=== PATIENT | female | born 1945 | race Caucasian/White ===

== ENCOUNTER 2019-01-24 11:23 | Emergency (ER) | payer MEDICARE, MEDICAID, SELFPAY ==
[2019-01-24 11:33] VITALS: BP 118/68; PULSE 93; RESP 22; TEMP 37.2; O2SAT 95; BMI 48.4
--- NOTE | 2019-01-24 11:33 | DI.RAD.S_ITS ---
PROCEDURE: XR CHEST 1V INDICATIONS: chest pain TECHNIQUE: One view of the chest was acquired. COMPARISON: [facility], , CHEST 1 VIEW, 12/05/2007, 22:53. FINDINGS: Surgical changes and devices: None. Lungs and pleura: Mild emphysematous changes are noted in bilateral lung soliz. Mild pulmonary vascular congestion is also noted. No definite focal infiltrate. No pleural effusions or pneumothorax. Mediastinum: Mildly tortuous thoracic aorta is seen with aortic arch calcifications.. Heart size is normal. Bones and chest wall: No suspicious bony lesions. Overlying soft tissues appear unremarkable. IMPRESSION: Mild pulmonary vascular congestion and COPD. No focal infiltrate, significant pleural effusion or pneumothorax. Dictated by: Archie Daigle M.D. on 01/24/2019 at 11:58 Approved by: Archie Daigle M.D. on 01/24/2019 at 12:02
--- NOTE | 2019-01-24 11:50 | ED_ITS ---
HPI - Chest Pain General Chief Complaint: Chest Pain Stated Complaint: edema legs,bad heart Time Seen by Provider: 01/24/19 11:45 Source: patient, EMS, old records reviewed and other (caregiver) Mode of arrival: EMS Limitations: no limitations History of Present Illness HPI narrative: This is a 74-year-old female was sent to the emergency department for evaluation by her primary care. She saw her physician doctor [facility] yesterday and they wanted her to go to the possible admission for congestive heart failure. Patient states she had some personal issues to attend to and then came here to the ER today. She states she has been increasingly swollen with intermittent episodes of chest pain since Sunday. Probably even before that but she is not sure about the timeline. She states she does she has difficulty breathing when she exerts herself. She has had a chronic cough, she has had clear productive sputum for about 2 months. No other upper respiratory symptoms. She states she has been told she has COPD, she denies any nausea no vomiting she has some early satiety. No issues with bowel movements, no urinary symptoms. Patient states she has not had any new changes to her medications. S he did take nitro sublingually 3 times yesterday, she typically has used it about 5 times over 3 months. She is not sure if she has any atrial fibrillation she states she does have congestive heart failure, she has COPD, she has depression as well as GERD. She has had multiple surgeries. She is from for 57 years and quit years ago, denies tobacco or illicit. She sees either Dr. Crowley or Karen for cardiology. Related Data Home Medications Medication Instructions Recorded Confirmed amlodipine 10 mg PO DAILY 01/24/19 01/24/19 aripiprazole 5 mg PO DAILY 01/24/19 01/24/19 calcium carbonate-vitamin D3 1 tab PO BID 01/24/19 01/24/19 [Calcium 500 + D (D3)] carboxymethylcellulose sodium 2 drp EYE-BOTH QID PRN 01/24/19 01/24/19 citalopram 15 mg PO DAILY 01/24/19 01/24/19 dicyclomine 20 mg PO TID PRN 01/24/19 01/24/19 doxepin 30 mg PO BEDTIME 01/24/19 01/24/19 epinephrine 0.3 mg IM PRN PRN 01/24/19 01/24/19 famotidine 1 tab PO PRN PRN 01/24/19 01/24/19 furosemide 20 mg PO DAILY 01/24/19 01/24/19 garlic 1 cap PO DAILY 01/24/19 01/24/19 ipratropium-albuterol 1 puff INHALATION QID 01/24/19 01/24/19 loratadine 10 mg PO DAILY 01/24/19 01/24/19 metoprolol tartrate 50 mg PO BID 01/24/19 01/24/19 miconazole nitrate 1 applic TOPICAL BID 01/24/19 01/24/19 multivitamin with minerals 1 cap PO DAILY 01/24/19 01/24/19 nitroglycerin 0.4 mg SUBLINGUAL Q5-15M PRN 01/24/19 01/24/19 pantoprazole 40 mg PO BID 01/24/19 01/24/19 simvastatin 20 mg PO BEDTIME 01/24/19 01/24/19 sodium chloride 2 spray INTRANASAL 5XD PRN 01/24/19 01/24/19 vitamin B complex 1 cap PO DAILY 01/24/19 01/24/19 Previous Rx's Medication Instructions Recorded furosemide [Lasix] 20 mg PO DAILY #5 tab 01/24/19 Allergies Allergy/AdvReac Type Severity Reaction Status Date / Time acetaminophen [From Vicodin] Allergy Unknown Verified 01/24/19 12:17 alcohol Allergy Unknown Verified 01/24/19 12:17 ammonia Allergy Unknown Verified 01/24/19 12:17 aspirin Allergy Unknown Verified 01/24/19 12:17 azithromycin Allergy Unknown Verified 01/24/19 12:17 baclofen Allergy Unknown Verified 01/24/19 12:17 buspirone Allergy Unknown Verified 01/24/19 12:17 caffeine Allergy Unknown Verified 01/24/19 12:17 cetirizine Allergy Unknown Verified 01/24/19 12:17 choline salicylate Allergy Unknown Verified 01/24/19 12:17 [From Trilisate] citalopram Allergy Unknown Verified 01/24/19 12:17 codeine Allergy Unknown Verified 01/24/19 12:17 cortisone Allergy Unknown Verified 01/24/19 12:17 cycloserine [From Seromycin] Allergy Unknown Verified 01/24/19 12:17 cyproheptadine Allergy Unknown Verified 01/24/19 12:17 divalproex sodium Allergy Unknown Verified 01/24/19 12:17 erythromycin base Allergy Unknown Verified 01/24/19 12:17 fentanyl [From Duragesic] Allergy Unknown Verified 01/24/19 12:17 fluoxetine Allergy Unknown Verified 01/24/19 12:17 fluticasone Allergy Unknown Verified 01/24/19 12:17 fluvoxamine Allergy Unknown Verified 01/24/19 12:17 gabapentin Allergy Unknown Verified 01/24/19 12:17 garlic Allergy Unknown Verified 01/24/19 12:17 guaifenesin Allergy Unknown Verified 01/24/19 12:17 hornet venom Allergy Unknown Verified 01/24/19 12:17 hydralazine Allergy Unknown Verified 01/24/19 12:17 hydrochlorothiazide Allergy Unknown Verified 01/24/19 12:17 hydrocodone [From Vicodin] Allergy Unknown Verified 01/24/19 12:17 iodine Allergy Unknown Verified 01/24/19 12:17 ipecac Allergy Unknown Verified 01/24/19 12:17 ketorolac [From Toradol] Allergy Unknown Verified 01/24/19 12:17 lansoprazole Allergy Unknown Verified 01/24/19 12:17 levothyroxine Allergy Unknown Verified 01/24/19 12:17 lidocaine Allergy Unknown Verified 01/24/19 12:17 loperamide Allergy Unknown Verified 01/24/19 12:17 magnesium citrate Allergy Unknown Verified 01/24/19 12:17 magnesium salicylate Allergy Unknown Verified 01/24/19 12:17 [From Trilisate] methadone Allergy Unknown Verified 01/24/19 12:17 methocarbamol Allergy Unknown Verified 01/24/19 12:17 midazolam Allergy Unknown Verified 01/24/19 12:17 mirtazapine Allergy Unknown Verified 01/24/19 12:17 morphine Allergy Unknown Verified 01/24/19 12:17 nefazodone Allergy Unknown Verified 01/24/19 12:17 nimodipine Allergy Unknown Verified 01/24/19 12:17 nortriptyline Allergy Unknown Verified 01/24/19 12:17 omeprazole Allergy Unknown Verified 01/24/19 12:17 oxycodone [From Percodan] Allergy Unknown Verified 01/24/19 12:17 oxytocin Allergy Unknown Verified 01/24/19 12:17 paroxetine Allergy Unknown Verified 01/24/19 12:17 Penicillins Allergy Unknown Verified 01/24/19 12:17 phenytoin Allergy Unknown Verified 01/24/19 12:17 promethazine Allergy Unknown Verified 01/24/19 12:17 propofol Allergy Unknown Verified 01/24/19 12:17 pseudoephedrine Allergy Unknown Verified 01/24/19 12:17 psyllium Allergy Unknown Verified 01/24/19 12:17 pyridostigmine Allergy Unknown Verified 01/24/19 12:17 [From Mestinon] quetiapine Allergy Unknown Verified 01/24/19 12:17 rabeprazole Allergy Unknown Verified 01/24/19 12:17 ranitidine Allergy Unknown Verified 01/24/19 12:17 risperidone Allergy Unknown Verified 01/24/19 12:17 sertraline Allergy Unknown Verified 01/24/19 12:17 sodium phosphate Allergy Unknown Verified 01/24/19 12:17 [From Fleet Enema] sucralose Allergy Unknown Verified 01/24/19 12:17 sulfur dioxide Allergy Unknown Verified 01/24/19 12:17 sumatriptan Allergy Unknown Verified 01/24/19 12:17 temazepam Allergy Unknown Verified 01/24/19 12:17 tetracycline Allergy Unknown Verified 01/24/19 12:17 trazodone Allergy Unknown Verified 01/24/19 12:17 venlafaxine Allergy Unknown Verified 01/24/19 12:17 zolpidem Allergy Unknown Verified 01/24/19 12:17 beans Allergy Unknown Uncoded 01/24/19 12:17 chlorine bleach Allergy Unknown Uncoded 01/24/19 12:17 jalapeno peppers Allergy Unknown Uncoded 01/24/19 12:17 paper tape Allergy Unknown Uncoded 01/24/19 12:17 plastics Allergy Unknown Uncoded 01/24/19 12:17 suntan lotions Allergy Unknown Uncoded 01/24/19 12:17 surgical tape Allergy Unknown Uncoded 01/24/19 12:17 Review of Systems Review of Systems ROS Unobtainable: All systems reviewed & are unremarkable except as noted in HPI and below Constitutional Denies chills, Denies fever(s), Denies lethargy and Denies weakness Cardiovascular Reports chest pain, Denies diaphoresis, Denies syncope, Reports edema, Denies irregular heart rhythm, Denies lightheadedness, Denies palpitations, Reports dyspnea, Reports dyspnea on exertion and Denies orthopnea Respiratory Denies change in phlegm color, Denies chest congestion, Reports cough, Reports excessive phlegm production (clear), Reports dyspnea, Reports dyspnea on exertion and Reports wheezing (intermittent) Gastrointestinal Gastrointestinal: Denies abdominal pain, Denies melena, Denies hematochezia, Denies change in bowel habits, Denies diarrhea, Denies nausea and Denies vomiting Genitourinary Denies hematuria, Reports urinary frequency (after taking lasix), Denies dysuria, Denies flank pain, Reports urinary incontinence and Denies urinary urgency Integumentary/Breasts Reports rash (mild redness on lower legs.) Neurologic Denies syncope and Denies weakness Endocrine Denies palpitations Allergic/Immunologic Reports wheezing (intermittent) [facility] Medical History (Updated 01/24/19 @ 13:15 by Rachna Tyson DO) CHF (congestive heart failure) (Chronic) COPD (chronic obstructive pulmonary disease) (Chronic) Depression (Chronic) GERD (gastroesophageal reflux disease) (Chronic) Social History Smoking Status: Former smoker Social History (Updated 01/24/19 @ 12:24 by Rachna Tyson DO) Smoking Status: Former smoker alcohol intake: current substance use type: does not use Exam Narrative Exam Narrative: GENERAL: Alert and oriented x three, obese female in mild distress. HEENT: Head normocephalic, atraumatic, EOMI, pupils reactive, face symmetric, moist mucous membranes NECK: Supple, full range of motion CARDIOVASCULAR: Regular rate and rhythm without murmurs, rubs or gallops. RESPIRATORY: Breath sounds equal bilaterally, no wheezes rales or rhonchi. No tachypnea, no accessory muscle use. ABDOMEN: Soft, nontender. Normoactive bowel sounds all 4 quadrants. No guarding or rebound, rigidity, no mass : No CVA tenderness EXTREMITIES: Normal range of motion, no clubbing. 2+ edema bilateral lower extremities. Pitting. Patient has cap refill less than 2 seconds in all 5 toes. Patient has maybe some very mild erythema bilateral lower extremities but no clear cellulitis. Neurovascularly intact NEUROLOGICAL: Cranial nerves II through XII grossly intact. Moving all extremit ies SKIN: Warm, dry, no petechiae, no rashes or lesions. Initial Vital Signs Initial Vital Signs: Vital Signs Temperature 98.9 F 01/24/19 11:33 Pulse Rate 93 H 01/24/19 11:33 Respiratory Rate 22 01/24/19 11:33 Blood Pressure 118/68 01/24/19 11:33 Pulse Oximetry 95 01/24/19 11:33 Course Orders Ordered: ED Orders 01/24/19 11:33 XR chest 1V Stat EKG-12 Lead Stat 01/24/19 12:00 B Type Natriuretic Peptide Stat Complete Blood Count AUTO DIFF Stat Comprehensive Metabolic Panel Stat Lipase Stat Partial Thromboplastin Time Stat Prothrombin Time INR Stat Troponin & CK Cardiac Panel Stat Discontinued Medications Furosemide (Lasix) 40 mg IV NOW ONE Stop: 01/24/19 12:27 Last Admin: 01/24/19 12:27 Dose: 40 mg Vital Signs - 8 hr 01/24/19 11:33 01/24/19 12:19 01/24/19 13:00 Temperature 98.9 F Pulse Rate 93 H 87 88 Respiratory Rate 22 18 22 Blood Pressure 118/68 Blood Pressure [Left Arm] 118/68 149/92 H Pulse Oximetry 95 94 92 MDM - Chest Pain Lab Data Attestation: I reviewed the patient's lab results. Result diagrams: 01/24/19 12:00 01/24/19 12:00 Lab Results 01/24/19 01/24/19 01/24/19 Range/Units 12:00 12:00 12:00 WBC 8.0 (4.5-11.0) X10^3/uL RBC 4.33 (4.0-5.2) X10^6/uL Hgb 13.0 (12.0-16.0) g/dL Hct 39.1 (36-46) % MCV 90.3 (80-100) fL MCH 30.0 (26-34) PG MCHC 33.3 (30-36) % RDW 15.3 H (11.6-14.8) % Plt Count 303 (150-400) X10^3/uL Neut % (Auto) 62.7 (50-75) % Lymph % (Auto) 25.7 (25-40) % [place] % (Auto) 10.2 (3-14) % Eos % (Auto) 1.0 L (2-4) % Baso % (Auto) 0.4 (0-2) % Neut # (Auto) 5000 (1957-3630) /uL Lymph # (Auto) 2100 (1038-7232) /uL [place] # (Auto) 800 (0-900) /uL Eos # (Auto) 100 (0-450) /uL Baso # (Auto) 0 (0-100) /uL PT 11.1 (10.1-12.7) SECONDS INR 1.0 (0.9-1.3) APTT 30 (26.4-36.2) SECONDS Sodium 141 (137-145) mmol/L Potassium 5.3 H (3.4-5.1) mmol/L Chloride 99 (98-107) mmol/L Carbon Dioxide 31 (22-32) mmol/L BUN 23 H (7-17) mg/dL Creatinine 1.20 H (0.52-1.04) mg/dL Estimated GFR 43.8 L (>60) mL/min BUN/Creatinine Ratio 19.2 (6-22) Glucose 124 H (80-110) mg/dL Calcium 9.8 (8.4-10.2) mg/dL Total Bilirubin 0.5 (0.2-1.3) mg/dL AST 31 (14-36) IU/L ALT 23 (9-52) IU/L Alkaline Phosphatase 75 (38-126) U/L Total Creatine Kinase 53 (30-135) U/L CK-MB (CK-2) TNP CK-MB (CK-2) Rel Index TNP Troponin I < 0.012 (0.01-0.034) ng/mL B-Natriuretic Peptide (<100) Total Protein 7.8 (6.3-8.2) g/dL Albumin 4.4 (3.5-5.0) g/dL Globulin 3.4 (1.7-4.1) g/dL Albumin/Globulin Ratio 1.3 (1.0-2.8) Lipase 94 (23-300) U/L 01/24/19 Range/Units 12:00 WBC (4.5-11.0) X10^3/uL RBC (4.0-5.2) X10^6/uL Hgb (12.0-16.0) g/dL Hct (36-46) % MCV (80-100) fL MCH (26-34) PG MCHC (30-36) % RDW (11.6-14.8) % Plt Count (150-400) X10^3/uL Neut % (Auto) (50-75) % Lymph % (Auto) (25-40) % [place] % (Auto) (3-14) % Eos % (Auto) (2-4) % Baso % (Auto) (0-2) % Neut # (Auto) (1257-0610) /uL Lymph # (Auto) (8571-5805) /uL [place] # (Auto) (0-900) /uL Eos # (Auto) (0-450) /uL Baso # (Auto) (0-100) /uL PT (10.1-12.7) SECONDS INR (0.9-1.3) APTT (26.4-36.2) SECONDS Sodium (137-145) mmol/L Potassium (3.4-5.1) mmol/L Chloride (98-107) mmol/L Carbon Dioxide (22-32) mmol/L BUN (7-17) mg/dL Creatinine (0.52-1.04) mg/dL Estimated GFR (>60) mL/min BUN/Creatinine Ratio (6-22) Glucose (80-110) mg/dL Calcium (8.4-10.2) mg/dL Total Bilirubin (0.2-1.3) mg/dL AST (14-36) IU/L ALT (9-52) IU/L Alkaline Phosphatase (38-126) U/L Total Creatine Kinase (30-135) U/L CK-MB (CK-2) CK-MB (CK-2) Rel Index Troponin I (0.01-0.034) ng/mL B-Natriuretic Peptide < 100 (<100) Total Protein (6.3-8.2) g/dL Albumin (3.5-5.0) g/dL Globulin (1.7-4.1) g/dL Albumin/Globulin Ratio (1.0-2.8) Lipase (23-300) U/L Urine Dip Bedside Urine Glucose Negative Bedside Urine Bilirubin - Negative Bedside Urine Ketone - Negative Urine Specific [place] 1.020 Bedside Urine Occult Blood - Negative Bedside Urine pH 6.0 Bedside Urine Protein - Negative Bedside Urine Urobilinogen - Negative Bedside Urine Nitrite - Negative Bedside Urine Leukocytes +++ 500 Esterase Imaging Data Chest x-ray: Radiologist's impression: [address] [address] XRay Report Signed Patient: Galina Roque [facility]#: [id number] : 4Acct:[id number] Age/Sex: 74 / FDate of Service: 01/24/19 Loc: ED Accession Number: [id number] Procedure: XR chest 1V Ordering Provider: Rachna Tyson D.O. PROCEDURE: XR CHEST 1V INDICATIONS: chest pain TECHNIQUE: One view of the chest was acquired. COMPARISON: [facility], CHEST 1 VIEW, 12/05/2007, 22:53. FINDINGS: Surgical changes and devices: None. Lungs and pleura: Mild emphysematous changes are noted in bilateral lung soliz. Mild pulmonary vascular congestion is also noted. No definite focal infiltrate. No pleural effusions or pneumothorax. Mediastinum: Mildly tortuous thoracic aorta is seen with aortic arch calcifications.. Heart size is normal. Bones and chest wall: No suspicious bony lesions. Overlying soft tissues appear unremarkable. IMPRESSION: Mild pulmonary vascular congestion and COPD. No focal infiltrate, significant pleural effusion or pneumothorax. Dictated by: Archie Daigle M.D. on 01/24/2019 at 11:58 Approved by: Archie Daigle M.D. on 01/24/2019 at 12:02 ECG Data Attestation: I personally reviewed and interpreted this ECG as follows: Prior ECG tracings: not available for review Interpretation: Sinus rhythm rate of 93 P are 170 QRS of 154 QTC of 440. Patient appears to have a right bundle branch block. No prior EKGs available. MDM Narrative Medical decision making narrative: Attempting to get records from [facility] as patient has extensive medical issues. She also has a very extensive allergy list. And she has a list that she brings that is handwritten that has and index and is cross referenced for each allergy in alphabetical order. Patient has significant swelling in her lower extremities she does appear to be fluid overloaded at least distally. On physical exam she does not have crackle s, her troponin, BNP are in the normal range. Potassium slightly elevated and creatinine is 1.2. Discussed with the patient I would like for her to continue her Lasix but slightly increased at 60 mg instead of 40. I would like her to make sure she is rechecked on her potassium and creatinine in the next 24-48 hours. Patient I did discuss possibly keeping her here for observation. Patient feels comfortable returning home. We did discuss signs and symptoms to watch for and reasons to return emergently. She has a follow-up appointment this coming week with her straight edger Discharge Plan Departure Patient Disposition: Home Clinical Impression: CHF (congestive heart failure) Discharge Date/Time: 01/24/19 13:43 Interventions: ED Discharge Assessment Last Done: 01/24/19 13:42 Instructions: DI for Heart Failure Activity Restrictions/Additional Instructions: Follow-up with your straight edger your appointment next week. Increase your Lasix from 40 mg to 60 mg total. Take this for 5 days total. Continue your other home medications as prescribed but stop your potassium. Go to the lab to get your labs rechecked either on Sunday or Sunday. Return to the emergency the department for new or worsening symptoms, worsening chest pain, shortness of breath, worsening swelling in her lower extremities, passing out or other new or concerning symptoms Prescriptions: New furosemide [Lasix] 20 mg tablet 20 mg PO DAILY Qty: 5 RF: 0 No Action citalopram 10 mg Tablet 15 mg PO DAILY RF: 0 dicyclomine 20 mg Tablet 20 mg PO TID PRN (Reason: Cramps) RF: 0 carboxymethylcellulose sodium 0.5 % Drops 2 drp EYE-BOTH QID PRN (Reason: Dry Eyes) RF: 0 amlodipine 10 mg Tablet 10 mg PO DAILY RF: 0 aripiprazole 10 mg Tablet 5 mg PO DAILY RF: 0 calcium carbonate-vitamin D3 [Calcium 500 + D (D3)] 500 mg(1,250mg) -125 unit Tablet 1 tab PO BID RF: 0 ipratropium-albuterol 20-100 mcg/actuation Mist 1 puff inhalation QID RF: 0 garlic 1 cap PO DAILY RF: 0 miconazole nitrate 2 % Cream 1 applic TOPICAL BID RF: 0 doxepin 10 mg Capsule 30 mg PO BEDTIME RF: 0 pantoprazole 40 mg Tablet,Delayed Release (Dr/Ec) 40 mg PO BID RF: 0 simvastatin 20 mg Tablet 20 mg PO BEDTIME RF: 0 metoprolol tartrate 50 mg Tablet 50 mg PO BID RF: 0 nitroglycerin 0.4 mg Tablet, Sublingual 0.4 mg SUBLINGUAL Q5-15M PRN (Reason: Chest Pain) RF: 0 furosemide 20 mg Tablet 20 mg PO DAILY RF: 0 epinephrine 0.3 mg/0.3 mL Auto-Injector 0.3 mg IM PRN PRN (Reason: Allergic Reaction) RF: 0 loratadine 10 mg Tablet 10 mg PO DAILY RF: 0 vitamin B complex Capsule 1 cap PO DAILY RF: 0 multivitamin with minerals Capsule 1 cap PO DAILY RF: 0 sodium chloride 0.65 % Aerosol,[place] 2 spray INTRANASAL 5XD PRN (Reason: Congestion) RF: 0 famotidine 1 tab PO PRN PRN (Reason: Breakthrough Pain) RF: 0
[2019-01-24 12:09] LABS: Add Manual Diff / Slide Review NO; Basophils Absolute Auto 0 /uL (0-100); Basophils Percent Auto 0.4 % (0-2); Eosinophils Absolute Auto 100 /uL (0-450); Hematocrit 39.1 % (36-46); Lymphocytes Absolute Auto 2100 /uL (1100-4500); Lymphocytes Percent Auto 25.7 % (25-40); Mean Corpuscular HGB Conc 33.3 % (30-36); Mean Corpuscular Volume 90.3 fL (80-100); Monocytes Absolute Auto 800 /uL (0-900); Monocytes Percent Auto 10.2 % (3-14); Neutrophils Absolute Auto 5000 /uL (1500-7000); Neutrophils Percent Auto 62.7 % (50-75); Platelet Count 303 X10^3/uL (150-400); Red Blood Cell Count 4.33 X10^6/uL (4.0-5.2); Red Cell Distribution Width 15.3 % (11.6-14.8)
[2019-01-24 12:15] LABS: Prothrombin Time 11.1 SECONDS (10.1-12.7)
[2019-01-24 12:17] LABS: PTT Partial Thromboplastin Tim 30 SECONDS (26.4-36.2)
[2019-01-24 12:19] VITALS: BP 118/68; PULSE 87; RESP 18; O2SAT 94
[2019-01-24 12:22] LABS: Alanine Aminotransferase 23 IU/L (9-52); Albumin 4.4 g/dL (3.5-5.0); Albumin Globulin Ratio 1.3 (1.0-2.8); Alkaline Phosphatase 75 U/L (38-126); Aspartate Aminotransferase 31 IU/L (14-36); BUN Creatinine Ratio 19.2 (6-22); Bilirubin Total 0.5 mg/dL (0.2-1.3); Blood Urea Nitrogen 23 mg/dL (7-17); Calcium 9.8 mg/dL (8.4-10.2); Carbon Dioxide 31 mmol/L (22-32); Chloride 99 mmol/L (98-107); Creatine Kinase 53 U/L (30-135); Estimated Glomerular Filt Rate 43.8 mL/min (>60); Globulin 3.4 g/dL (1.7-4.1); Glucose 124 mg/dL (80-110); HEMOLYSIS 19 (0-50); Lipase 94 U/L (23-300); Potassium 5.3 mmol/L (3.4-5.1); Sodium 141 mmol/L (137-145); Total Protein 7.8 g/dL (6.3-8.2)
[2019-01-24] MEDS: FUROSEMIDE 40 MG/4 ML VIAL IV (12:27)
[2019-01-24 12:33] LABS: Troponin I < 0.012 ng/mL (0.01-0.034)
[2019-01-24 12:43] LABS: B Type Natriuretic Peptide < 100 (<100)
[2019-01-24 13:00] VITALS: BP 149/92; PULSE 88; RESP 22; O2SAT 92
== END 2019-01-24 13:43 | disposition home or self-care (01) ==
PROVIDERS: Emergency Provider Emergency Medicine
DX: I50.9 Heart failure, unspecified (principal)
CPT/HCPCS: 36591; 71045; 80053; 81003; 82550; 83690; 83880; 84484; 85025; 85610; 85730; 93005; 96374; 99283; 99285; J1940

== ENCOUNTER → 2019-04-03 16:04 | Outpatient (CLI) | payer MEDICARE, MEDICAID, SELFPAY ==
--- NOTE | 2019-04-03 | DI.ECHO.S_ITS ---
[facility]---------+ [facility] +---------+ : : [address] : : : : [id number] : : : : Phone: [phone] Echocardiogram Report + + :Name: JOHANNA WISEMAN Study Date: 04/03/2019 Height: 65 in : :[facility] Weight: 290 lb: : Gender: Female BSA: 2.3 m2 : :: 1945 Age: 74 yrs : :Reason For Study: Murmur : : Performed By: aMria D Dillon : :Referring: ANAHI CROWLEY : + + Interpretation Summary Patient refused IV start so no Definity contrast was used. Patients heart was slightly right of midline so parasternal images were obtained to the right of patients sternum. 1) Normal left ventricular size, thickness, and systolic function (EF 60-65%). 2) There are no obvious focal wall motion abnormalities noted but poor endocardial definition reduces the sensitivity for the detection of such. 3) There is mild to moderate mitral regurgitation. 4) No prior Echo available for comparison. Procedure: A two-dimensional transthoracic echocardiogram with color flow and Doppler was performed. The study quality was technically difficult. There is no prior echocardiogram noted for this patient. The patient was in normal sinus rhythm during the exam. Left Ventricle: The left ventricle is normal in size. There is normal left ventricular wall thickness. The ejection fraction is estimated to be 60-65%. Left ventricular systolic function is normal. There are no obvious focal wall motion abnormalities noted but poor endocardial definition reduces the sensitivity for the detection of such. Right Ventricle: The right ventricle is grossly normal size. Right ventricular systolic function is mildly reduced. Atria: The left atrium is mildly dilated. Right atrial size is normal. The interatrial septum is intact with no evidence for an atrial septal defect. Mitral Valve: The mitral valve is grossly normal. There is mild to moderate mitral regurgitation. Aortic Valve: The aortic valve is mildly calcified. There is mildly reduced leaflet mobility. There is no aortic valve stenosis. No aortic regurgitation is present. Tricuspid Valve: The tricuspid valve is normal in structure and function. There is a trace or physiologic amount of tricuspid regurgitation. The right ventricular systolic pressure is estimated to be at least 25 mmHg based on an estimated right atrial pressure of 3 mm Hg. Pulmonic Valve: The pulmonic valve is not well visualized. Great Vessels: The aortic root is normal size. The ascending aorta is at the upper limits of normal in size. The aortic arch is normal in size. The IVC is of normal diameter and collapses greater than 50% with a sniff. This suggests a low right atrial pressure of 3 mm Hg. Pericardium/ Pleura There is no pericardial effusion. There is no pleural effusion. MMode/2D Measurements & Calculations Ao root diam: 3.4 cm LA dimension: 4.5 cm Aortic Jxn: 2.8 cm LA A2 area: 26.6 cm2 asc Aorta Diam: 3.5 cm LA A4 area: 24.7 cm2 Ao Arch Diam (Prox Trans): 2.8 cm LA length (vol): 6.3 cm LA vol: 88.5 ml LA vol index: 38.2 ml/m2 RA long axis: 5.5 cm RA area: 20.0 cm2 RA vol: 61.3 ml RA : 26.5 ml/m2 IVC diam: 1.6 cm Doppler Measurements & Calculations Ao V2 max: 170.5 cm/sec MV E max annie: 96.9 cm/sec Ao V2 mean: 104.3 cm/sec MV A max annie: 77.6 cm/sec Ao max P.6 mmHg MV E/A: 1.2 Ao mean P.4 mmHg MV dec time: 0.27 sec Ao V2 VTI: 42.2 cm MV P1/2t: 77.5 msec TR max annie: 236.5 cm/sec MV P1/2t max annie: 96.4 cm/sec TR max P.4 mmHg MVA(P1/2t): 2.8 cm2 Reading Physician:09:30 PM
== END ==
PROVIDERS: Visit Provider Internal Medicine Cardiovascular Disease
DX: I34.0 Nonrheumatic mitral (valve) insufficiency (principal); R01.1 Cardiac murmur, unspecified
CPT/HCPCS: 93306

== ENCOUNTER 2022-01-08 19:22 | Observation (INO) | payer MEDICARE, MEDICAID, SELFPAY ==
[2022-01-08] VITALS (14 sets, daily range): BP systolic 187–227; BP diastolic 82–116; PULSE 66–79; RESP 16; TEMP 36.9; O2SAT 91–98
[2022-01-08 20:06] LABS: Add Manual Diff / Slide Review NO; Basophils Absolute Auto 0 /uL (0-100); Basophils Percent Auto 0.5 % (0-2); Eosinophils Absolute Auto 100 /uL (0-450); Eosinophils Percent Auto 1.4 % (2-4); Hematocrit 33.4 % (36-46); Lymphocytes Absolute Auto 1300 /uL (1100-4500); Lymphocytes Percent Auto 16.5 % (25-40); Mean Corpuscular HGB Conc 32.9 % (30-36); Mean Corpuscular Hemoglobin 30.5 PG (26-34); Mean Corpuscular Volume 92.8 fL (80-100); Monocytes Absolute Auto 700 /uL (0-900); Monocytes Percent Auto 9.4 % (3-14); Neutrophils Absolute Auto 5600 /uL (1500-7000); Neutrophils Percent Auto 72.2 % (50-75); Platelet Count 300 X10^3/uL (150-400); Red Cell Distribution Width 15.6 % (11.6-14.8); White Blood Cell Count 7.7 X10^3/uL (4.5-11.0)
[2022-01-08 20:18] LABS: Alanine Aminotransferase 24 IU/L (<35); Albumin Globulin Ratio 1.1 (1.0-2.8); Alkaline Phosphatase 69 U/L (38-126); Aspartate Aminotransferase 33 IU/L (14-36); BUN Creatinine Ratio 14.1 (6-22); Bilirubin Total 0.8 mg/dL (0.2-1.3); Blood Urea Nitrogen 14 mg/dL (7-17); Carbon Dioxide 33 mmol/L (22-32); Chloride 99 mmol/L (98-107); Creatine Kinase 41 U/L (30-135); Estimated Glomerular Filt Rate 58 mL/min (>60); Globulin 3.6 g/dL (1.7-4.1); Glucose 111 mg/dL (80-110); Sodium 137 mmol/L (137-145); Total Protein 7.6 g/dL (6.3-8.2)
--- NOTE | 2022-01-08 20:18 | DI.CT.S_ITS ---
PROCEDURE: CT LE LT W CON INDICATIONS: pain, fall, knee TECHNIQUE: Noncontrast 1-1.5 mm axial sections acquired from the mid-patella through the foot and ankle with coronal and sagittal reformats. COMPARISON: None. FINDINGS: Image quality: Excellent. Bones: There is a comminuted fracture of the medial femoral condyle posteriorly which is incompletely included on the current study. There is also suspected fracture of the lateral femoral condyle posteriorly which is incompletely included on the current exam. There is a nondepressed mildly displaced fracture of the lateral tibial plateau. Diffuse osteopenia is present limiting evaluation of non displaced fractures. Soft tissues: There is a partially visualized knee joint effusion. Periarticular soft tissue edema is present at the knee. There is also subcutaneous edema along the anterolateral aspect of the lower leg. IMPRESSION: 1. Nondepressed mildly displaced fracture of the lateral tibial plateau. 2. Comminuted fracture of the medial femoral condyle posteriorly partially visualized. 3. Suspected fracture of the lateral femoral condyle posteriorly but incompletely included on the current study. Consider dedicated study of the femur for further evaluation. Dictated by: Bobby Cobian M.D. on 01/08/2022 at 21:19 Approved by: Bobby Cobian M.D. on 01/08/2022 at 21:24
--- NOTE | 2022-01-08 20:25 | ED_ITS ---
HPI - Extremity Injury (Lower) General Chief Complaint: Extremity Injury, Lower Stated Complaint: L knee pain. fall yesterday Time Seen by Provider: 01/08/22 19:25 History of Present Illness HPI Narrative: 77-year-old female former smoker with history of hypertension, hyperlipidemia, osteoarthritis, fibromyalgia and chronic bilateral lower extremity lymphedema presents by EMS with a chief complaint of severe left lower extremity pain. She had a ground level fall yesterday in which she landed on her hip in lower leg and had been seen and evaluated at an outside facility with extensive imaging including CAT scan of pelvis and hip, CT scan of head, and x-ray of knee. There were no significant findings and patient was discharged home. She lives at home and does have a caregiver 2-4 hours daily, but is unable to bear any weight and cannot ambulate, before this fall she could, although with assistance. She is here because she has so much pain that she can not get around. She is not dizzy nor weak or lightheaded. She denies any chest pain or shortness of breath. She has had no nausea or vomiting. Her pain is significant with palpation or attempts at ambulation and improves with rest. Records have been requested. She has a walker at baseline and takes no anticoagulation Related Data Home Medications Medication Instructions Recorded Confirmed amlodipine 10 mg tablet 10 mg PO DAILY 01/24/19 01/24/19 aripiprazole 10 mg tablet 5 mg PO DAILY 01/24/19 01/24/19 calcium carbonate 500 mg-vitamin 1 tab PO BID 01/24/19 01/24/19 D3 3.125 mcg (125 unit) tablet (Calcium) carboxymethylcellulose sodium 0.5 2 drp EYE-BOTH QID PRN Dry Eyes 01/24/19 01/24/19 % eye drops citalopram 10 mg tablet 15 mg PO DAILY 01/24/19 01/24/19 dicyclomine 20 mg tablet 20 mg PO TID PRN Cramps 01/24/19 01/24/19 doxepin 10 mg capsule 30 mg PO BEDTIME 01/24/19 01/24/19 epinephrine 0.3 mg/0.3 mL 0.3 mg IM PRN PRN Allergic Reaction 01/24/19 01/24/19 injection, auto-injector famotidine 1 tab PO PRN PRN Breakthrough Pain 01/24/19 01/24/19 furosemide 20 mg tablet 20 mg PO DAILY 01/24/19 01/24/19 garlic 1 cap PO DAILY 01/24/19 01/24/19 ipratropium 20 mcg-albuterol 100 1 puff inhalation QID 01/24/19 01/24/19 mcg/actuation mist for inhalation loratadine 10 mg tablet 10 mg PO DAILY 01/24/19 01/24/19 metoprolol tartrate 50 mg tablet 50 mg PO BID 01/24/19 01/24/19 miconazole nitrate 2 % topical 1 applic topical BID 01/24/19 01/24/19 cream multivitamin with minerals 1 cap PO DAILY 01/24/19 01/24/19 nitroglycerin 0.4 mg sublingual 0.4 mg sublingual Q5-15M PRN Chest 01/24/19 01/24/19 tablet Pain pantoprazole 40 mg tablet,delayed 40 mg PO BID 01/24/19 01/24/19 release simvastatin 20 mg tablet 20 mg PO BEDTIME 01/24/19 01/24/19 sodium chloride 0.65 % nasal spray 2 spray intranasal 5XD PRN 01/24/19 01/24/19 aerosol Congestion vitamin B complex 1 cap PO DAILY 01/24/19 01/24/19 Previous Rx's Medication Instructions Recorded furosemide 20 mg tablet (Lasix) 20 mg PO DAILY #5 tabs 01/24/19 Allergies Allergy/AdvReac Type Severity Reaction Status Date / Time acetaminophen [From Vicodin] Allergy Unknown Verified 01/24/19 12:17 alcohol Allergy Unknown Verified 01/24/19 12:17 ammonia Allergy Unknown Verified 01/24/19 12:17 aspirin Allergy Unknown Verified 01/24/19 12:17 azithromycin Allergy Unknown Verified 01/24/19 12:17 baclofen Allergy Unknown Verified 01/24/19 12:17 buspirone Allergy Unknown Verified 01/24/19 12:17 caffeine Allergy Unknown Verified 01/24/19 12:17 cetirizine Allergy Unknown Verified 01/24/19 12:17 choline salicylate Allergy Unknown Verified 01/24/19 12:17 [From Trilisate] citalopram Allergy Unknown Verified 01/24/19 12:17 codeine Allergy Unknown Verified 01/24/19 12:17 cortisone Allergy Unknown Verified 01/24/19 12:17 cycloserine [From Seromycin] Allergy Unknown Verified 01/24/19 12:17 cyproheptadine Allergy Unknown Verified 01/24/19 12:17 divalproex sodium Allergy Unknown Verified 01/24/19 12:17 erythromycin base Allergy Unknown Verified 01/24/19 12:17 fentanyl [From Duragesic] Allergy Unknown Verified 01/24/19 12:17 fluoxetine Allergy Unknown Verified 01/24/19 12:17 fluticasone Allergy Unknown Verified 01/24/19 12:17 fluvoxamine Allergy Unknown Verified 01/24/19 12:17 gabapentin Allergy Unknown Verified 01/24/19 12:17 garlic Allergy Unknown Verified 01/24/19 12:17 guaifenesin Allergy Unknown Verified 01/24/19 12:17 hornet venom Allergy Unknown Verified 01/24/19 12:17 hydralazine Allergy Unknown Verified 01/24/19 12:17 hydrochlorothiazide Allergy Unknown Verified 01/24/19 12:17 hydrocodone [From Vicodin] Allergy Unknown Verified 01/24/19 12:17 iodine Allergy Unknown Verified 01/24/19 12:17 ipecac Allergy Unknown Verified 01/24/19 12:17 ketorolac [From Toradol] Allergy Unknown Verified 01/24/19 12:17 lansoprazole Allergy Unknown Verified 01/24/19 12:17 levothyroxine Allergy Unknown Verified 01/24/19 12:17 lidocaine Allergy Unknown Verified 01/24/19 12:17 loperamide Allergy Unknown Verified 01/24/19 12:17 magnesium citrate Allergy Unknown Verified 01/24/19 12:17 magnesium salicylate Allergy Unknown Verified 01/24/19 12:17 [From Trilisate] methadone Allergy Unknown Verified 01/24/19 12:17 methocarbamol Allergy Unknown Verified 01/24/19 12:17 midazolam Allergy Unknown Verified 01/24/19 12:17 mirtazapine Allergy Unknown Verified 01/24/19 12:17 morphine Allergy Unknown Verified 01/24/19 12:17 nefazodone Allergy Unknown Verified 01/24/19 12:17 nimodipine Allergy Unknown Verified 01/24/19 12:17 nortriptyline Allergy Unknown Verified 01/24/19 12:17 omeprazole Allergy Unknown Verified 01/24/19 12:17 oxycodone [From Percodan] Allergy Unknown Verified 01/24/19 12:17 oxytocin Allergy Unknown Verified 01/24/19 12:17 paroxetine Allergy Unknown Verified 01/24/19 12:17 Penicillins Allergy Unknown Verified 01/24/19 12:17 phenytoin Allergy Unknown Verified 01/24/19 12:17 promethazine Allergy Unknown Verified 01/24/19 12:17 propofol Allergy Unknown Verified 01/24/19 12:17 pseudoephedrine Allergy Unknown Verified 01/24/19 12:17 psyllium Allergy Unknown Verified 01/24/19 12:17 pyridostigmine Allergy Unknown Verified 01/24/19 12:17 [From Mestinon] quetiapine Allergy Unknown Verified 01/24/19 12:17 rabeprazole Allergy Unknown Verified 01/24/19 12:17 ranitidine Allergy Unknown Verified 01/24/19 12:17 risperidone Allergy Unknown Verified 01/24/19 12:17 sertraline Allergy Unknown Verified 01/24/19 12:17 sodium phosphate Allergy Unknown Verified 01/24/19 12:17 [From Fleet Enema] sucralose Allergy Unknown Verified 01/24/19 12:17 sulfur dioxide Allergy Unknown Verified 01/24/19 12:17 sumatriptan Allergy Unknown Verified 01/24/19 12:17 temazepam Allergy Unknown Verified 01/24/19 12:17 tetracycline Allergy Unknown Verified 01/24/19 12:17 trazodone Allergy Unknown Verified 01/24/19 12:17 venlafaxine Allergy Unknown Verified 01/24/19 12:17 zolpidem Allergy Unknown Verified 01/24/19 12:17 beans Allergy Unknown Uncoded 01/24/19 12:17 chlorine bleach Allergy Unknown Uncoded 01/24/19 12:17 jalapeno peppers Allergy Unknown Uncoded 01/24/19 12:17 paper tape Allergy Unknown Uncoded 01/24/19 12:17 plastics Allergy Unknown Uncoded 01/24/19 12:17 suntan lotions Allergy Unknown Uncoded 01/24/19 12:17 surgical tape Allergy Unknown Uncoded 01/24/19 12:17 Review of Systems Review of Systems Narrative: GENERAL: Denies chills, fatigue, malaise, fever, sweats. HEENT: Denies sinus pain, ear pain, sore throat, difficulty swallowing, dizziness. RESPIRATORY: Denies dyspnea, cough, wheezing, hemoptysis, sputum. CARDIOVASCULAR: Denies chest pain, palpitations, orthopnea, edema, GASTROINTESTINAL: Denies nausea, vomiting, abdominal pain, diarrhea, constipation, melena. : Denies dysuria, frequency, incontinence, hematuria, urinary retention. MUSCULOSKELETAL: See HPI SKIN: Denies rash, skin lesions, or other NEUROLOGIC: Denies weakness, headache, numbness, change in speech, confusion, seizures, incoordination. PSYCHIATRIC: No concerning psychosocial issues. 12 point review of systems is negative except for those stated above Patient History Medical History CHF (congestive heart failure) COPD (chronic obstructive pulmonary disease) Depression GERD (gastroesophageal reflux disease) Social History Smoking Status: Former smoker alcohol intake: current substance use type: does not use Smoking Status: Former smoker alcohol intake frequency: 0-2 drinks per day Substance Use Type: does not use Exam Narrative Exam Narrative: GENERAL: [77] year old patient appears stated age. Well-developed patient, in mild distress. HEAD: Atraumatic. Normocephalic. EYES: Pupils equal round and reactive. Extraocular motions intact. No scleral icterus. No injection or drainage. ENT: Nose without bleeding, purulent drainage. Throat without erythema, tonsillar hypertrophy or exudate. Airway patent. NECK: Trachea midline. Non tender CARDIOVASCULAR: Regular rate and rhythm without murmurs, gallops, or rubs. RESPIRATORY: Clear to auscultation. Breath sounds equal bilaterally. No wheezes, rales, or rhonchi. GASTROINTESTINAL: Abdomen soft, non-tender, nondistended. EXTREMITIES: Significant pain on palpation of left knee with ecchymosis of left anterior high, pain along bony prominences without obvious ligamentous instability. BACK: Nontender without deformity or crepitance. No flank tenderness. NEURO: AOx3. SKIN: No rash or erythema of visible areas Initial Vital Signs Initial Vital Signs: Vital Signs Temperature 98.4 F 01/08/22 19:23 Pulse Rate 78 01/08/22 19:23 Respiratory Rate 16 01/08/22 19:23 Blood Pressure 227/87 H 01/08/22 19:23 Pulse Oximetry 97 01/08/22 19:23 Oxygen Delivery Method 01/08/22 19:23 Oxygen Flow Rate 3 01/08/22 19:23 Course Orders Ordered: ED Orders 01/08/22 19:59 Complete Blood Count AUTO DIFF Stat Comprehensive Metabolic Panel Stat Magnesium Stat NT-proBNP (BNP-Adult 18+) Stat Troponin & CK Cardiac Panel Stat 01/08/22 20:18 CT LE LT wo con Stat 01/08/22 21:10 COVID19 -Nasal RAPID/Pre-Proc Stat 01/08/22 21:33 XR femur LT min 2V Stat Amlodipine Besylate (Amlodipine 5 Mg Tablet) 10 mg PO DAILY [facility] Aripiprazole (Aripiprazole 10 Mg Tablet) 5 mg PO DAILY [facility] Citalopram Hydrobromide (Citalopram 10 Mg Tablet) 15 mg PO DAILY [facility] Dicyclomine HCl (Dicyclomine 10 Mg Capsule) 20 mg PO TID PRN PRN Reason: Cramps Doxepin HCl (Doxepin 10 Mg Capsule) 30 mg PO BEDTIME [facility] Enoxaparin Sodium (Enoxaparin 40 Mg/0.4 Ml Syringe) 40 mg SUBCUT DAILY [facility] Furosemide (Furosemide 20 Mg Tablet) 20 mg PO DAILY [facility] Metoprolol Tartrate (Metoprolol Ir 50 Mg Tablet) 50 mg PO BID [facility] Non-Formulary Medication (Ipratropium-Albuterol) 1 puff INHALATION QID [facility] Non-Formulary Medication (Simvastatin) 20 mg PO BEDTIME [facility] Oxycodone HCl (Oxycodone Ir 10 Mg Tablet) 10 mg PO Q4HR PRN PRN Reason: Pain, Severe (7-10) Oxycodone HCl (Oxycodone Ir 5 Mg Tablet) 5 mg PO Q4HR PRN PRN Reason: Pain, Moderate (4-6) Pantoprazole Sodium (Pantoprazole Dr 40 Mg Tablet) 40 mg PO BID [facility] Sennosides (Sennosides 8.6 Mg Tablet) 17.2 mg PO BEDTIME [facility]OVITA Discontinued Medications Amlodipine Besylate (Amlodipine 5 Mg Tablet) 10 mg PO NOW ONE Stop: 01/08/22 21:14 Last Admin: 01/08/22 21:59 Dose: 10 mg Documented By: AT Metoprolol Tartrate (Metoprolol Ir 25 Mg Tablet) 50 mg PO NOW ONE Stop: 01/09/22 00:21 Last Admin: 01/09/22 00:46 Dose: 50 mg Documented By: KP Consultations Consultation #1: discussed with ortho, non-surgical case. Recommends non weightbearing until knee immobilizer that fits can be obtained. Vital Signs Vital signs: Vital Signs - 8 hr 01/08/22 19:23 01/08/22 19:23 01/08/22 19:30 Temperature 98.4 F Pulse Rate 78 78 79 Respiratory Rate 16 Blood Pressure 227/87 H Pulse Oximetry 97 97 96 Oxygen Delivery Method Room Air Oxygen Flow Rate 3 01/08/22 20:00 01/08/22 20:30 01/08/22 21:00 Temperature Pulse Rate 77 74 76 Respiratory Rate Blood Pressure Pulse Oximetry 97 95 91 Oxygen Delivery Method Nasal Cannula Nasal Cannula Nasal Cannula Oxygen Flow Rate 3 3 3 01/08/22 21:11 01/08/22 21:11 01/08/22 21:30 Temperature Pulse Rate 74 75 Respiratory Rate Blood Pressure 187/82 H Pulse Oximetry 96 97 Oxygen Delivery Method Nasal Cannula Nasal Cannula Oxygen Flow Rate 3 3 01/08/22 21:58 01/08/22 21:58 01/08/22 22:00 Temperature Pulse Rate 75 72 Respiratory Rate Blood Pressure 216/116 H Pulse Oximetry 97 96 Oxygen Delivery Method Nasal Cannula Oxygen Flow Rate 3 01/08/22 22:30 01/08/22 23:00 01/08/22 23:01 Temperature Pulse Rate 72 66 67 Respiratory Rate Blood Pressure Pulse Oximetry 96 95 96 Oxygen Delivery Method Nasal Cannula Nasal Cannula Nasal Cannula Oxygen Flow Rate 3 3 3 01/08/22 23:01 01/08/22 23:30 01/08/22 23:36 Temperature Pulse Rate 69 70 Respiratory Rate Blood Pressure 224/93 H Pulse Oximetry 97 98 Oxygen Delivery Method Oxygen Flow Rate 01/08/22 23:36 01/09/22 00:00 Temperature Pulse Rate 74 Respiratory Rate Blood Pressure 217/93 H Pulse Oximetry 97 Oxygen Delivery Method Oxygen Flow Rate MDM - Extremity Injury (Lower) Lab Data Result diagrams: 01/08/22 19:59 01/08/22 19:59 Labs: Lab Results 01/08/22 01/08/22 01/08/22 Range/Units 19:59 19:59 21:10 WBC 7.7 (4.5-11.0) X10^3/uL RBC 3.60 L (4.0-5.2) X10^6/uL Hgb 11.0 L (12.0-16.0) g/dL Hct 33.4 L (36-46) % MCV 92.8 (80-100) fL MCH 30.5 (26-34) PG MCHC 32.9 (30-36) % RDW 15.6 H (11.6-14.8) % Plt Count 300 (150-400) X10^3/uL Neut % (Auto) 72.2 (50-75) % Lymph % (Auto) 16.5 L (25-40) % [place] % (Auto) 9.4 (3-14) % Eos % (Auto) 1.4 L (2-4) % Baso % (Auto) 0.5 (0-2) % Neut # (Auto) 5600 (1700-7146) /uL Lymph # (Auto) 1300 (8957-7791) /uL [place] # (Auto) 700 (0-900) /uL Eos # (Auto) 100 (0-450) /uL Baso # (Auto) 0 (0-100) /uL Sodium 137 (137-145) mmol/L Potassium 4.5 (3.4-5.1) mmol/L Chloride 99 (98-107) mmol/L Carbon Dioxide 33 H (22-32) mmol/L BUN 14 (7-17) mg/dL Creatinine 0.99 (0.52-1.04) mg/dL Estimated GFR 58 L (>60) mL/min BUN/Creatinine Ratio 14.1 (6-22) Glucose 111 H (80-110) mg/dL Calcium 9.0 (8.4-10.2) mg/dL Magnesium 2.0 (1.6-2.3) mg/dL Total Bilirubin 0.8 (0.2-1.3) mg/dL AST 33 (14-36) IU/L ALT 24 (<35) IU/L Alkaline Phosphatase 69 (38-126) U/L Total Creatine Kinase 41 (30-135) U/L CK-MB (CK-2) TNP CK-MB (CK-2) Rel Index TNP Troponin I 0.034 (0.01-0.034) ng/mL NT-Pro-B Natriuret Pep 1350 H (<450) pg/mL Total Protein 7.6 (6.3-8.2) g/dL Albumin 4.0 (3.5-5.0) g/dL Globulin 3.6 (1.7-4.1) g/dL Albumin/Globulin Ratio 1.1 (1.0-2.8) SARS-CoV-2 (PCR) Negative (Negative) Imaging Data CT LE: Radiologist's Impression: Close Lower Extremity CT (Signed) Bobby Cobian - 01/08/22 Launch?[address] [address] [address] Scan Report Signed Patient: Galina Roque MR#: [id number] : 1945 Acct:[id number] Age/Sex: 77 / F Date of Service: 01/08/22 Loc: ED Accession Number: [id number] ?? Procedure: CT LE LT wo con Ordering Provider: Barrington Oliveira D.O. PROCEDURE:? CT LE LT W CON ? INDICATIONS:? pain, fall, knee ? TECHNIQUE:? Noncontrast 1-1.5 mm axial sections acquired from the mid-patella through the foot and ankle with coronal and sagittal reformats.? ? COMPARISON:? None. ? FINDINGS:? Image quality:? Excellent.? ? Bones:? There is a comminuted fracture of the medial femoral condyle posteriorly which is incompletely included on the current study.? There is also suspected fracture of the lateral femoral condyle posteriorly which is incompletely included on the current exam.? There is a nondepressed mildly displaced fracture of the lateral tibial plateau.? Diffuse osteopenia is present limiting evaluation of non displaced fractures. ? Soft tissues:? There is a partially visualized knee joint effusion.? Periarticular soft tissue edema is present at the knee.? There is also subcutaneous edema along the anterolateral aspect of the lower leg. ? ? IMPRESSION:? ? 1. Nondepressed mildly displaced fracture of the lateral tibial plateau. ? 2. Comminuted fracture of the medial femoral condyle posteriorly partially visualized. ? 3. Suspected fracture of the lateral femoral condyle posteriorly but incompletely included on the current study.? Consider dedicated study of the femur for further evaluation. ? ? ? Dictated by: Bobby Cobian M.D. on 01/08/2022 at 21:19 ? ? Approved by: Bobby Cobian M.D. on 01/08/2022 at 21:24 ? Discharge Plan Departure Patient Disposition: Admitted As Inpatient Clinical Impression: Fracture of tibial plateau Admit Date/Time: 01/09/22 00:22 Admit Provider: Nevaeh Mauricio
[2022-01-08 20:27] LABS: HEMOLYSIS 62 (0-50); Potassium 4.5 mmol/L (3.4-5.1)
[2022-01-08 20:29] LABS: NT-proBNP (BNP-Adult 18+) 1350 pg/mL (<450); Troponin I 0.034 ng/mL (0.01-0.034)
--- NOTE | 2022-01-08 21:11 | PC.NURSE ---
pur wick placed on pt
[2022-01-08 21:31] LABS: COVID19 -Nasal RAPID Negative (Negative)
--- NOTE | 2022-01-08 21:33 | DI.RAD.S_ITS ---
PROCEDURE: XR FEMUR LT MIN 2V INDICATIONS: fall with knee pain, fracture on CT TECHNIQUE: 4 views of the femur were acquired. COMPARISON: [facility], CT, CT LE LT WO CON, 01/08/2022, 20:41. FINDINGS: Bones: Evaluation limited by suboptimal positioning. There is a mildly comminuted fracture of the medial femoral condyle posteriorly as seen on the preceding CT of the knee. No definite displaced fracture of the lateral femoral condyle on the current study. Lateral tibial plateau fracture seen on CT is also not well visualized. Soft tissues: Knee joint effusion is not well seen due to limited lateral view. There are diffuse vascular calcifications. IMPRESSION: 1. Limited study due to suboptimal positioning. 2. Comminuted fracture of the medial femoral condyle redemonstrated as seen on CT. 3. No definite fracture of the lateral femoral condyle on the current study but suspected fracture seen on CT cannot be excluded. 4. Lateral tibial plateau fracture seen on CT not well visualized on the current study. Dictated by: Bobby Cobian M.D. on 01/09/2022 at 0:05 Approved by: Bobby Cobian M.D. on 01/09/2022 at 0:09
[2022-01-08] MEDS: AMLODIPINE 5 MG TABLET 10 MG PO (21:59)
[2022-01-09] VITALS (19 sets, daily range): BP systolic 118–195; BP diastolic 62–75; PULSE 61–78; RESP 17–20; TEMP 36.3–37; O2SAT 94–98; BMI 52.9
[2022-01-09] MEDS: METOPROLOL IR 25 MG TABLET 50 MG PO (00:46)
--- NOTE | 2022-01-09 01:42 | P.HP_ITS ---
History of Present Illness History of Present Illness Date Patient Seen: 01/09/22 Time Patient Seen: 01:43 Chief complaint: L knee pain. fall yesterday Narrative: Galina Roque is a 77-year-old female with a history of COPD on home oxygen, cardiac murmur, dyspnea on exertion, CHF, hypertension, obesity, uses a walker, depression, GERD, osteoarthritis, hyperlipidemia, and bilateral lower extremity lymphedema who presented to [facility] ED with complaints of severe worsening lower extremity pain inability to weight bear, and ambulate. Patient experienced a ground level fall on 01/07/[address] [facility] ED where the patient had negative imaging of CT of pelvis, hip, head and knee. The patient was then DC to home. Upon developing worsening lower extremity pain and continued inability to weight bear or ambulate the patient was transported to [facility] ED. Imaging demonstrated Left commuted fracture of the medial femoral condyle and lateral tibial plateau fracture. She denied dizziness, weakness, lightheaded, chest pain, worsening shortness of breath, abd pain, nausea, or vomiting.? Her pain increased significantly with palpation, attempts at ambulation and improves with rest.? Records have been requested by the ED.? She has a walker at baseline, has 2 hrs in home care daily and takes no anticoagulation. Upon admit vital signs temp 98.4?, BP 195/74, HR 72, RR 16, O2 saturation 95% on 3 L nasal cannula, noted patient's BP upon admit to the ED 224/93. CBC: RBC 3.6, HGB 11, HCT 33.4, CMP WNL with the exception of GFR 58, BNP 1350, troponin 1. WNL but elevated 0.034, Last troponin<0.012. Left femur xray: Demonstrated a comminuted fracture of the medial femoral condyle and lateral tibial plateau fracture. Lower extremity CT: Demonstrated a?nondepressed mildly displaced fracture of the lateral tibial plateau, comminuted fracture of the medial femoral condyle posteriorly partially visualized, and a suspected fracture of the lateral femoral condyle posteriorly. Patient admitted for ground level fall resulting in a Left pathological admitted fracture of the medial condyle, left lateral tibial plateau fracture, and hypertensive urgency. Patient History Medical History (Updated 01/09/22 @ 03:56 by ZOFIA Nelson-CELINE) CHF (congestive heart failure) COPD (chronic obstructive pulmonary disease) Depression Dyspnea on exertion Essential hypertension Fibromyalgia GERD (gastroesophageal reflux disease) History of DVT (deep vein thrombosis) History of suicide attempt Hyperlipidemia Lymphedema of both lower extremities On home oxygen therapy Osteoarthritis Family & Social History Family History Daughter Heart attack Safety & Behavioral: Feels Safe in Current Yes Patient has in home healthcare worker 2 hours a day. Uses a walker. Environment Been Physically Hurt or No Threatened By a Person Tobacco & Substance use: Smoking Status Former smoker-quit 2013 alcohol intake current alcohol intake frequency 0-2 drinks per day Substance Use Type does not use Meds Home Medications and Allergies Home Medications Medication Instructions Recorded Confirmed Type amlodipine 10 mg tablet 10 mg PO DAILY 01/24/19 01/09/22 History aripiprazole 10 mg tablet 5 mg PO DAILY 01/24/19 01/09/22 History calcium carbonate 500 mg-vitamin 1 tab PO BID 01/24/19 01/09/22 History D3 3.125 mcg (125 unit) tablet (Calcium) carboxymethylcellulose sodium 0.5 2 drp EYE-BOTH QID PRN Dry Eyes 01/24/19 01/09/22 History % eye drops citalopram 10 mg tablet 15 mg PO DAILY 01/24/19 01/09/22 History dicyclomine 20 mg tablet 20 mg PO TID PRN Cramps 01/24/19 01/09/22 History doxepin 10 mg capsule 30 mg PO BEDTIME 01/24/19 01/09/22 History epinephrine 0.3 mg/0.3 mL 0.3 mg IM PRN PRN Allergic Reaction 01/24/19 01/09/22 History injection, auto-injector furosemide 20 mg tablet 20 mg PO DAILY 01/24/19 01/09/22 History garlic 1 cap PO DAILY 01/24/19 01/09/22 History ipratropium 20 mcg-albuterol 100 1 puff inhalation QID 01/24/19 01/09/22 History mcg/actuation mist for inhalation loratadine 10 mg tablet 10 mg PO DAILY 01/24/19 01/09/22 History metoprolol tartrate 50 mg tablet 50 mg PO DAILY 01/24/19 01/09/22 History miconazole nitrate 2 % topical 1 applic topical BID 01/24/19 01/09/22 History cream multivitamin with minerals 1 cap PO DAILY 01/24/19 01/09/22 History nitroglycerin 0.4 mg sublingual 0.4 mg sublingual Q5-15M PRN Chest 01/24/19 01/09/22 History tablet Pain pantoprazole 40 mg tablet,delayed 40 mg PO DAILY 01/24/19 01/09/22 History release vitamin B complex 1 cap PO DAILY 01/24/19 01/09/22 History spironolactone 12.5 mg PO DAILY 01/09/22 01/09/22 History Allergies Allergy/AdvReac Type Severity Reaction Status Date / Time acetaminophen [From Vicodin] Allergy Unknown Verified 01/24/19 12:17 alcohol Allergy Unknown Verified 01/24/19 12:17 ammonia Allergy Unknown Verified 01/24/19 12:17 aspirin Allergy Unknown Verified 01/24/19 12:17 azithromycin Allergy Unknown Verified 01/24/19 12:17 baclofen Allergy Unknown Verified 01/24/19 12:17 buspirone Allergy Unknown Verified 01/24/19 12:17 caffeine Allergy Unknown Verified 01/24/19 12:17 cetirizine Allergy Unknown Verified 01/24/19 12:17 choline salicylate Allergy Unknown Verified 01/24/19 12:17 [From Trilisate] citalopram Allergy Unknown Verified 01/24/19 12:17 codeine Allergy Unknown Verified 01/24/19 12:17 cortisone Allergy Unknown Verified 01/24/19 12:17 cycloserine [From Seromycin] Allergy Unknown Verified 01/24/19 12:17 cyproheptadine Allergy Unknown Verified 01/24/19 12:17 divalproex sodium Allergy Unknown Verified 01/24/19 12:17 erythromycin base Allergy Unknown Verified 01/24/19 12:17 fentanyl [From Duragesic] Allergy Unknown Verified 01/24/19 12:17 fluoxetine Allergy Unknown Verified 01/24/19 12:17 fluticasone Allergy Unknown Verified 01/24/19 12:17 fluvoxamine Allergy Unknown Verified 01/24/19 12:17 gabapentin Allergy Unknown Verified 01/24/19 12:17 garlic Allergy Unknown Verified 01/24/19 12:17 guaifenesin Allergy Unknown Verified 01/24/19 12:17 hornet venom Allergy Unknown Verified 01/24/19 12:17 hydralazine Allergy Unknown Verified 01/24/19 12:17 hydrochlorothiazide Allergy Unknown Verified 01/24/19 12:17 hydrocodone [From Vicodin] Allergy Unknown Verified 01/24/19 12:17 iodine Allergy Unknown Verified 01/24/19 12:17 ipecac Allergy Unknown Verified 01/24/19 12:17 ketorolac [From Toradol] Allergy Unknown Verified 01/24/19 12:17 lansoprazole Allergy Unknown Verified 01/24/19 12:17 levothyroxine Allergy Unknown Verified 01/24/19 12:17 lidocaine Allergy Unknown Verified 01/24/19 12:17 loperamide Allergy Unknown Verified 01/24/19 12:17 magnesium citrate Allergy Unknown Verified 01/24/19 12:17 magnesium salicylate Allergy Unknown Verified 01/24/19 12:17 [From Trilisate] methadone Allergy Unknown Verified 01/24/19 12:17 methocarbamol Allergy Unknown Verified 01/24/19 12:17 midazolam Allergy Unknown Verified 01/24/19 12:17 mirtazapine Allergy Unknown Verified 01/24/19 12:17 morphine Allergy Unknown Verified 01/24/19 12:17 nefazodone Allergy Unknown Verified 01/24/19 12:17 nimodipine Allergy Unknown Verified 01/24/19 12:17 nortriptyline Allergy Unknown Verified 01/24/19 12:17 omeprazole Allergy Unknown Verified 01/24/19 12:17 oxycodone [From Percodan] Allergy Unknown Verified 01/24/19 12:17 oxytocin Allergy Unknown Verified 01/24/19 12:17 paroxetine Allergy Unknown Verified 01/24/19 12:17 Penicillins Allergy Unknown Verified 01/24/19 12:17 phenytoin Allergy Unknown Verified 01/24/19 12:17 promethazine Allergy Unknown Verified 01/24/19 12:17 propofol Allergy Unknown Verified 01/24/19 12:17 pseudoephedrine Allergy Unknown Verified 01/24/19 12:17 psyllium Allergy Unknown Verified 01/24/19 12:17 pyridostigmine Allergy Unknown Verified 01/24/19 12:17 [From Mestinon] quetiapine Allergy Unknown Verified 01/24/19 12:17 rabeprazole Allergy Unknown Verified 01/24/19 12:17 ranitidine Allergy Unknown Verified 01/24/19 12:17 risperidone Allergy Unknown Verified 01/24/19 12:17 sertraline Allergy Unknown Verified 01/24/19 12:17 sodium phosphate Allergy Unknown Verified 01/24/19 12:17 [From Fleet Enema] sucralose Allergy Unknown Verified 01/24/19 12:17 sulfur dioxide Allergy Unknown Verified 01/24/19 12:17 sumatriptan Allergy Unknown Verified 01/24/19 12:17 temazepam Allergy Unknown Verified 01/24/19 12:17 tetracycline Allergy Unknown Verified 01/24/19 12:17 trazodone Allergy Unknown Verified 01/24/19 12:17 venlafaxine Allergy Unknown Verified 01/24/19 12:17 zolpidem Allergy Unknown Verified 01/24/19 12:17 beans Allergy Unknown Uncoded 01/24/19 12:17 chlorine bleach Allergy Unknown Uncoded 01/24/19 12:17 jalapeno peppers Allergy Unknown Uncoded 01/24/19 12:17 paper tape Allergy Unknown Uncoded 01/24/19 12:17 plastics Allergy Unknown Uncoded 01/24/19 12:17 suntan lotions Allergy Unknown Uncoded 01/24/19 12:17 surgical tape Allergy Unknown Uncoded 01/24/19 12:17 Review of Systems Review of Systems Narrative: All 12 point systems reviewed with the patient and are negative except otherwise documented. Exam Vital Signs (past 8 hours): - 01/08/22 19:23 01/08/22 19:23 01/08/22 19:30 Temperature 98.4 F Pulse Rate 78 78 79 Respiratory Rate 16 Blood Pressure 227/87 H Pulse Oximetry 97 97 96 Oxygen Delivery Method Room Air Oxygen Flow Rate 3 01/08/22 20:00 01/08/22 20:30 01/08/22 21:00 Temperature Pulse Rate 77 74 76 Respiratory Rate Blood Pressure Pulse Oximetry 97 95 91 Oxygen Delivery Method Nasal Cannula Nasal Cannula Nasal Cannula Oxygen Flow Rate 3 3 3 01/08/22 21:11 01/08/22 21:11 01/08/22 21:30 Temperature Pulse Rate 74 75 Respiratory Rate Blood Pressure 187/82 H Pulse Oximetry 96 97 Oxygen Delivery Method Nasal Cannula Nasal Cannula Oxygen Flow Rate 3 3 01/08/22 21:58 01/08/22 21:58 01/08/22 22:00 Temperature Pulse Rate 75 72 Respiratory Rate Blood Pressure 216/116 H Pulse Oximetry 97 96 Oxygen Delivery Method Nasal Cannula Oxygen Flow Rate 3 01/08/22 22:30 01/08/22 23:00 01/08/22 23:01 Temperature Pulse Rate 72 66 67 Respiratory Rate Blood Pressure Pulse Oximetry 96 95 96 Oxygen Delivery Method Nasal Cannula Nasal Cannula Nasal Cannula Oxygen Flow Rate 3 3 3 01/08/22 23:01 01/08/22 23:30 01/08/22 23:36 Temperature Pulse Rate 69 70 Respiratory Rate Blood Pressure 224/93 H Pulse Oximetry 97 98 Oxygen Delivery Method Oxygen Flow Rate 01/08/22 23:36 01/09/22 00:00 01/09/22 00:30 Temperature Pulse Rate 74 75 Respiratory Rate Blood Pressure 217/93 H Pulse Oximetry 97 97 Oxygen Delivery Method Oxygen Flow Rate 01/09/22 00:52 01/09/22 00:52 01/09/22 00:53 Temperature Pulse Rate 73 Respiratory Rate Blood Pressure 118/75 195/74 H Pulse Oximetry 96 Oxygen Delivery Method Oxygen Flow Rate 01/09/22 00:53 01/09/22 01:00 Temperature Pulse Rate 74 72 Respiratory Rate Blood Pressure Pulse Oximetry 96 95 Oxygen Delivery Method Oxygen Flow Rate Oxygen Delivery Method Nasal Cannula Oxygen Flow Rate 3 Narrative Exam Narrative: General: Patient is a well-developed, morbidly obese female, in no acute distress at this time. HEENT: Normocephalic, atraumatic, extraocular muscles intact, oral pharynx is clear and mucous membranes are moist. Neck is supple and symmetric, trachea is midline, no adenopathy, no thyroid enlargement, nontender, no masses palpated. Negative for JVD Chest: no nasal flaring, retractions, or tachypneic labored breathing. Lungs: Auscultation of all lung soliz are clear without adventitious sounds, wheezes, rhonchi, or rales. Cardio: S1 & S2 with regular rate and rhythm without murmur, rubs, or gallops, no carotid bruit, no cardiac pulsations present. Abdomen: Soft nontender, negative for organomegaly, or masses. Bowel sounds are present in all 4 quadrants without guarding or rebound, no CVA tenderness. Musculoskeletal: Left lower extremity:Significant pain on palpation of left knee with ecchymosis of left anterior high, pain along bony prominences without obvious ligamentous instability, laterally rotated, pain with light touch. Right ankle deformity from old poorly healed fracture, Extremities no crepitus, effusions, cyanosis, clubbing or edema present, intact radial and pedal pulses are normal. Skin: Warm dry and intact without rashes or petechiae. Noted skin breakdown in the groin. Neuro: Alert and orientated x3, though patient is a poor historian, slowed cognitive processing sensation to touch intact, no gross deficits noted of cranial nerves. Psych: Patient has a well-kept appearance, appropriate affect, mental status attitude thought context are appropriate for age. Objective Labs Result Diagrams: 01/08/22 19:59 01/08/22 19:59 Labs: Laboratory Results - last 24 hr 01/08/22 01/08/22 01/08/22 19:59 19:59 21:10 WBC 7.7 RBC 3.60 L Hgb 11.0 L Hct 33.4 L MCV 92.8 MCH 30.5 MCHC 32.9 RDW 15.6 H Plt Count 300 Neut % (Auto) 72.2 Lymph % (Auto) 16.5 L [place] % (Auto) 9.4 Eos % (Auto) 1.4 L Baso % (Auto) 0.5 Neut # (Auto) 5600 Lymph # (Auto) 1300 [place] # (Auto) 700 Eos # (Auto) 100 Baso # (Auto) 0 Sodium 137 Potassium 4.5 Chloride 99 Carbon Dioxide 33 H BUN 14 Creatinine 0.99 Estimated GFR 58 L BUN/Creatinine Ratio 14.1 Glucose 111 H Calcium 9.0 Magnesium 2.0 Total Bilirubin 0.8 AST 33 ALT 24 Alkaline Phosphatase 69 Total Creatine Kinase 41 CK-MB (CK-2) TNP CK-MB (CK-2) Rel Index TNP Troponin I 0.034 NT-Pro-B Natriuret Pep 1350 H Total Protein 7.6 Albumin 4.0 Globulin 3.6 Albumin/Globulin Ratio 1.1 SARS-CoV-2 (PCR) Negative Assessment & Plan Assessment & Plan narrative: Galina Roque is a 77-year-old female with a history of COPD on home oxygen, cardiac murmur, dyspnea on exertion, CHF, hypertension, mobid obesity, impaired mobility-uses a walker, depression, GERD, osteoarthritis, hyperlipidemia, and bilateral lower extremity lymphedema who presented to [facility] ED with complaints of severe worsening lower extremity pain inability to weight bear, and ambulate. Patient experienced a ground level fall on 01/07/2002 who has suffered a left commuted fracture of the medial femoral condyle and lateral tibial plateau fracture. Dr. Christine orthopedics consulted on the case and reviewed the imaging the patient is to be non-weightbearing and requires a knee immobilize, larger than available in house. The patient required admit due to the patient's morbid obesity, impaired mobility, and inadequate in home support care. Orthopedics to consult. Patient will require transfer to SNF/Rehab. 1. Ground level fall, resulting in a pathologic?Left nondepressed mildly displaced fracture of the lateral tibial plateau, comminuted fracture of the medial femoral condyle posteriorly, acute, present on admission -patient on bed rest nonweightbearing -Dr. Christine orthopedic consult ordered -pain management, ice, knee immobilizer(we do not have a large enough a mobilizer in house, will need to obtain LR Toshia of size immobilizer) -Offered rangel placement due to both risk for skin breakdown with prolonged bed rest coupled with morbid obesity and inability to weightbear. -Monitor for skin breakdown -Consult Board Machine Set Up Operator regarding SNF placement evaluation. -repeat H&H in am 2. Hypertensive urgency in the setting of essential hypertension, acute on chronic, present on admission, uncontrolled -B/P in ED 224/93, upon admit 195/74-patient is stable and asymptomatic -continue amlodipine, metoprolol -heart healthy diet, low-sodium -troponin#1 0.034, will trend x3. 3. COPD, with dyspnea on exertion, requiring continuous home oxygenation, acute on chronic, present on admission -patient's O2 saturation 95%/3L NC -respiratory consult -continue inhaler 4. Congestive heart failure, chronic, present on admission -Echo 2019 Dr Crowley (EF 60-65%) mild to moderate mitral regurgitation.-I revi ewed Dr. Allred murmurs Cardiology notes and diagnostic. -2000 mL fluid restriction -BNP 1350 -continue Lasix 5. Hyperlipidemia, chronic, present on admission -continue simvastatin 6. Bilateral lower extremity lymphedema, chronic, present on admission -continue Lasix, fluid restriction, low-sodium diet 7. Depression, chronic, present on admission -continue patient's Abilify citalopram and doxepin 8. GERD, chronic, present on admission -continue Protonix 9. Morbid obesity as evidence by BMI 53, acute on chronic, present on admission -patient's morbid obesity and impaired mobility will impair patient is healing from fracture, put her at risk for skin infections and breakdown. -dietary consult placed for nutritional consult. Code status: Patient consents to cardiac resuscitation but declines intubation DNI Surrogate decision maker: Niyah CANCINO PCR: Negative DVT/VTE prophylaxis: Lovenox 40 mg, SCD on right Disposition: Patient full admit, expected length of stay greater than 2 midnights. I have utilized all available immediate resources to obtain, update, or review t he patient's current medications. I confirmed that the patient's advanced care plan is present, Code status is documented and/or surrogate decision maker is listed in the patient's medical record. Time Spent With Patient Critical Care time: I spent a total of [] minutes of critical care time on this patient's care today; this time is exclusive of procedural time.
[2022-01-09 02:23] LABS: Troponin I 0.039 ng/mL (0.01-0.034)
[2022-01-09 02:42] LABS: Thyroid Stimulating Hormone 3.17 uIU/mL (0.47-4.68)
[2022-01-09 06:32] LABS: Hematocrit 32.4 % (36-46); Hemoglobin 10.7 g/dL (12.0-16.0)
[2022-01-09] MEDS: ENOXAPARIN 40 MG/0.4 ML SYRINGE SUBCUT ×2 (08:44→20:47)
[2022-01-09] MEDS: ARIPiprazole 10 MG TABLET 5 MG PO (08:45)
[2022-01-09] MEDS: FUROSEMIDE 20 MG TABLET PO (08:46)
[2022-01-09] MEDS: CITALOPRAM 10 MG TABLET 15 MG PO (08:46)
[2022-01-09] MEDS: PANTOPRAZOLE DR 40 MG TABLET PO ×2 (08:46→20:47)
[2022-01-09] MEDS: METOPROLOL IR 50 MG TABLET PO ×2 (08:46→20:48)
[2022-01-09] MEDS: AMLODIPINE 5 MG TABLET 10 MG PO (08:47)
--- NOTE | 2022-01-09 09:26 | PM.DS.1 ---
History of Present Illness History of Present Illness Date Patient Seen: 01/09/22 Time Patient Seen: 09:00 Date of Onset of Symptoms: 01/08/22 Chief complaint: L knee pain. fall yesterday Narrative: Patient is a 77-year-old woman who slipped in a puddle of urine and fell, hitting her head on the door on the way down. She had significant left leg pain after the fall. She reports she screamed for help and eventually was taken to the emergency room for evaluation. Radiographs and a CT scan were obtained and orthopedic consultation has been obtained for treatment of the fractures found of her left femur and left proximal tibia. She denies back pain. She does have some mild numbness in the left lower extremity. Discharge Providers Provider Date of admission: 01/09/22 00:22 Consults: 01/09/22 01:17 Consult to Physician Routine Comment: Consulting Provider: Kuldeep Christine Reason for consultation: Femoral & tibial plateau fx Has provider been notified: Yes 01/09/22 01:39 Consult to [employer] Routine Comment: will need SNF placement/rehab 01/09/22 05:04 Consult to Dietitian, Adult Routine Comment: Reason For Exam: BMI 53 Discharge provider: Kuldeep Christine MD Exam Vital Signs (past 8 hours): - 01/09/22 02:10 01/09/22 06:00 Temperature 98.0 F 98.5 F Pulse Rate 61 69 Respiratory Rate 20 18 Blood Pressure 135/75 Pulse Oximetry 94 96 Oxygen Flow Rate 4 4 Oxygen Delivery Method Nasal Cannula Oxygen Flow Rate 4 Objective Labs Result Diagrams: 01/09/22 06:15 01/08/22 19:59 Labs: Laboratory Results - last 24 hr 01/08/22 01/08/22 01/08/22 19:59 19:59 21:10 WBC 7.7 RBC 3.60 L Hgb 11.0 L Hct 33.4 L MCV 92.8 MCH 30.5 MCHC 32.9 RDW 15.6 H Plt Count 300 Neut % (Auto) 72.2 Lymph % (Auto) 16.5 L [place] % (Auto) 9.4 Eos % (Auto) 1.4 L Baso % (Auto) 0.5 Neut # (Auto) 5600 Lymph # (Auto) 1300 [place] # (Auto) 700 Eos # (Auto) 100 Baso # (Auto) 0 Sodium 137 Potassium 4.5 Chloride 99 Carbon Dioxide 33 H BUN 14 Creatinine 0.99 Estimated GFR 58 L BUN/Creatinine Ratio 14.1 Glucose 111 H Calcium 9.0 Magnesium 2.0 Total Bilirubin 0.8 AST 33 ALT 24 Alkaline Phosphatase 69 Total Creatine Kinase 41 CK-MB (CK-2) TNP CK-MB (CK-2) Rel Index TNP Troponin I 0.034 NT-Pro-B Natriuret Pep 1350 H Total Protein 7.6 Albumin 4.0 Globulin 3.6 Albumin/Globulin Ratio 1.1 TSH SARS-CoV-2 (PCR) Negative 01/09/22 01/09/22 01/09/22 01:50 01:50 06:15 WBC RBC Hgb Hct MCV MCH MCHC RDW Plt Count Neut % (Auto) Lymph % (Auto) [place] % (Auto) Eos % (Auto) Baso % (Auto) Neut # (Auto) Lymph # (Auto) [place] # (Auto) Eos # (Auto) Baso # (Auto) Sodium Potassium Chloride Carbon Dioxide BUN Creatinine Estimated GFR BUN/Creatinine Ratio Glucose Calcium Magnesium Total Bilirubin AST ALT Alkaline Phosphatase Total Creatine Kinase CK-MB (CK-2) CK-MB (CK-2) Rel Index Troponin I 0.039 H 0.030 NT-Pro-B Natriuret Pep Total Protein Albumin Globulin Albumin/Globulin Ratio TSH 3.17 SARS-CoV-2 (PCR) 01/09/22 06:15 WBC RBC Hgb 10.7 L Hct 32.4 L MCV MCH MCHC RDW Plt Count Neut % (Auto) Lymph % (Auto) [place] % (Auto) Eos % (Auto) Baso % (Auto) Neut # (Auto) Lymph # (Auto) [place] # (Auto) Eos # (Auto) Baso # (Auto) Sodium Potassium Chloride Carbon Dioxide BUN Creatinine Estimated GFR BUN/Creatinine Ratio Glucose Calcium Magnesium Total Bilirubin AST ALT Alkaline Phosphatase Total Creatine Kinase CK-MB (CK-2) CK-MB (CK-2) Rel Index Troponin I NT-Pro-B Natriuret Pep Total Protein Albumin Globulin Albumin/Globulin Ratio TSH SARS-CoV-2 (PCR) [facility] Medical History (Updated 01/09/22 @ 03:56 by BRENDA Nelson) CHF (congestive heart failure) COPD (chronic obstructive pulmonary disease) Depression Dyspnea on exertion Essential hypertension Fibromyalgia GERD (gastroesophageal reflux disease) History of DVT (deep vein thrombosis) History of suicide attempt Hyperlipidemia Lymphedema of both lower extremities On home oxygen therapy Osteoarthritis Family History Daughter Heart attack Social History household members: caregiver Smoking Status: Former smoker alcohol intake: current substance use type: does not use Discharge Plan Discharge orders & Medications Prescriptions: No Action citalopram 10 mg Tablet 15 mg PO DAILY dicyclomine 20 mg Tablet 20 mg PO TID PRN (Reason: Cramps) carboxymethylcellulose sodium 0.5 % Drops 2 drp EYE-BOTH QID PRN (Reason: Dry Eyes) amlodipine 10 mg Tablet 10 mg PO DAILY aripiprazole 10 mg Tablet 5 mg PO DAILY calcium carbonate-vitamin D3 [Calcium 500 + D (D3)] 500 mg(1,250mg) -125 unit Tablet 1 tab PO BID ipratropium-albuterol 20-100 mcg/actuation Mist 1 puff inhalation QID garlic 1 cap PO DAILY miconazole nitrate 2 % Cream 1 applic TOPICAL BID doxepin 10 mg Capsule 30 mg PO BEDTIME pantoprazole 40 mg Tablet,Delayed Release (Dr/Ec) 40 mg PO DAILY metoprolol tartrate 50 mg Tablet 50 mg PO DAILY nitroglycerin 0.4 mg Tablet, Sublingual 0.4 mg SUBLINGUAL Q5-15M PRN (Reason: Chest Pain) furosemide 20 mg Tablet 20 mg PO DAILY epinephrine 0.3 mg/0.3 mL Auto-Injector 0.3 mg IM PRN PRN (Reason: Allergic Reaction) loratadine 10 mg Tablet 10 mg PO DAILY vitamin B complex Capsule 1 cap PO DAILY multivitamin with minerals Capsule 1 cap PO DAILY spironolactone 12.5 mg PO DAILY
--- NOTE | 2022-01-09 09:28 | P.CONS_ITS ---
History of Present Illness Consult details Date Patient Seen: 01/09/22 Time Patient Seen: 09:00 Chief complaint: L knee pain. fall yesterday Reason for consult: Left distal femoral and proximal tibial fractures Requesting provider: Barrington Oliveira Narrative: The patient is a 77-year-old morbidly obese woman who slipped in a puddle of urine and fell, hitting her head on a door on the way down. She screamed for help after she was unable to arise due to left leg pain. Eventually she was taken to [facility] Emergency Room for evaluation and radiographs and CT scans revealed a left distal femoral fracture and left proximal tibial fracture. Orthopedic consultation has been obtained to address the fractures. Meds Home Medications and Allergies Home Medications Medication Instructions Recorded Confirmed Type amlodipine 10 mg tablet 10 mg PO DAILY 01/24/19 01/09/22 History aripiprazole 10 mg tablet 5 mg PO DAILY 01/24/19 01/09/22 History calcium carbonate 500 mg-vitamin 1 tab PO BID 01/24/19 01/09/22 History D3 3.125 mcg (125 unit) tablet (Calcium) carboxymethylcellulose sodium 0.5 2 drp EYE-BOTH QID PRN Dry Eyes 01/24/19 01/09/22 History % eye drops citalopram 10 mg tablet 15 mg PO DAILY 01/24/19 01/09/22 History dicyclomine 20 mg tablet 20 mg PO TID PRN Cramps 01/24/19 01/09/22 History doxepin 10 mg capsule 30 mg PO BEDTIME 01/24/19 01/09/22 History epinephrine 0.3 mg/0.3 mL 0.3 mg IM PRN PRN Allergic Reaction 01/24/19 01/09/22 History injection, auto-injector furosemide 20 mg tablet 20 mg PO DAILY 01/24/19 01/09/22 History garlic 1 cap PO DAILY 01/24/19 01/09/22 History ipratropium 20 mcg-albuterol 100 1 puff inhalation QID 01/24/19 01/09/22 History mcg/actuation mist for inhalation loratadine 10 mg tablet 10 mg PO DAILY 01/24/19 01/09/22 History metoprolol tartrate 50 mg tablet 50 mg PO DAILY 01/24/19 01/09/22 History miconazole nitrate 2 % topical 1 applic topical BID 01/24/19 01/09/22 History cream multivitamin with minerals 1 cap PO DAILY 01/24/19 01/09/22 History nitroglycerin 0.4 mg sublingual 0.4 mg sublingual Q5-15M PRN Chest 01/24/19 01/09/22 History tablet Pain pantoprazole 40 mg tablet,delayed 40 mg PO DAILY 01/24/19 01/09/22 History release vitamin B complex 1 cap PO DAILY 01/24/19 01/09/22 History spironolactone 12.5 mg PO DAILY 01/09/22 01/09/22 History Allergies Allergy/AdvReac Type Severity Reaction Status Date / Time acetaminophen [From Vicodin] Allergy Unknown Verified 01/24/19 12:17 alcohol Allergy Unknown Verified 01/24/19 12:17 ammonia Allergy Unknown Verified 01/24/19 12:17 aspirin Allergy Unknown Verified 01/24/19 12:17 azithromycin Allergy Unknown Verified 01/24/19 12:17 baclofen Allergy Unknown Verified 01/24/19 12:17 buspirone Allergy Unknown Verified 01/24/19 12:17 caffeine Allergy Unknown Verified 01/24/19 12:17 cetirizine Allergy Unknown Verified 01/24/19 12:17 choline salicylate Allergy Unknown Verified 01/24/19 12:17 [From Trilisate] citalopram Allergy Unknown Verified 01/24/19 12:17 codeine Allergy Unknown Verified 01/24/19 12:17 cortisone Allergy Unknown Verified 01/24/19 12:17 cycloserine [From Seromycin] Allergy Unknown Verified 01/24/19 12:17 cyproheptadine Allergy Unknown Verified 01/24/19 12:17 divalproex sodium Allergy Unknown Verified 01/24/19 12:17 erythromycin base Allergy Unknown Verified 01/24/19 12:17 fentanyl [From Duragesic] Allergy Unknown Verified 01/24/19 12:17 fluoxetine Allergy Unknown Verified 01/24/19 12:17 fluticasone Allergy Unknown Verified 01/24/19 12:17 fluvoxamine Allergy Unknown Verified 01/24/19 12:17 gabapentin Allergy Unknown Verified 01/24/19 12:17 garlic Allergy Unknown Verified 01/24/19 12:17 guaifenesin Allergy Unknown Verified 01/24/19 12:17 hornet venom Allergy Unknown Verified 01/24/19 12:17 hydralazine Allergy Unknown Verified 01/24/19 12:17 hydrochlorothiazide Allergy Unknown Verified 01/24/19 12:17 hydrocodone [From Vicodin] Allergy Unknown Verified 01/24/19 12:17 iodine Allergy Unknown Verified 01/24/19 12:17 ipecac Allergy Unknown Verified 01/24/19 12:17 ketorolac [From Toradol] Allergy Unknown Verified 01/24/19 12:17 lansoprazole Allergy Unknown Verified 01/24/19 12:17 levothyroxine Allergy Unknown Verified 01/24/19 12:17 lidocaine Allergy Unknown Verified 01/24/19 12:17 loperamide Allergy Unknown Verified 01/24/19 12:17 magnesium citrate Allergy Unknown Verified 01/24/19 12:17 magnesium salicylate Allergy Unknown Verified 01/24/19 12:17 [From Trilisate] methadone Allergy Unknown Verified 01/24/19 12:17 methocarbamol Allergy Unknown Verified 01/24/19 12:17 midazolam Allergy Unknown Verified 01/24/19 12:17 mirtazapine Allergy Unknown Verified 01/24/19 12:17 morphine Allergy Unknown Verified 01/24/19 12:17 nefazodone Allergy Unknown Verified 01/24/19 12:17 nimodipine Allergy Unknown Verified 01/24/19 12:17 nortriptyline Allergy Unknown Verified 01/24/19 12:17 omeprazole Allergy Unknown Verified 01/24/19 12:17 oxycodone [From Percodan] Allergy Unknown Verified 01/24/19 12:17 oxytocin Allergy Unknown Verified 01/24/19 12:17 paroxetine Allergy Unknown Verified 01/24/19 12:17 Penicillins Allergy Unknown Verified 01/24/19 12:17 phenytoin Allergy Unknown Verified 01/24/19 12:17 promethazine Allergy Unknown Verified 01/24/19 12:17 propofol Allergy Unknown Verified 01/24/19 12:17 pseudoephedrine Allergy Unknown Verified 01/24/19 12:17 psyllium Allergy Unknown Verified 01/24/19 12:17 pyridostigmine Allergy Unknown Verified 01/24/19 12:17 [From Mestinon] quetiapine Allergy Unknown Verified 01/24/19 12:17 rabeprazole Allergy Unknown Verified 01/24/19 12:17 ranitidine Allergy Unknown Verified 01/24/19 12:17 risperidone Allergy Unknown Verified 01/24/19 12:17 sertraline Allergy Unknown Verified 01/24/19 12:17 sodium phosphate Allergy Unknown Verified 01/24/19 12:17 [From Fleet Enema] sucralose Allergy Unknown Verified 01/24/19 12:17 sulfur dioxide Allergy Unknown Verified 01/24/19 12:17 sumatriptan Allergy Unknown Verified 01/24/19 12:17 temazepam Allergy Unknown Verified 01/24/19 12:17 tetracycline Allergy Unknown Verified 01/24/19 12:17 trazodone Allergy Unknown Verified 01/24/19 12:17 venlafaxine Allergy Unknown Verified 01/24/19 12:17 zolpidem Allergy Unknown Verified 01/24/19 12:17 beans Allergy Unknown Uncoded 01/24/19 12:17 chlorine bleach Allergy Unknown Uncoded 01/24/19 12:17 jalapeno peppers Allergy Unknown Uncoded 01/24/19 12:17 paper tape Allergy Unknown Uncoded 01/24/19 12:17 plastics Allergy Unknown Uncoded 01/24/19 12:17 suntan lotions Allergy Unknown Uncoded 01/24/19 12:17 surgical tape Allergy Unknown Uncoded 01/24/19 12:17 Review of Systems Review of Systems Narrative: The patient reports she has no back pain prior to the fall and none now. She denies previous numbness in the extremities. Exam Vital Signs (past 8 hours): - 01/09/22 02:10 01/09/22 06:00 Temperature 98.0 F 98.5 F Pulse Rate 61 69 Respiratory Rate 20 18 Blood Pressure 135/75 Pulse Oximetry 94 96 Oxygen Flow Rate 4 4 Oxygen Delivery Method Nasal Cannula Oxygen Flow Rate 4 Narrative Exam Narrative: Patient is examined while lying comfortably in her hospital bed. There are no major deformities of her extremities. She is tender to palpation over the medial distal femur and over the lateral proximal tibia. Knee range of motion is deferred due to the known fractures. Body habitus does not allow assessment for an effusion. Calf is soft. Light touch is intact object of leave but subjectively notable for numbness throughout the left foot. She has 5-/5 strength in ankle and toe dorsiflexion and in foot plantar flexion, limited by pain. Objective Labs Result Diagrams: 01/09/22 06:15 01/08/22 19:59 Labs: Laboratory Results - last 24 hr 01/08/22 01/08/22 01/08/22 19:59 19:59 21:10 WBC 7.7 RBC 3.60 L Hgb 11.0 L Hct 33.4 L MCV 92.8 MCH 30.5 MCHC 32.9 RDW 15.6 H Plt Count 300 Neut % (Auto) 72.2 Lymph % (Auto) 16.5 L Latimer % (Auto) 9.4 Eos % (Auto) 1.4 L Baso % (Auto) 0.5 Neut # (Auto) 5600 Lymph # (Auto) 1300 Latimer # (Auto) 700 Eos # (Auto) 100 Baso # (Auto) 0 Sodium 137 Potassium 4.5 Chloride 99 Carbon Dioxide 33 H BUN 14 Creatinine 0.99 Estimated GFR 58 L BUN/Creatinine Ratio 14.1 Glucose 111 H Calcium 9.0 Magnesium 2.0 Total Bilirubin 0.8 AST 33 ALT 24 Alkaline Phosphatase 69 Total Creatine Kinase 41 CK-MB (CK-2) TNP CK-MB (CK-2) Rel Index TNP Troponin I 0.034 NT-Pro-B Natriuret Pep 1350 H Total Protein 7.6 Albumin 4.0 Globulin 3.6 Albumin/Globulin Ratio 1.1 TSH SARS-CoV-2 (PCR) Negative 01/09/22 01/09/22 01/09/22 01:50 01:50 06:15 WBC RBC Hgb Hct MCV MCH MCHC RDW Plt Count Neut % (Auto) Lymph % (Auto) Latimer % (Auto) Eos % (Auto) Baso % (Auto) Neut # (Auto) Lymph # (Auto) Latimer # (Auto) Eos # (Auto) Baso # (Auto) Sodium Potassium Chloride Carbon Dioxide BUN Creatinine Estimated GFR BUN/Creatinine Ratio Glucose Calcium Magnesium Total Bilirubin AST ALT Alkaline Phosphatase Total Creatine Kinase CK-MB (CK-2) CK-MB (CK-2) Rel Index Troponin I 0.039 H 0.030 NT-Pro-B Natriuret Pep Total Protein Albumin Globulin Albumin/Globulin Ratio TSH 3.17 SARS-CoV-2 (PCR) 01/09/22 06:15 WBC RBC Hgb 10.7 L Hct 32.4 L MCV MCH MCHC RDW Plt Count Neut % (Auto) Lymph % (Auto) Latimer % (Auto) Eos % (Auto) Baso % (Auto) Neut # (Auto) Lymph # (Auto) Latimer # (Auto) Eos # (Auto) Baso # (Auto) Sodium Potassium Chloride Carbon Dioxide BUN Creatinine Estimated GFR BUN/Creatinine Ratio Glucose Calcium Magnesium Total Bilirubin AST ALT Alkaline Phosphatase Total Creatine Kinase CK-MB (CK-2) CK-MB (CK-2) Rel Index Troponin I NT-Pro-B Natriuret Pep Total Protein Albumin Globulin Albumin/Globulin Ratio TSH SARS-CoV-2 (PCR) Radiographic studies: Femur x-rays obtained in the emergency room are reviewed and independently interpreted, these show a minimally displaced fracture of the medial epicondyle of the left femur consistent with an avulsion of the medial collateral ligament. CT scan obtained on the orders of Dr. Oliveira is reviewed and independently interpreted today. There is the aforementioned minimally displaced fracture of the medial epicondyle of the left femur. There is also a minimally displaced compression fracture of the lateral tibial plateau. [facility] Medical History (Updated 01/09/22 @ 09:30 by Kuldeep Christine MD) CHF (congestive heart failure) COPD (chronic obstructive pulmonary disease) Depression Dyspnea on exertion Essential hypertension Fibromyalgia GERD (gastroesophageal reflux disease) History of DVT (deep vein thrombosis) History of fracture of right hip History of suicide attempt Hyperlipidemia Lymphedema of both lower extremities On home oxygen therapy Osteoarthritis Family History Daughter Heart attack Social History household members: caregiver Tobacco & Substance Use Smoking Status: Former smoker alcohol intake: current substance use type: does not use Assessment & Plan Assessment & Plan narrative: The patient is a marginally ambulatory morbidly obese 77-year-old woman with a previous history of a fall fracturing her right hip. She slipped and fell on a wet floor and probably sustained a significant valgus deformity to her knee with an avulsion of the medial collateral ligament and mild compression of the lateral tibial plateau. These fractures are minimally displaced and do not require surgery. She will require nonweightbearing status for approximately 6 weeks and then progressive return to full weight-bearing. She would also benefi t from a hinged knee brace to prevent additional valgus stress on the knee while the fractures heal. This does not need to be locked however she will be difficult to fit due to her body habitus and would best be served by an evaluation by a physician assistant certified for brace fitting. If a hinged knee brace cannot be obtained, a knee immobilizer could be substituted for the 1st 6 weeks. She will likely require shelter facility placement as she was marginally safe in her home environment prior to her recent injury. Time Spent With Patient Time with patient: 30 to 49 minutes with 50% spent counseling/coordinating care Critical Care time: I spent a total of [] minutes of critical care time on this patient's care today; this time is exclusive of procedural time.
--- NOTE | 2022-01-09 09:28 | CM.DANOTE ---
Addendum entered by Kinza PaulsonmanHERMANN 01/09/22 13:53: [facility]- declines accepting pt due to 6 weeks non weightbearing status and difficulty getting pt rehab covered under COVID waiver for that whole time and bariatric status. Addendum entered by Kinza TurpinHERMANN 01/09/22 11:42: ADD: Per Hospitalist, while completing bedside assessment pt confirms she has 25 hrs MEJIA CG a week and is agreeable to SNF and has Dtr who lives in [place] and pt has a Life Alert which she used after her fall. SW called following SNFs to attempt placement under COVID waiver for rehab: [facility]- left detailed msg and faxed referral [facility]- left detailed msg and faxed referral [facility]- willing to review to determine if skillable under COVID waiver, faxed referral [facility]- no longer taking COVID waiver pts [facility]- willing to review. PASRR completed in anticipation of SNF. Pt shows as [facility] COVID vax on [facility] website. BF Original Note: Patient is a 77 yo female who was admitted on 01/09/22 for GLF, knee pain. Pt has [facility] and [employer] for insurance and her PCP is not listed. EMR was reviewed. Per MD, pt with hx of COPD and home oxygen at baseline with CHF and osteoarthritis and admitted after GLF and inability to ambulate and admitted for femoral and tibial fx. Per Ortho MD, pt not appropriate for surgical intervention but specially made brace for her leg and will be non-weight bearing and require SNF at d/c for healing and rehab. SW met bedside with pt and explained role and pt alert and oriented but appears to be slower in her responses and states I feel a little tongue tied today and recall is slower. Pt confirms she lives in [facility] alone but states she has MEJIA CGs daily for about 2 hrs. Pt confirms she has been to SNF before for a few months after she broke her other leg and was trying to recall what SNF she went to when Hospitalist arrived bedside. Per RN, pt's specialty brace will need to be made by outside company that would arrive bedside and create specifically for pt but likely cannot happen until tomorrow or the next day. Per UR RN, pt likely OBS status as currently no surgical intervention needed but sending to EHR for final determination. Plan: SW to follow for further discussion with pt regarding likely OBS status and SNF referrals and to determine pt's MEJIA CM so that after today (holiday) then MEJIA can be alerted to pt's admission. HERMANN Suazo Discharge Planning/Care Management CM Discharge Assessment Start: 01/09/22 09:21 Freq: Status: Active Protocol: Document 01/09/22 09:22 BF (Rec: 01/09/22 09:28 BF [id number]) Discharge Planning Assessment Assigned Spreader Box Operator HERMANN Echols Advance Directives? No Advance Directives on File No History Provided By Patient,Medical Record Has Patient been admitted in last 30 No days? Prior Living Arrangements House Household Members none Comment Has CGs daily for about 2hrs a day Type of transporation used prior to Relies on Others admit Independent with ADL's Yes: somewhat Is patient alert and oriented? Yes: Somewhat, has some memory recall issues Needs Assistance With Meal Prep,Managing Medications ,Home Chores / Shopping Caregiver for Another No DME Already Rented / Owned FWW / Walker Barriers to Discharge Yes Comment OBS Status, non weight baring on fx leg Discharge Plan Long-Term Facility Transportation Arrangement facility van if SNF Referrals Initiated Long-Term If patient plan is SNF: Has PASSR been Yes completed? Medicare Choice List Provided Yes Has Agency SNF been contacted Yes Whiteboard Updated in Patient Room with Yes name and ext. # of Spreader Box Operator Review Status In Process Please Provide Date Initial DC 01/09/22 Assessment Was Performed Next Review Type Continued Stay Review
[2022-01-09] MEDS: OXYCODONE IR 10 MG TABLET PO (10:01)
[2022-01-09] MEDS: ALBUTEROL/IPRATROPIUM 3 ML AMPUL INH ×4 (10:12→20:15)
--- NOTE | 2022-01-09 10:38 | PT.IIE ---
Medical History (Last Updated 01/09/22 @ 09:30 by Kuldeep Christine MD) CHF (congestive heart failure) COPD (chronic obstructive pulmonary disease) Depression Dyspnea on exertion Essential hypertension Fibromyalgia GERD (gastroesophageal reflux disease) History of DVT (deep vein thrombosis) History of fracture of right hip History of suicide attempt Hyperlipidemia Lymphedema of both lower extremities On home oxygen therapy Osteoarthritis Physical Therapy Inpatient Evaluation/Re-Eval M1 PT/OT-IP Prior Functional Status Start: 01/09/22 13:10 Freq: NEEDED Status: Active Protocol: Document 01/09/22 10:38 AB (Rec: 01/09/22 13:36 AB [id number]) Medical Review Prior Functional Status Medical History Reviewed Yes Communication inconsistent with answering questions; requires increase time to answer and repetitions and unable to find words sometimes Mobility and Gait pt stated that she is modified independent with ambulation using 4WW; cannot answer if she is able to do bed mobility by herself; stated that she needs assistance with hygiene care and if the caregiver is not around, she will wait in the toilet until caregiver arrives. Social History Household Members none Living Arrangements Apartment/Condo Number of Floors (Floors) One Floor Number of Stairs To Enter/Railing? 1 step to enter Home Environment Standard Height Toilet,Tub/ Shower Home Equipment Four Wheel Walker,Raised Toilet Seat Without Armrests, Tub Transfer Bench,Lift Recliner,Mechanical Lift,Grab Bars In Shower Additional Social History Comment pt stated that she has 100 hours/month of caregiver hours ; caregiver comes in every day for ~ 3-4 hours pt stated that she has a hospital bed with bed rails M2 PT-IP Current Condition Start: 01/09/22 13:10 Freq: NEEDED Status: Active Protocol: Document 01/09/22 10:38 AB (Rec: 01/09/22 13:36 AB [id number]) Physical Therapy Current Condition Current Condition Evaluation Date 01/09/22 Treatment Diagnosis L tibial plateau fx; difficulty in walking Onset Date 01/09/22 M3 PT-IP Subjective Start: 01/09/22 13:10 Freq: NEEDED Status: Active Protocol: Document 01/09/22 10:38 AB (Rec: 01/09/22 13:36 AB [id number]) Subjective Physical Therapy Visit Type Type Initial Evaluation Visit Start Time 10:38 Visit Stop Time 12:41 Total Visit Minutes 99 Notes pt seen for split visits: 1038 am to 1106 am and 1130 to 1241 pm Number of DOUGH MIXER OPERATOR Visits 0 M4 PT-IP Mobility and Gait Start: 01/09/22 13:10 Freq: NEEDED Status: Active Protocol: Document 01/09/22 10:38 AB (Rec: 01/09/22 13:36 AB [email or web address]) PT-Bed Mobility Assessment Supine to Sit Supine to Sit Maximum Assistance,Total Assistance,2 Person Assistance ,Head of Bed Elevated,Bedrails Sit to Supine Sit to Supine Total Assistance,2 Person Assistance Scooting Scooting to Edge of Bed Dependent PT-Transfer Assessment Comments Mobility Comments pt with L tibial plateau fx and no surgical intervention. Ortho MD order for hinged brace and stated that brace does not have to be locked. Fitted and provided pt with hinged brace and pt signed papers. completed supine to sit with HOB elevated max A x 2 to total A x 2 and max cues. min A with sitting on EOB with increase posterior trunk lean. total A for scooting to EOB. educated pt on NWB on LLE and how to stand. attempted sit to stand x 4 attempts but pt unable to stand. Assisted pt back to bed total A x 4. positioned pt in bed total A x 4. call light and table placed within reach. PT-Balance Assessment Sitting Balance and Reactions Static Sitting Balance Ability Fair Dynamic Sitting Balance Ability Fair M5 PT-IP Objective Assessments Start: 01/09/22 13:10 Freq: NEEDED Status: Active Protocol: Document 01/09/22 10:38 AB (Rec: 01/09/22 13:36 AB [id number]) Orientation Orientation/Cognition Level of Alertness Confusional State Orientation Name,Place,Situation Language Function Ability Word Finding Difficulties,Hard of Hearing Safety Awareness Decreased Safety Awareness Memory Description Short Term Impaired Gross Range of Motion Lower Extremity ROM Assessment Bilaterally Impaired Impairments L knee not tested R knee limited with guarding; pt stated that she has arthritis and fibromyalgia B ankles are limited with DF Strength Lower Extremity Strength Assessment Bilaterally Impaired Comments Strength Comments RLE: 3-/5 LLE: 2/5 M6 PT-IP Treatment Start: 01/09/22 13:10 Freq: NEEDED Status: Active Protocol: Document 01/09/22 10:38 AB (Rec: 01/09/22 13:36 AB [id number]) Physical Therapy Treatment Education Education Provided Precautions,Weight Bearing Status,Safety Equipment Issued Equipment Type and Company pt provided with L knee hinged brace from [employer]. Talked with Francis from [employer] and stated that hinged brace will provide necessary prevention from valgus stress as per ortho doctor's instructions and will not need an certified real estate appraiser at this time as brace that will be provided to pt will be the same one. M7 PT-IP Assessment and Plan Start: 01/09/22 13:10 Freq: NEEDED Status: Active Protocol: Document 01/09/22 10:38 AB (Rec: 01/09/22 13:36 AB [id number]) PT Summary Assessment and Plan Potential Rehabilitation Potential Fair Status of Condition at Evaluation Evolving Summary Impairments Pain,ROM,Strength,Balance, Coordination,Sensation,Tone, Cognition,Bed Mobility, Transfers,Gait,Activity Tolerance Assessment Summary pt requiring max A x 2 to total A x 4 with mobility. requires 24/7 assist and recommending isaias lift transfers with nursing at this time. pt will require SNF rehab to improve overall functional mobility. Goals Bed Mobility Goal Moderate Assistance Transfer Goal Maximal Assistance,Slide Board Frequency of Treatment Frequency Of Treatment Once a Day Treatment Plan Physical Therapy Treatment Plan Bed Mobility Training,Transfer Training,Gait Training, Therapeutic Exercise,Balance Retraining,Discharge Planning, Hot or Cold Pack,Neuromuscular Re-ed,Coordination Retraining ,Manual Therapy Precautions Brace L knee hinged brace Other Precautions O2 sat; Per Dr. Christine progress note: She would also benefit from a hinged knee brace to prevent additional valgus stress on the knee while the fractures heal. This does not need to be locked Weight Bearing Status Weight Bearing Status Non-Weight Bearing Allowed Weight Bearing Amount (enter % LLE NWB or #) (%) Recommendations To Nursing Amount of Assist Needed Mechanical Lift Discharge Recommendations PT Discharge Recommendations SNF Rehab Transportation Needs at Discharge Wheelchair/Cabulance,Stretcher /Ambulance
--- NOTE | 2022-01-09 12:38 | OT.IP.EVAL ---
Past Medical History (Last Updated 01/09/22 @ 09:30 by Kuldeep Christine MD) CHF (congestive heart failure) COPD (chronic obstructive pulmonary disease) Depression Dyspnea on exertion Essential hypertension Fibromyalgia GERD (gastroesophageal reflux disease) History of DVT (deep vein thrombosis) History of fracture of right hip History of suicide attempt Hyperlipidemia Lymphedema of both lower extremities On home oxygen therapy Osteoarthritis Occupational Therapy Inpatient Evaluation/Re-Eval M2 OT-IP Current Condition Start: 01/09/22 13:05 Freq: Status: Active Protocol: Document 01/09/22 13:05 CGR (Rec: 01/09/22 13:29 CGR [id number]) Occupational Therapy Current Condition Current Condition Evaluation Date 01/09/22 Treatment Diagnosis Fall with L medial femoral condyle & lateral tivial plateau fx. Diagnosis Onset Date 01/09/22 Post Operative Precautions Other Precautions Pt is to wear a hinge brace Weight Bearing Status Weight Bearing Status Non-Weight Bearing M3 OT- IP Subjective and Pain Start: 01/09/22 13:05 Freq: Status: Active Protocol: Document 01/09/22 13:05 CGR (Rec: 01/09/22 13:29 CGR [id number]) OT- Subjective Occupational Therapy Visit Type Type Initial Evaluation Visit Start Time 11:45 Visit Stop Time 12:38 Total Visit Minutes 53 Notes Partial co-treat with P.T. OT Pain Assessment Pain When Pain Assessed During Mobility Pain Present Pain Present Pain Reported Location Left Leg Scale Used did not rate Pain Behaviors Facial Grimacing,Guarding Management Techniques Distraction,Modification of Treatment,Re-positioning M4 OT- IP ADL's Start: 01/09/22 13:05 Freq: Status: Active Protocol: Document 01/09/22 13:05 CGR (Rec: 01/09/22 13:29 CGR [id number]) OT [id number] General Evaluation Self-Feeding Ability Independent Comments OT Self-Feeding Comments Lunch at end of session OT ADL-Grooming Comments OT Grooming Comments not performed OT ADL-Oral Care Comments Oral Care Comments not performed OT ADL-Dressing General Eval Lower Body Dressing Ability Total Assistance Areas Needing Assistance Socks OT ADL-Toileting General Evaluation Toileting Ability Independent Comments OT Toileting Comments rangel OT ADL-Bathing Comments OT Bathing Comments not performed M5 OT- IP IADL's Start: 01/09/22 13:05 Freq: Status: Active Protocol: Document 01/09/22 13:05 CGR (Rec: 01/09/22 13:29 CGR [id number]) OT-Instrumental Activities of Daily Living Deficits IADL Deficits Identified Deficits Home Safety Awareness Awareness of Need for Assistance at Home Decreased Awareness Ability to Problem Solve Emergency Unable to Problem Solve Situations Home Safety Comments Pt displays inconsistent cognition. At times she is able to follow commands and answer questions and at other times she trails off and is unable to answer questions. Medication Management Medication Management Comments concerns regarding pts ability to perform safely Money Management Money Management Comments concerns regarding pts ability to perform safely Meal Preparation Meal Preparation Caregiver Provides Assist Clerical Aide Teacher Clerical Aide Teacher Caregiver Provides Assist Driving Driving Comments pt does not drive. M6 OT- IP Functional Cognition Start: 01/09/22 13:05 Freq: Status: Active Protocol: Document 01/09/22 13:05 CGR (Rec: 01/09/22 13:29 CGR [id number]) Cognitive Factors Limiting Selfcare Function Cognitive Ability Level of Alertness Alert Patient Orientation Name,Age,Birthday,Month,Date, Year,Day of Week,Place, Situation Attention Span Ability Capable of Focused Attention, Unable to Sustain Attention Ability to Follow Commands Able to Follow One Step Commands with Increased Time, Able to Follow One Step Commands with Repetition Cognitive Comments Cognitive Assessment Comments Pt would benefit from formal cog assessment. Pt was able to answer some questions but at other times she would trail off and was unable to finish her statement. OT- Vision and Hearing OT- Hearing Assessment OT- Hearing Assessment Hearing Impaired,Use of Hearing Aids OT- Vision Assessment Vision History Cataracts Visual Acuity Glasses For Reading Visual Attentiveness WFL Occular Pursuits WFL Visual Convergence WFL Vision Assessment Comments Pt has a hx of cateract sx and now only needs readers when she is reading. Pt was slightly delayed wth occular pursuits but WFL for a non helper driver. M7 OT- IP Mobility and Balance Start: 01/09/22 13:05 Freq: Status: Active Protocol: Document 01/09/22 13:05 CGR (Rec: 01/09/22 13:29 CGR [id number]) OT- Bed Mobility Assessment Supine to Sit Supine to Sit Assist Maximum Assistance,Total Assistance,2 Person Assistance Sit to Supine Sit to Supine Assist Total Assistance Scooting Scooting to Edge of Bed Maximum Assistance,1 Person Assistance,2 Person Assistance Scooting Up and Down in Bed Total Assistance OT-Transfer Assessment Comments Mobility Comments Pt was unable to stand for 3 attempts with a 2 person max a . Pt needed 4 person assist for returning to supine and scooting up in bed. OT- Gait Assessment Comments Gait Ability Comments did not occur OT- Balance Assessment Sitting Balance and Reactions Static Sitting Balance Ability Fair Dynamic Sitting Balance Ability Fair M8 OT- IP Objective Assessments Start: 01/09/22 13:05 Freq: Status: Active Protocol: Document 01/09/22 13:05 CGR (Rec: 01/09/22 13:29 CGR [id number]) OT Gross Range of Motion Upper Extremity Range of Motion Assessment Bilaterally Impaired ROM Impairments L sld 0-90, R shld 0-50 OT Strength Comments Strength Comments grossly 4-/5 OT- Coordination Assessment Upper Extremity Finger to Nose Test Within Functional Limits Finger Tapping Test Within Functional Limits OT-Muscle Tone Assessment Muscle Tone WNL Yes OT Sensation Assessment Edema Edema Absent M9 OT- IP Assessment and Plan Start: 01/09/22 13:05 Freq: Status: Active Protocol: Document 01/09/22 13:05 CGR (Rec: 01/09/22 13:29 CGR [id number]) OT Summary Assessment and Plan Potential Rehabilitation Potential Good Analytic Complexity at Evaluation High Summary OT Impairments Pain,Range of Motion,Strength, Balance,Functional Cognition, Functional Mobility,Grooming, Dressing,Toileting,Bathing, Toilet Transfers,Shower Transfers,Activity Tolerance Progress Towards Goals Slow Progress due to Pain,Slow Progress due to Cognition Assessment Summary Pt presents as a high complexity evaluation s/p admit for fall with L commuted fx of the medial femoral condyle and lateral tibial plateau. Pt needed assist for many ADLs at baseline but was ambulating short distances with a 4ww. Pt is unable to stand at this time with NWB to the LLE and pain. Pt will need SNF for increase in mobility and strength prior to returning home. Goals Grooming Goal Independent Dressing Goal Independent Toileting Goal Independent Bathing Goal Independent Toilet Transfer Goal Independent Shower Transfer Goal Independent Days to Meet Goals 30 Frequency of Treatment Frequency Of Treatment Once a Day Treatment Plan OT Treatment Plan ADL Training,Functional Cognition Training,Functional Mobility,Patient/Family Education,Discharge Planning Other Treatment Recommendations and Next cog assessment. ADls seated Treatment Focus EOB, cotreat Discharge Recommendations OT Discharge Recommendations SNF Rehab Transportation Needs at Discharge Stretcher/Ambulance
[2022-01-09 13:01] LABS: Appearance Urine UA CLEAR; Bilirubin Urine UA NEGATIVE (NEGATIVE); Color Urine UA YELLOW; Glucose Urine UA NEGATIVE (Negative); Ketones Urine UA NEGATIVE (NEGATIVE); Leukocyte Esterase Urine UA TRACE (NEGATIVE); Nitrite Urine UA NEGATIVE (Negative); Occult Blood Urine UA 1+ (Negative); Protein Urine UA NEGATIVE (Negative); Urobilinogen Urine UA 0.2 E.U./dL (0.2)
[2022-01-09 13:08] LABS: pH Urine UA 7.5 (4.5-8.0)
[2022-01-09 13:14] LABS: Bacteria Urine Few (2-10); Culture Indicated Urine Specimen Cultured; RBC Urine 5-10/HPF (0-5/HPF); Squamous Epithelial Cell Urine 1-5 /HPF (0-5/HPF); WBC Urine 5-10/HPF (0-5/HPF)
--- NOTE | 2022-01-09 13:31 | P.PN_ITS ---
Subjective Subjective Date Patient Seen: 01/09/22 Interval history: 77-year-old female with COPD, chronic hypoxic respiratory failure on 5 liters/minute, congestive heart failure, hypertension, and class 3 obesity who sustained a ground level fall after slipping in her own urine and was seen at [facility]. Imaging was negative there. She returned to [facility] ER yesterday and was found to have a left tibial plateau fracture. Patient reports she is feeling reasonably well this morning. She denies any chest pain or shortness of breath. She reports that she lives home in an apartment in [place]. She has 25 hours of caregiving a week. Her daughter lives in [place]. Her daughter is taking care of the patient's dog. Exam Vital Signs (past 8 hours): - 01/09/22 06:00 01/09/22 10:00 01/09/22 13:06 Temperature 98.5 F 98.2 F 97.8 F Pulse Rate 69 67 71 Respiratory Rate 18 19 19 Blood Pressure 190/68 H 166/74 H Pulse Oximetry 96 96 95 Oxygen Flow Rate 4 4 4 Oxygen Delivery Method Nasal Cannula Oxygen Flow Rate 4 Narrative Exam Narrative: GEN: Elderly female, pleasant, Alert and oriented x 3, NAD HEENT:NC, Face symmetric CHEST: Respiratory excursions symmetric, CTAB CV: RRR, no M/R/G ABD: Soft, NT/ND, BT present in all 4 quadrants, body habitus limits exam EXTR: warm, well perfused, no C/C/E, left anterolateral high reveals a hematoma, chronic venous stasis changes noted to both legs SKIN: warm and dry, no rash NEURO: Alert and oriented x 3, nonfocal Objective Labs Result Diagrams: 01/09/22 06:15 01/08/22 19:59 Labs: Laboratory Results - last 24 hr 01/08/22 01/08/22 01/08/22 19:59 19:59 21:10 WBC 7.7 RBC 3.60 L Hgb 11.0 L Hct 33.4 L MCV 92.8 MCH 30.5 MCHC 32.9 RDW 15.6 H Plt Count 300 Neut % (Auto) 72.2 Lymph % (Auto) 16.5 L Stewart % (Auto) 9.4 Eos % (Auto) 1.4 L Baso % (Auto) 0.5 Neut # (Auto) 5600 Lymph # (Auto) 1300 Stewart # (Auto) 700 Eos # (Auto) 100 Baso # (Auto) 0 Sodium 137 Potassium 4.5 Chloride 99 Carbon Dioxide 33 H BUN 14 Creatinine 0.99 Estimated GFR 58 L BUN/Creatinine Ratio 14.1 Glucose 111 H Calcium 9.0 Magnesium 2.0 Total Bilirubin 0.8 AST 33 ALT 24 Alkaline Phosphatase 69 Total Creatine Kinase 41 CK-MB (CK-2) TNP CK-MB (CK-2) Rel Index TNP Troponin I 0.034 NT-Pro-B Natriuret Pep 1350 H Total Protein 7.6 Albumin 4.0 Globulin 3.6 Albumin/Globulin Ratio 1.1 TSH Urine Color Urine Appearance Urine pH Ur Specific [place] Urine Protein Urine Glucose (UA) Urine Ketones Urine Occult Blood Urine Nitrate Urine Bilirubin Urine Urobilinogen Ur Leukocyte Esterase Urine RBC Urine WBC Ur Squamous Epith Cells Urine Bacteria Ur Culture Indicated? SARS-CoV-2 (PCR) Negative 01/09/22 01/09/22 01/09/22 01:50 01:50 06:15 WBC RBC Hgb Hct MCV MCH MCHC RDW Plt Count Neut % (Auto) Lymph % (Auto) Stewart % (Auto) Eos % (Auto) Baso % (Auto) Neut # (Auto) Lymph # (Auto) Stewart # (Auto) Eos # (Auto) Baso # (Auto) Sodium Potassium Chloride Carbon Dioxide BUN Creatinine Estimated GFR BUN/Creatinine Ratio Glucose Calcium Magnesium Total Bilirubin AST ALT Alkaline Phosphatase Total Creatine Kinase CK-MB (CK-2) CK-MB (CK-2) Rel Index Troponin I 0.039 H 0.030 NT-Pro-B Natriuret Pep Total Protein Albumin Globulin Albumin/Globulin Ratio TSH 3.17 Urine Color Urine Appearance Urine pH Ur Specific [place] Urine Protein Urine Glucose (UA) Urine Ketones Urine Occult Blood Urine Nitrate Urine Bilirubin Urine Urobilinogen Ur Leukocyte Esterase Urine RBC Urine WBC Ur Squamous Epith Cells Urine Bacteria Ur Culture Indicated? SARS-CoV-2 (PCR) 01/09/22 01/09/22 06:15 12:02 WBC RBC Hgb 10.7 L Hct 32.4 L MCV MCH MCHC RDW Plt Count Neut % (Auto) Lymph % (Auto) Stewart % (Auto) Eos % (Auto) Baso % (Auto) Neut # (Auto) Lymph # (Auto) Stewart # (Auto) Eos # (Auto) Baso # (Auto) Sodium Potassium Chloride Carbon Dioxide BUN Creatinine Estimated GFR BUN/Creatinine Ratio Glucose Calcium Magnesium Total Bilirubin AST ALT Alkaline Phosphatase Total Creatine Kinase CK-MB (CK-2) CK-MB (CK-2) Rel Index Troponin I NT-Pro-B Natriuret Pep Total Protein Albumin Globulin Albumin/Globulin Ratio TSH Urine Color Yellow Urine Appearance Clear Urine pH 7.5 Ur Specific [place] 1.010 Urine Protein Negative Urine Glucose (UA) Negative Urine Ketones Negative Urine Occult Blood 1+ H Urine Nitrate Negative Urine Bilirubin Negative Urine Urobilinogen 0.2 Ur Leukocyte Esterase Trace H Urine RBC 5-10/hpf H Urine WBC 5-10/hpf H Ur Squamous Epith Cells 1-5 /hpf Urine Bacteria Few (2-10) H Ur Culture Indicated? Specimen cultured SARS-CoV-2 (PCR) [facility] Medical History (Updated 01/09/22 @ 09:30 by Kuldeep Christine MD) CHF (congestive heart failure) COPD (chronic obstructive pulmonary disease) Depression Dyspnea on exertion Essential hypertension Fibromyalgia GERD (gastroesophageal reflux disease) History of DVT (deep vein thrombosis) History of fracture of right hip History of suicide attempt Hyperlipidemia Lymphedema of both lower extremities On home oxygen therapy Osteoarthritis Family History Daughter Heart attack Social History household members: caregiver Smoking Status: Former smoker alcohol intake: current substance use type: does not use Assessment & Plan Assessment & Plan narrative: 1. Left tibial plateau fracture Appreciate consult per Orthopedic surgery, Dr. Christine. Recommendation is for nonweightbearing status for 6 weeks and a knee immobilizer. Discussed with patient likely had for [facility] facility placement while she recuperates. She is receptive. 2. Hypertensive urgency Patient remains on amlodipine and metoprolol. Overall blood pressures are improved at 166/74.Troponin peaked at 0.039. Down to 0.03 this morning. 3. Class 3 obesity with a BMI of 53 Patient is at significantly increased risk of morbidity and mortality related to her high BMI. Would benefit from weight reduction. 4. COPD No evidence of exacerbation. 5. Chronic hypoxic respiratory failure Patient reports her baseline O2 is at 5 liters/minutes. This will be continued. 6. Chronic diastolic congestive heart failure Appears euvolemic presently. Continuous furosemide, metoprolol, spironolactone. Patient has 70 separate allergies listed, which is likely why she is not maximized medically. 7. Bilateral lower extremity lymphedema Chronic, stable. 8. Hyperlipidemia Continue atorvastatin. 9. GERD Continue Protonix. 10. Depression Continue outpatient medications inclusive of Abilify, doxepin, citalopram Code status Limited, DNI Prophylaxis Lovenox b.i.d. given elevated BMI Disposition Pending placement Time Spent With Patient Critical Care time: I spent a total of [] minutes of critical care time on this patient's care today; this time is exclusive of procedural time.
[2022-01-09] MEDS: NYSTATIN POWDER 15GM 1 APPLIC TOP ×2 (14:01→20:48)
--- NOTE | 2022-01-09 14:01 | PC.NURSE ---
Addendum entered by Tonya Smiley R.N. 01/09/22 18:31: sister(Brenda)called for update. sister also said that patient is unable to care for herself at home. the most she can walk is 10 feet at her baseline. caregiver is only there 2-4 hrs a day. Original Note: PHARMACIST HELPER cleaned up patient. applied nystatin. q2turn.
[2022-01-09] MEDS: DOXEPIN 10 MG CAPSULE 30 MG PO (20:47)
[2022-01-09] MEDS: ATORVASTATIN 20 MG TABLET 10 MG PO (20:47)
[2022-01-09] MEDS: SENNOSIDES 8.6 MG TABLET 17.2 MG PO (20:48)
[2022-01-10] VITALS (11 sets, daily range): BP systolic 126–198; BP diastolic 52–86; PULSE 60–85; RESP 16–20; TEMP 35.8–36.7; O2SAT 91–99
--- NOTE | 2022-01-10 07:53 | PM.PN.1 ---
Subjective Subjective Date Patient Seen: 01/10/22 Time Patient Seen: 16:26 Interval history: Patient notes she is thirsty, wants to drink more water but is on fluid restriction. Says pain is currently tolerable. Requesting to go to a SNF in [place] or [place] to be near her sister and daughter who live in [place]. Exam Vital Signs (past 8 hours): - 01/10/22 00:00 01/10/22 02:25 01/10/22 04:00 Temperature 98.0 F Pulse Rate 75 Respiratory Rate 18 Blood Pressure 126/72 Pulse Oximetry 95 93 95 Oxygen Delivery Method Nasal Cannula Nasal Cannula Oxygen Flow Rate 4 4 4 01/10/22 07:46 Temperature 97.4 F L Pulse Rate 66 Respiratory Rate 17 Blood Pressure 165/86 H Pulse Oximetry 96 Oxygen Delivery Method Oxygen Flow Rate 4 Oxygen Delivery Method Nasal Cannula Oxygen Flow Rate 4 Narrative Exam Narrative: GEN: Elderly female, pleasant, Alert and oriented x 3, NAD. Morbidly obese. HEENT:NC, Face symmetric CHEST: Respiratory excursions symmetric, CTAB CV: RRR, no M/R/G ABD: Soft, NT/ND, BT present in all 4 quadrants, body habitus limits exam EXTR: warm, well perfused, no C/C/E, left LE in brace, chronic venous stasis changes noted to both legs SKIN: warm and dry, no rash NEURO: Alert and oriented x 3, nonfocal Objective Labs Result Diagrams: 01/09/22 06:15 01/08/22 19:59 Labs: Laboratory Results - last 24 hr 01/09/22 12:02 Urine Color Yellow Urine Appearance Clear Urine pH 7.5 Ur Specific [place] 1.010 Urine Protein Negative Urine Glucose (UA) Negative Urine Ketones Negative Urine Occult Blood 1+ H Urine Nitrate Negative Urine Bilirubin Negative Urine Urobilinogen 0.2 Ur Leukocyte Esterase Trace H Urine RBC 5-10/hpf H Urine WBC 5-10/hpf H Ur Squamous Epith Cells 1-5 /hpf Urine Bacteria Few (2-10) H Ur Culture Indicated? Specimen cultured [facility] Medical History CHF (congestive heart failure) COPD (chronic obstructive pulmonary disease) Depression Dyspnea on exertion Essential hypertension Fibromyalgia GERD (gastroesophageal reflux disease) History of DVT (deep vein thrombosis) History of fracture of right hip History of suicide attempt Hyperlipidemia Lymphedema of both lower extremities On home oxygen therapy Osteoarthritis Family History Daughter Heart attack Social History household members: caregiver Smoking Status: Former smoker alcohol intake: current substance use type: does not use Assessment & Plan Assessment & Plan narrative: 1. Left tibial plateau fracture Appreciate consult per Orthopedic surgery, Dr. Christine. Recommendation is for nonweightbearing status for 6 weeks and a knee immobilizer. Discussed with patient likely had for [facility] facility placement while she recuperates. She is receptive. Currently in left knee brace. 2. Hypertensive urgency Patient remains on amlodipine and metoprolol. Overall blood pressures are improved at 166/74.Troponin peaked at 0.039. Now downtrending. 3. Class 3 obesity with a BMI of 53 Patient is at significantly increased risk of morbidity and mortality related to her high BMI. Would benefit from weight reduction. 4. COPD No evidence of exacerbation. 5. Chronic hypoxic respiratory failure Patient reports her baseline O2 is at 5 liters/minutes. This will be continued. 6. Chronic diastolic congestive heart failure Appears euvolemic presently. Continuous furosemide, metoprolol, spironolactone. Patient has 70 separate allergies listed, which is likely why she is not maximized medically. Discontinue fluid restriction. 7. Bilateral lower extremity lymphedema Chronic, stable. 8. Hyperlipidemia Continue atorvastatin. 9. GERD Continue Protonix. 10. Depression Continue outpatient medications inclusive of Abilify, doxepin, citalopram Code status Limited, DNI Prophylaxis Lovenox b.i.d. given elevated BMI Disposition Pending placement Time Spent With Patient Critical Care time: I spent a total of [] minutes of critical care time on this patient's care today; this time is exclusive of procedural time.
[2022-01-10] MEDS: AMLODIPINE 5 MG TABLET 10 MG PO (08:02)
[2022-01-10] MEDS: ARIPiprazole 10 MG TABLET 5 MG PO (08:02)
[2022-01-10] MEDS: CITALOPRAM 10 MG TABLET 15 MG PO (08:03)
[2022-01-10] MEDS: ENOXAPARIN 40 MG/0.4 ML SYRINGE SUBCUT ×2 (08:04→21:24)
[2022-01-10] MEDS: NYSTATIN POWDER 15GM 1 APPLIC TOP (08:04)
[2022-01-10] MEDS: FUROSEMIDE 20 MG TABLET PO (08:04)
[2022-01-10] MEDS: PANTOPRAZOLE DR 40 MG TABLET PO ×2 (08:04→21:23)
[2022-01-10] MEDS: METOPROLOL IR 50 MG TABLET PO ×2 (08:04→21:26)
--- NOTE | 2022-01-10 09:00 | PT.IPTN ---
Physical Therapy Treatment Note M2 PT-IP Current Condition Start: 01/09/22 13:10 Freq: NEEDED Status: Active Protocol: Document 01/09/22 10:38 AB (Rec: 01/09/22 13:36 AB [id number]) Physical Therapy Current Condition Current Condition Evaluation Date 01/09/22 Treatment Diagnosis L tibial plateau fx; difficulty in walking Onset Date 01/09/22 M3 PT-IP Subjective Start: 01/09/22 13:10 Freq: NEEDED Status: Active Protocol: Document 01/10/22 09:00 AB (Rec: 01/10/22 10:26 AB [email or web address]) Subjective Physical Therapy Visit Type Type Treatment Note Visit Start Time 09:00 Visit Stop Time 10:05 Total Visit Minutes 65 Number of AFRICAN STUDIES PROFESSOR Visits 0 Physical Therapy Visit Comments Patient Comments agreeable to do PT Therapy Pain Assessment Pain When Pain Assessed During Mobility Location Left Leg Scale Used pain scale not stated M4 PT-IP Mobility and Gait Start: 01/09/22 13:10 Freq: NEEDED Status: Active Protocol: Document 01/10/22 09:00 AB (Rec: 01/10/22 10:26 AB [email or web address]) PT-Bed Mobility Assessment Supine to Sit Supine to Sit Maximum Assistance,2 Person Assistance,Head of Bed Elevated,Bedrails Scooting Scooting to Edge of Bed Dependent PT-Transfer Assessment Sit to and From Stand Sit to and from Stand Maximum Assistance,2 Person Assistance,Use of Upper Extremities Equipment Transfer Assistive Device Gait Belt,Front Wheeled Walker Orthotic/Prosthetic Devices or Brace: Yes Transfers Transfer Destination Chair,Bedside Commode Transfer Technique commode/ chair switch Transfer Ability Level of Assist Maximum Assistance,2 Person Assistance,Use of Upper Extremities Comments Mobility Comments pt completed supine to sit max A x 2 and max cues with HOB elevated. total A x 2 for scooting to EOB. pt able to sit on EOB SBA to CGA and cues to not lean posteriorly. pt completed sit to stand from EOB max A x 2 and max cues using FWW for support max A. needed assistance to maintain NWB on LLE. pt then stated that she has to do BM. agreed to transfer to bedside commode. Per nurse, no sling available on the floor for the isaias lift and will need to ask materials supply and don't know when they can bring one. completed transfer to bedside commode with switching to bedside commode/chair during standing. pt completed sit to stand from EOB max A x 2 and max cues. Pt able to maintain standing using FWW for support max A x 2 and tolerated until nurse/aide was able to position bedside commode behind pt. pt completed sit to stand from bedside commode max A x 2 using FWW but unable to get to an upright position and only tolerated ~ 15 sec of standing and needs to sit back on bedside commode. pt rested. attempted and and completed sit to stand max A x 2 and max cues. max A x 2 for standing balance using FWW for support while NAC assisted with hygiene care. Pt tolerated standing using fWW max A x2 while NAC completed hygiene care and also switch and position chair behind pt. position pt on chair. call light and table placed within reach. left pt with OT. M5 PT-IP Objective Assessments Start: 01/09/22 13:10 Freq: NEEDED Status: Active Protocol: Document 01/09/22 10:38 AB (Rec: 01/09/22 13:36 [email or web address]) Orientation Orientation/Cognition Level of Alertness Confusional State Orientation Name,Place,Situation Language Function Ability Word Finding Difficulties,Hard of Hearing Safety Awareness Decreased Safety Awareness Memory Description Short Term Impaired Gross Range of Motion Lower Extremity ROM Assessment Bilaterally Impaired Impairments L knee not tested R knee limited with guarding; pt stated that she has arthritis and fibromyalgia B ankles are limited with DF Strength Lower Extremity Strength Assessment Bilaterally Impaired Comments Strength Comments RLE: 3-/5 LLE: 2/5 M6 PT-IP Treatment Start: 01/09/22 13:10 Freq: NEEDED Status: Active Protocol: Document 01/10/22 09:00 AB (Rec: 01/10/22 10:26 [email or web address]) Physical Therapy Treatment Education Education Provided Precautions,Weight Bearing Status,Safety M7 PT-IP Assessment and Plan Start: 01/09/22 13:10 Freq: NEEDED Status: Active Protocol: Document 01/10/22 09:00 AB (Rec: 01/10/22 10:[address] [facility] PT Summary Assessment and Plan Potential Rehabilitation Potential Fair Summary Impairments Pain,ROM,Strength,Balance, Coordination,Sensation,Tone, Cognition,Bed Mobility, Transfers,Gait,Activity Tolerance Progress Towards Goals Slow Progress due to Pain,Slow Progress due to Medical Issues,Slow Progress due to Activity Tolerance,Slow Progress - Other Assessment Summary pt improving slowly and was able to stand using FWW for support requiring max A x 2 and max cues. pt will require SNF rehab to improve strength and mobility. Goals Bed Mobility Goal Moderate Assistance Transfer Goal Maximal Assistance,Front Wheeled Walker,Slide Board Days to Meet Goals 10 Frequency of Treatment Frequency Of Treatment Once a Day Treatment Plan Physical Therapy Treatment Plan Bed Mobility Training,Transfer Training,Gait Training, Therapeutic Exercise,Balance Retraining,Discharge Planning, Hot or Cold Pack,Neuromuscular Re-ed,Coordination Retraining ,Manual Therapy Precautions Brace L knee hinged brace Other Precautions O2 sat; Per Dr. Christine progress note: She would also benefit from a hinged knee brace to prevent additional valgus stress on the knee while the fractures heal. This does not need to be locked Weight Bearing Status Weight Bearing Status Non-Weight Bearing Allowed Weight Bearing Amount (enter % LLE NWB or #) (%) Recommendations To Nursing Amount of Assist Needed Mechanical Lift Discharge Recommendations PT Discharge Recommendations SNF Rehab Transportation Needs at Discharge Wheelchair/Cabulance,Stretcher /Ambulance
--- NOTE | 2022-01-10 10:29 | OT.IP.TRT ---
Occupational Therapy Treatment Note M2 OT-IP Current Condition Start: 01/09/22 13:05 Freq: Status: Active Protocol: Document 01/09/22 13:05 CGR (Rec: 01/09/22 13:29 CGR [id number]) Occupational Therapy Current Condition Current Condition Evaluation Date 01/09/22 Treatment Diagnosis Fall with L medial femoral condyle & lateral tivial plateau fx. Diagnosis Onset Date 01/09/22 Post Operative Precautions Other Precautions Pt is to wear a hinge brace Weight Bearing Status Weight Bearing Status Non-Weight Bearing M3 OT- IP Subjective and Pain Start: 01/09/22 13:05 Freq: Status: Active Protocol: Document 01/10/22 11:19 CGR (Rec: 01/10/22 11:33 CGR [id number]) OT- Subjective Occupational Therapy Visit Type Type Progress Note Visit Start Time 09:10 Visit Stop Time 10:29 Total Visit Minutes 79 Notes partial co-treat with pt OT Pain Assessment Pain When Pain Assessed At Rest Pain Present Pain Present Denied Pain M4 OT- IP ADL's Start: 01/09/22 13:05 Freq: Status: Active Protocol: Document 01/10/22 11:19 CGR (Rec: 01/10/22 11:33 CGR [id number]) OT [id number] Comments OT Self-Feeding Comments not meal time OT ADL-Grooming General Evaluation Grooming Ability Maximum Assistance,Total Assistance Areas Needing Assistance Combing/Brushing Hair Comments OT Grooming Comments Pt is able to wash face with set up, pt needed max to total a for brushing her hair. OT ADL-Oral Care General Eval Oral Care Ability Moderate Assistance Areas of Assistance Retrieving/Set-Up of Items Comments Oral Care Comments pt needed mod vc for brushing teeth d/t fatigue vs focus? OT ADL-Dressing General Eval Lower Body Dressing Ability Total Assistance Areas Needing Assistance Socks OT ADL-Toileting General Evaluation Toileting Ability Total Assistance Areas Needing Assistance Manage Clothing,Perform Perineal Hygiene Comments OT Toileting Comments Pt has large bm seated on toilet. Pt needed total assist for back pericare. OT ADL-Bathing Comments OT Bathing Comments not performed M5 OT- IP IADL's Start: 01/09/22 13:05 Freq: Status: Active Protocol: Document 01/09/22 13:05 CGR (Rec: 01/09/22 13:29 CGR [id number]) OT-Instrumental Activities of Daily Living Deficits IADL Deficits Identified Deficits Home Safety Awareness Awareness of Need for Assistance at Home Decreased Awareness Ability to Problem Solve Emergency Unable to Problem Solve Situations Home Safety Comments Pt displays inconsistent cognition. At times she is able to follow commands and answer questions and at other times she trails off and is unable to answer questions. Medication Management Medication Management Comments concerns regarding pts ability to perform safely Money Management Money Management Comments concerns regarding pts ability to perform safely Meal Preparation Meal Preparation Caregiver Provides Assist Oracle Adf Developer Oracle Adf Developer Caregiver Provides Assist Driving Driving Comments pt does not drive. M6 OT- IP Functional Cognition Start: 01/09/22 13:05 Freq: Status: Active Protocol: Document 01/10/22 11:19 CGR (Rec: 01/10/22 11:33 R [id number]) Cognitive Factors Limiting Selfcare Function Cognitive Ability Level of Alertness Alert,Confusional State Patient Orientation Name,Month,Date,Year,Place, Situation Attention Span Ability Unable to Focus Cognitive Comments Cognitive Assessment Comments Pt needing lots of cues and difficulty focusing at time. Pt still trails off at times. OT- Vision and Hearing OT- Hearing Assessment OT- Hearing Assessment Hearing Impaired,Use of Hearing Aids OT- Vision Assessment Vision History Cataracts Visual Acuity Glasses For Reading Visual Attentiveness WFL Occular Pursuits WFL Visual Convergence WFL Vision Assessment Comments Pt has a hx of cateract sx and now only needs readers when she is reading. Pt was slightly delayed wth occular pursuits but WFL for a non driver sales. M7 OT- IP Mobility and Balance Start: 01/09/22 13:05 Freq: Status: Active Protocol: Document 01/10/22 11:19 CGR (Rec: 01/10/22 11:33 R [id number]) OT- Bed Mobility Assessment Supine to Sit Supine to Sit Assist Maximum Assistance,Total Assistance,2 Person Assistance Scooting Scooting to Edge of Bed Maximum Assistance,Total Assistance,2 Person Assistance OT-Transfer Assessment Sit to and From Stand Sit to and from Stand Maximum Assistance,2 Person Assistance Devices Transfer Assistive Devices Gait Belt,Front Wheeled Walker Comments Mobility Comments Pt performed sit to stand x4 and one partial for pericare. Pt was able to stand long enough for nursing to move bed to bsc then bsc to chair and pt left up in chair at end of session. OT- Balance Assessment Sitting Balance and Reactions Static Sitting Balance Ability Fair Dynamic Sitting Balance Ability Fair M8 OT- IP Objective Assessments Start: 01/09/22 13:05 Freq: Status: Active Protocol: Document 01/10/22 11:19 CGR (Rec: 01/10/22 11:33 CGR [id number]) OT Gross Range of Motion Upper Extremity Range of Motion Assessment Bilaterally Impaired ROM Impairments L sld 0-90, R shld 0-50 OT Strength Comments Strength Comments grossly 4-/5 OT- Coordination Assessment Upper Extremity Finger to Nose Test Within Functional Limits Finger Tapping Test Within Functional Limits OT-Muscle Tone Assessment Muscle Tone WNL Yes OT Sensation Assessment Edema Edema Absent M9 OT- IP Assessment and Plan Start: 01/09/22 13:05 Freq: Status: Active Protocol: Document 01/10/22 11:19 CGR (Rec: 01/10/22 11:33 CGR [id number]) OT Summary Assessment and Plan Potential Rehabilitation Potential Good Analytic Complexity at Evaluation High Summary OT Impairments Pain,Range of Motion,Strength, Balance,Functional Cognition, Functional Mobility,Grooming, Dressing,Toileting,Bathing, Toilet Transfers,Shower Transfers,Activity Tolerance Progress Towards Goals Slow Progress due to Pain,Slow Progress due to Cognition Assessment Summary Pt presents as a high complexity evaluation s/p admit for fall with L commuted fx of the medial femoral condyle and lateral tibial plateau. Pt needed assist for many ADLs at baseline but was ambulating short distances with a 4ww. Pt was able to stand multiple times with max x 2 and difficulty maintaing her NWB to the LLE. Pt left up in chair with call button at end of session. Goals Grooming Goal Independent Dressing Goal Independent Toileting Goal Independent Bathing Goal Independent Toilet Transfer Goal Independent Shower Transfer Goal Independent Days to Meet Goals 30 Frequency of Treatment Frequency Of Treatment Once a Day Treatment Plan OT Treatment Plan ADL Training,Functional Cognition Training,Functional Mobility,Patient/Family Education,Discharge Planning Other Treatment Recommendations and Next cog assessment. ADls seated Treatment Focus EOB, cotreat Discharge Recommendations OT Discharge Recommendations SNF Rehab Transportation Needs at Discharge Stretcher/Ambulance
[2022-01-10] MEDS: ALBUTEROL/IPRATROPIUM 3 ML AMPUL INH ×2 (12:04→16:31)
--- NOTE | 2022-01-10 14:12 | CM.DPC ---
Discharge planning note: Alert and oriented pleasant obese (306 lbs) female here with left tibial plateau fracture and is non-surgical and must be non-ambulatory for 6 weeks. She was able to dangle at side of bed and get to chair with 2 person assist today. PT and staff and NWB with ortho brace on. She is here on OBS and so far no SNFs ([facility], [facility], [facility], [facility]) have agreed to take her due to not doing Covid waivers and do not have bariatric beds. Left messages for [facility] and faxed referral. Also, spoke with Damon at [facility] and they may be able to take her on her Medicaid insurance and they do have bariatric beds. Referral faxed at 2pm. P: Continue to contact SNFs for acceptance. Carol Fontaine RN/DCP
[2022-01-10] MEDS: DOXEPIN 10 MG CAPSULE 30 MG PO (21:22)
[2022-01-10] MEDS: SENNOSIDES 8.6 MG TABLET 17.2 MG PO (21:23)
[2022-01-10] MEDS: ATORVASTATIN 20 MG TABLET 10 MG PO (21:23)
[2022-01-11] VITALS (11 sets, daily range): BP systolic 109–168; BP diastolic 58–76; PULSE 70–80; RESP 16–18; TEMP 36–37; O2SAT 93–97
[2022-01-11] MEDS: OXYCODONE IR 10 MG TABLET PO ×2 (00:13→22:22)
[2022-01-11] MEDS: ARIPiprazole 10 MG TABLET 5 MG PO (08:48)
[2022-01-11] MEDS: CITALOPRAM 10 MG TABLET 15 MG PO (08:48)
[2022-01-11] MEDS: PANTOPRAZOLE DR 40 MG TABLET PO ×2 (08:48→21:32)
[2022-01-11] MEDS: FUROSEMIDE 20 MG TABLET PO (08:49)
[2022-01-11] MEDS: ENOXAPARIN 40 MG/0.4 ML SYRINGE SUBCUT ×2 (08:49→21:37)
[2022-01-11] MEDS: AMLODIPINE 5 MG TABLET 10 MG PO (08:49)
[2022-01-11] MEDS: METOPROLOL IR 50 MG TABLET PO ×2 (08:49→21:33)
[2022-01-11] MEDS: NYSTATIN POWDER 15GM 1 APPLIC TOP ×2 (08:52→21:35)
--- NOTE | 2022-01-11 11:30 | PT.IPTN ---
Physical Therapy Treatment Note M2 PT-IP Current Condition Start: 01/09/22 13:10 Freq: NEEDED Status: Active Protocol: Document 01/09/22 10:38 AB (Rec: 01/09/22 13:36 AB [id number]) Physical Therapy Current Condition Current Condition Evaluation Date 01/09/22 Treatment Diagnosis L tibial plateau fx; difficulty in walking Onset Date 01/09/22 M3 PT-IP Subjective Start: 01/09/22 13:10 Freq: NEEDED Status: Active Protocol: Document 01/11/22 11:30 AB (Rec: 01/11/22 12:56 AB [id number]) Subjective Physical Therapy Visit Type Type Treatment Note Visit Start Time 11:30 Visit Stop Time 12:05 Total Visit Minutes 35 Notes co tx conducted with OT due to pt's complex medical conditions Number of AD TERMINAL MAKEUP OPERATOR Visits 0 Therapy Pain Assessment Pain When Pain Assessed During Mobility Location Left Leg Scale Used pain scale not stated Pain Management Techniques Distraction,Modification of Treatment,Re-positioning, Timing of Activity with Medications M4 PT-IP Mobility and Gait Start: 01/09/22 13:10 Freq: NEEDED Status: Active Protocol: Document 01/11/22 11:30 AB (Rec: 01/11/22 12:56 AB [id number]) PT-Bed Mobility Assessment Supine to Sit Supine to Sit Maximum Assistance,2 Person Assistance,Head of Bed Elevated,Bedrails PT-Transfer Assessment Comments Mobility Comments pt completeds upine to sit max A x 2 and max cues. able to move LE towards EOB but with max A . pt sat on EOB min to mod for sitting balance with increase posterior trunk lean. total A x 2 for scooting to EOB. pt tolerated ~ 5 min of sitting on EOB but when asked to stand. pt refused to stand and stated that she feels out of sort and does not feel safe to stand. o2 sat 100% OK 87 BP: 191/110. assisted pt back in bed. nurse presents and is aware of BP. sit to supine total A x 3. total A for positioning in bed . call light and table placed within reach. BP checked again: 191/88. M5 PT-IP Objective Assessments Start: 01/09/22 13:10 Freq: NEEDED Status: Active Protocol: Document 01/09/22 10:38 AB (Rec: 01/09/22 13:36 AB [id number]) Orientation Orientation/Cognition Level of Alertness Confusional State Orientation Name,Place,Situation Language Function Ability Word Finding Difficulties,Hard of Hearing Safety Awareness Decreased Safety Awareness Memory Description Short Term Impaired Gross Range of Motion Lower Extremity ROM Assessment Bilaterally Impaired Impairments L knee not tested R knee limited with guarding; pt stated that she has arthritis and fibromyalgia B ankles are limited with DF Strength Lower Extremity Strength Assessment Bilaterally Impaired Comments Strength Comments RLE: 3-/5 LLE: 2/5 M6 PT-IP Treatment Start: 01/09/22 13:10 Freq: NEEDED Status: Active Protocol: Document 01/11/22 11:30 AB (Rec: 01/11/22 12:56 AB [email or web address]) Physical Therapy Treatment Education Education Provided Safety M7 PT-IP Assessment and Plan Start: 01/09/22 13:10 Freq: NEEDED Status: Active Protocol: Document 01/11/22 11:30 AB (Rec: 01/11/22 12:56 AB [id number]) PT Summary Assessment and Plan Potential Rehabilitation Potential Fair Summary Impairments Pain,ROM,Strength,Balance, Coordination,Sensation,Tone, Cognition,Bed Mobility, Transfers,Gait,Activity Tolerance Progress Towards Goals Slow Progress due to Pain,Slow Progress due to Medical Issues,Slow Progress due to Activity Tolerance,Slow Progress - Other Assessment Summary pt continues to require max A x 2 to total A x 2-3 and max cues with all tasks. pt will require SNF rehab to improve strength and mobility. Goals Bed Mobility Goal Moderate Assistance Transfer Goal Maximal Assistance,Front Wheeled Walker,Slide Board Days to Meet Goals 10 Frequency of Treatment Frequency Of Treatment Once a Day Treatment Plan Physical Therapy Treatment Plan Bed Mobility Training,Transfer Training,Gait Training, Therapeutic Exercise,Balance Retraining,Discharge Planning, Hot or Cold Pack,Neuromuscular Re-ed,Coordination Retraining ,Manual Therapy Precautions Brace L knee hinged brace Other Precautions O2 sat; Per Dr. Christine progress note: She would also benefit from a hinged knee brace to prevent additional valgus stress on the knee while the fractures heal. This does not need to be locked Weight Bearing Status Weight Bearing Status Non-Weight Bearing Allowed Weight Bearing Amount (enter % LLE NWB or #) (%) Recommendations To Nursing Amount of Assist Needed Mechanical Lift Discharge Recommendations PT Discharge Recommendations SNF Rehab Transportation Needs at Discharge Wheelchair/Cabulance,Stretcher /Ambulance
--- NOTE | 2022-01-11 11:55 | CM.DPC ---
Addendum entered by Carrie Ji R.N. 01/11/22 15:10: Did get to speak to patient's MEJIA case packer and sealer, Brenda Sharma. She indicated that patient has the max amount of caregiving hours she can have. She stated that her last assessment was in September. Let her know that if no places are secured, patient may need to go home with home health. She also mentioned that patient's caregivers at home indicate that she is not motivated to move around, needs encouragement. She also indicated that patient had used her [employer] more often, she thinks that it was for assisting her when she couldn't get out of a chair when caregivers were not available. She also indicated that it would take time to do another assessment. At this time, care management will continue to work on placement. Addendum entered by Carrie Ji R.N. 01/11/22 14:45: Spoke to Deborah at [facility]. She did indicate that they have shared rooms. Discussed patient's situation, and going either COVID waiver or Medicaid. Deborah indicated that they have had Medicaid beds before. She asked that this [place] materials planner/production planner fax over the referral to her own number. Faxed referral to Deborah's fax at: [phone]. She will review. Have not yet heard back from patient's MEJIA case packer and sealer Addendum entered by Carrie Ji R.N. 01/11/22 14:21: Liane from [facility] called back and left a message that they are not accepting new patients at this time. MEJIA [facility] Welfare Aide left a message indicating that patient has about 115 caregiving hours a month. Patient may need to go home and resume MEJIA caregivers, can discuss this with her case packer and sealer. It is unclear as to who patient has as a primary care provider at this time, to enable home health. Can discuss with patient as well. Addendum entered by Carrie Ji R.N. 01/11/22 12:54: Mei rosas [facility] called back and is declining patient due to her non-weight bearing status, and being under her Medicaid. Have left Deborah a message at [facility] to call back. Addendum entered by Carrie Ji R.N. 01/11/22 12:46: Met with patient and sister, Brenda Rob, who was at bedside. Sister indicated, she has been living alone and really can't take care of herself. Asked her if she had been in contact with MEJIA case packer and sealer, Brenda Sharma. Patient has been in communication with her. Confirmed that patient has been getting about 5 hours a day of caregiving services, but had been getting harder for patient to walk. Sister indicated that when patient first fell, she had been taken to [facility] and sent home. She then had increased pain, and was brought here. Reminded patient that she is under observation status, and the barrier is finding a place that would skill her on COVID waiver, since she would be about 6 weeks non-weight bearing. Let her know that [facility] has been called, there is a message out to Mei to see if they have any Medicaid beds. Let patient also know that several facilities in [place] have been faxed as well. Will follow up with some phone calls today. Original Note: DCP Cont: Called [facility] to find out if they can possibly take patient on Medicaid. Spoke to Damon, who indicated that they do not have any current Medicaid beds. Having financial planning assistant, Karen, send referrals over to all of the [place] facilities. [facility] Sp[facility] to Toshia at [facility], and found out that the barriers of accepting this patient is that she has not had booster for COVID, no availabilies of bariatric beds, and that she would need to be 6 weeks non-weight bearing, and COVID waiver does not cover this. Other option is looking for Medicaid beds. Did call [facility] to see who patient's MEJIA case packer and sealer is, left a message. Just received a call back from [facility]. Found out that her MEJIA case packer and sealer is Brenda Sharma. Her number is: [phone]. Patient may need a new assessment to increase her MEJIA hours. Left a message with Mei at [facility] to see if she has any Medicaid beds.Did leave a message for her MEJIA case packer and sealer, Columba. P: DCP to continue to work on placement for patient. Carrie Ji RN/Welfare Aide
--- NOTE | 2022-01-11 12:05 | OT.IP.TRT ---
Occupational Therapy Treatment Note M2 OT-IP Current Condition Start: 01/09/22 13:05 Freq: Status: Active Protocol: Document 01/09/22 13:05 CGR (Rec: 01/09/22 13:29 CGR [id number]) Occupational Therapy Current Condition Current Condition Evaluation Date 01/09/22 Treatment Diagnosis Fall with L medial femoral condyle & lateral tivial plateau fx. Diagnosis Onset Date 01/09/22 Post Operative Precautions Other Precautions Pt is to wear a hinge brace Weight Bearing Status Weight Bearing Status Non-Weight Bearing M3 OT- IP Subjective and Pain Start: 01/09/22 13:05 Freq: Status: Active Protocol: Document 01/11/22 12:09 CGR (Rec: 01/11/22 12:25 CGR [id number]) OT- Subjective Occupational Therapy Visit Type Type Progress Note Visit Start Time 11:35 Visit Stop Time 12:05 Total Visit Minutes 30 Notes co-treat with P.T. OT Pain Assessment Pain When Pain Assessed During Mobility Pain Present Pain Present Pain Reported Location Left Leg Scale Used did not rate Management Techniques Modification of Treatment,Re- positioning M4 OT- IP ADL's Start: 01/09/22 13:05 Freq: Status: Active Protocol: Document 01/10/22 11:19 CGR (Rec: 01/10/22 11:33 CGR [id number]) OT [id number] Comments OT Self-Feeding Comments not meal time OT ADL-Grooming General Evaluation Grooming Ability Maximum Assistance,Total Assistance Areas Needing Assistance Combing/Brushing Hair Comments OT Grooming Comments Pt is able to wash face with set up, pt needed max to total a for brushing her hair. OT ADL-Oral Care General Eval Oral Care Ability Moderate Assistance Areas of Assistance Retrieving/Set-Up of Items Comments Oral Care Comments pt needed mod vc for brushing teeth d/t fatigue vs focus? OT ADL-Dressing General Eval Lower Body Dressing Ability Total Assistance Areas Needing Assistance Socks OT ADL-Toileting General Evaluation Toileting Ability Total Assistance Areas Needing Assistance Manage Clothing,Perform Perineal Hygiene Comments OT Toileting Comments Pt has large bm seated on toilet. Pt needed total assist for back pericare. OT ADL-Bathing Comments OT Bathing Comments not performed M5 OT- IP IADL's Start: 01/09/22 13:05 Freq: Status: Active Protocol: Document 01/09/22 13:05 CGR (Rec: 01/09/22 13:29 CGR [id number]) OT-Instrumental Activities of Daily Living Deficits IADL Deficits Identified Deficits Home Safety Awareness Awareness of Need for Assistance at Home Decreased Awareness Ability to Problem Solve Emergency Unable to Problem Solve Situations Home Safety Comments Pt displays inconsistent cognition. At times she is able to follow commands and answer questions and at other times she trails off and is unable to answer questions. Medication Management Medication Management Comments concerns regarding pts ability to perform safely Money Management Money Management Comments concerns regarding pts ability to perform safely Meal Preparation Meal Preparation Caregiver Provides Assist Digital Forensics Examiner Digital Forensics Examiner Caregiver Provides Assist Driving Driving Comments pt does not drive. M6 OT- IP Functional Cognition Start: 01/09/22 13:05 Freq: Status: Active Protocol: Document 01/10/22 11:19 CGR (Rec: 01/10/22 11:33 CGR [id number]) Cognitive Factors Limiting Selfcare Function Cognitive Ability Level of Alertness Alert,Confusional State Patient Orientation Name,Month,Date,Year,Place, Situation Attention Span Ability Unable to Focus Cognitive Comments Cognitive Assessment Comments Pt needing lots of cues and difficulty focusing at time. Pt still trails off at times. OT- Vision and Hearing OT- Hearing Assessment OT- Hearing Assessment Hearing Impaired,Use of Hearing Aids OT- Vision Assessment Vision History Cataracts Visual Acuity Glasses For Reading Visual Attentiveness WFL Occular Pursuits WFL Visual Convergence WFL Vision Assessment Comments Pt has a hx of cateract sx and now only needs readers when she is reading. Pt was slightly delayed wth occular pursuits but WFL for a non taxicab driver. M7 OT- IP Mobility and Balance Start: 01/09/22 13:05 Freq: Status: Active Protocol: Document 01/11/22 12:09 CGR (Rec: 01/11/22 12:25 CGR [id number]) OT- Bed Mobility Assessment Supine to Sit Supine to Sit Assist Maximum Assistance,Total Assistance,2 Person Assistance Sit to Supine Sit to Supine Assist Maximum Assistance,Total Assistance,2 Person Assistance Scooting Scooting to Edge of Bed Maximum Assistance,Total Assistance,2 Person Assistance OT-Transfer Assessment Comments Mobility Comments Pt needed max to total assist for supine to sit. Pt sitting EOB stating I need to lay back down. BP taken and 191/110. Returned to supine with total x3. OT- Gait Assessment Comments Gait Ability Comments did not occur OT- Balance Assessment Sitting Balance and Reactions Static Sitting Balance Ability Fair Dynamic Sitting Balance Ability Fair M8 OT- IP Objective Assessments Start: 01/09/22 13:05 Freq: Status: Active Protocol: Document 01/10/22 11:19 CGR (Rec: 01/10/22 11:33 CGR [id number]) OT Gross Range of Motion Upper Extremity Range of Motion Assessment Bilaterally Impaired ROM Impairments L sld 0-90, R shld 0-50 OT Strength Comments Strength Comments grossly 4-/5 OT- Coordination Assessment Upper Extremity Finger to Nose Test Within Functional Limits Finger Tapping Test Within Functional Limits OT-Muscle Tone Assessment Muscle Tone WNL Yes OT Sensation Assessment Edema Edema Absent M9 OT- IP Assessment and Plan Start: 01/09/22 13:05 Freq: Status: Active Protocol: Document 01/11/22 12:09 CGR (Rec: 01/11/22 12:25 CGR [id number]) OT Summary Assessment and Plan Potential Rehabilitation Potential Good Analytic Complexity at Evaluation High Summary OT Impairments Pain,Range of Motion,Strength, Balance,Functional Cognition, Functional Mobility,Grooming, Dressing,Toileting,Bathing, Toilet Transfers,Shower Transfers,Activity Tolerance Progress Towards Goals Slow Progress due to Pain,Slow Progress due to Cognition Assessment Summary Pt presents as a high complexity evaluation s/p admit for fall with L commuted fx of the medial femoral condyle and lateral tibial plateau. Pt sat EOB but was unable to stand stating she felt off. BP taken at 191/110 and pt returned to bed. Goals Grooming Goal Independent Dressing Goal Independent Toileting Goal Independent Bathing Goal Independent Toilet Transfer Goal Independent Shower Transfer Goal Independent Days to Meet Goals 30 Frequency of Treatment Frequency Of Treatment Once a Day Treatment Plan OT Treatment Plan ADL Training,Functional Cognition Training,Functional Mobility,Patient/Family Education,Discharge Planning Other Treatment Recommendations and Next cog assessment. ADls seated Treatment Focus EOB, cotreat Discharge Recommendations OT Discharge Recommendations SNF Rehab Transportation Needs at Discharge Stretcher/Ambulance
--- NOTE | 2022-01-11 14:27 | P.PN_ITS ---
Subjective Subjective Date Patient Seen: 01/11/22 Interval history: 77-year-old female with COPD, chronic hypoxic respiratory failure on 5 liters/minute, congestive heart failure, hypertension, and class 3 obesity who sustained a ground level fall after slipping in her own urine and was seen at [facility]. Imaging was negative there. She returned to [facility] and was found to have a left tibial plateau fracture. She is awaiting SNF placement at this time but this has proven difficult thus far. She has no new complaints today. Exam Vital Signs (past 8 hours): - 01/11/22 07:42 01/11/22 07:56 01/11/22 08:00 Temperature 96.8 F L Pulse Rate 73 Respiratory Rate 17 Blood Pressure 168/66 H Pulse Oximetry 95 97 Oxygen Delivery Method Nasal Cannula Room Air Oxygen Flow Rate 2 0 Fraction of Inspired Oxygen 01/11/22 12:00 01/11/22 12:00 01/11/22 09:00 Temperature 97.5 F L Pulse Rate 70 78 Respiratory Rate 18 18 Blood Pressure 157/76 H Pulse Oximetry 97 96 95 Oxygen Delivery Method Nasal Cannula Nasal Cannula Oxygen Flow Rate 1 2 2 Fraction of Inspired Oxygen 28 Fraction of Inspired Oxygen 28 Oxygen Delivery Method Nasal Cannula Oxygen Flow Rate 2 Narrative Exam Narrative: GEN: Elderly female, pleasant, Alert and oriented x 3, NAD. Morbidly obese. HEENT:NC, Face symmetric CHEST: Respiratory excursions symmetric, CTAB CV: RRR, no M/R/G ABD: Soft, NT/ND, BT present in all 4 quadrants, body habitus limits exam EXTR: warm, well perfused, no C/C/E, left LE in brace, chronic venous stasis changes noted to both legs SKIN: warm and dry, no rash NEURO: Alert and oriented x 3, nonfocal Objective Labs Result Diagrams: 01/09/22 06:15 01/08/22 19:59 PFS Medical History CHF (congestive heart failure) COPD (chronic obstructive pulmonary disease) Depression Dyspnea on exertion Essential hypertension Fibromyalgia GERD (gastroesophageal reflux disease) History of DVT (deep vein thrombosis) History of fracture of right hip History of suicide attempt Hyperlipidemia Lymphedema of both lower extremities On home oxygen therapy Osteoarthritis Family History Daughter Heart attack Social History household members: caregiver Smoking Status: Former smoker alcohol intake: current substance use type: does not use Assessment & Plan Assessment & Plan narrative: 1. Left tibial plateau fracture Appreciate consult per Orthopedic surgery, Dr. Christine. Recommendation is for nonweightbearing status for 6 weeks and a knee immobilizer. Discussed with patient likely had for care home facility placement while she recuperates. She is receptive. Currently in left knee brace. -may need to discharge home with home health if unable to find a facility. 2. Hypertensive urgency, improved Patient remains on amlodipine and metoprolol. Overall blood pressures are i mproved at 166/74.Troponin peaked at 0.039. Now downtrending. 3. Class 3 obesity with a BMI of 53 Patient is at significantly increased risk of morbidity and mortality related to her high BMI. Would benefit from weight reduction. 4. COPD No evidence of exacerbation. 5. Chronic hypoxic respiratory failure Patient reports her baseline O2 is at 5 liters/minutes. This will be continued. 6. Chronic diastolic congestive heart failure Appears euvolemic presently. Continuous furosemide, metoprolol, spironolactone. Patient has 70 separate allergies listed, which is likely why she is not maximized medically. Discontinue fluid restriction. 7. Bilateral lower extremity lymphedema Chronic, stable. 8. Hyperlipidemia Continue atorvastatin. 9. GERD Continue Protonix. 10. Depression Continue outpatient medications inclusive of Abilify, doxepin, citalopram Code status Limited, DNI Prophylaxis Lovenox b.i.d. given elevated BMI Disposition Pending placement Time Spent With Patient Critical Care time: I spent a total of [] minutes of critical care time on this patient's care today; this time is exclusive of procedural time.
--- NOTE | 2022-01-11 15:53 | CM.DPC ---
DCP Cont: Halley from [facility] in [place] called. Stated that she could take patient on COVID waiver. Her phone number is: [phone]. Her fax number is: [phone]. Their address is: [id number] [place] [address]. Spoke to Halley, she was prepared to take patient tomorrow, but she can only take patients up to 250 pounds. She did state that she will check with her team tomorrow and call if they can make availability. P: DCP to continue to work on placement. Carrie Ji RN/Stave Cutter
[2022-01-11] MEDS: ALBUTEROL/IPRATROPIUM 3 ML AMPUL INH (16:47)
[2022-01-11 19:01] LABS: Add Manual Diff / Slide Review NO; Basophils Absolute Auto 0 /uL (0-100); Basophils Percent Auto 0.6 % (0-2); Eosinophils Absolute Auto 200 /uL (0-450); Eosinophils Percent Auto 2.5 % (2-4); Hematocrit 33.9 % (36-46); Lymphocytes Absolute Auto 1600 /uL (1100-4500); Lymphocytes Percent Auto 19.8 % (25-40); Mean Corpuscular HGB Conc 32.5 % (30-36); Mean Corpuscular Hemoglobin 30.1 PG (26-34); Mean Corpuscular Volume 92.7 fL (80-100); Monocytes Absolute Auto 600 /uL (0-900); Monocytes Percent Auto 7.2 % (3-14); Neutrophils Absolute Auto 5700 /uL (1500-7000); Neutrophils Percent Auto 69.9 % (50-75); Platelet Count 315 X10^3/uL (150-400); Red Blood Cell Count 3.66 X10^6/uL (4.0-5.2); Red Cell Distribution Width 15.6 % (11.6-14.8); White Blood Cell Count 8.1 X10^3/uL (4.5-11.0)
[2022-01-11 19:12] LABS: BUN Creatinine Ratio 18.1 (6-22); Blood Urea Nitrogen 21 mg/dL (7-17); Calcium 8.3 mg/dL (8.4-10.2); Carbon Dioxide 28 mmol/L (22-32); Chloride 100 mmol/L (98-107); Estimated Glomerular Filt Rate 48 mL/min (>60); Glucose 134 mg/dL (80-110); HEMOLYSIS 15 (0-50); Potassium 3.8 mmol/L (3.4-5.1); Sodium 137 mmol/L (137-145)
[2022-01-11] MEDS: ATORVASTATIN 20 MG TABLET 10 MG PO (21:33)
[2022-01-11] MEDS: SENNOSIDES 8.6 MG TABLET 17.2 MG PO (21:33)
[2022-01-11] MEDS: DOXEPIN 10 MG CAPSULE 30 MG PO (21:35)
[2022-01-12] VITALS (12 sets, daily range): BP systolic 110–163; BP diastolic 42–71; PULSE 67–73; RESP 16–22; TEMP 36.1–37.2; O2SAT 88–98
[2022-01-12] MEDS: ARIPiprazole 10 MG TABLET 5 MG PO (09:18)
[2022-01-12] MEDS: FUROSEMIDE 20 MG TABLET PO (09:18)
[2022-01-12] MEDS: AMLODIPINE 5 MG TABLET 10 MG PO (09:18)
[2022-01-12] MEDS: PANTOPRAZOLE DR 40 MG TABLET PO ×2 (09:18→20:55)
[2022-01-12] MEDS: CITALOPRAM 10 MG TABLET 15 MG PO (09:19)
[2022-01-12] MEDS: METOPROLOL IR 50 MG TABLET PO ×2 (09:19→20:55)
[2022-01-12] MEDS: ENOXAPARIN 40 MG/0.4 ML SYRINGE SUBCUT ×2 (09:19→20:55)
[2022-01-12] MEDS: NYSTATIN POWDER 15GM 1 APPLIC TOP ×2 (09:20→21:05)
[2022-01-12] MEDS: ALBUTEROL/IPRATROPIUM 3 ML AMPUL INH ×2 (09:36→19:01)
--- NOTE | 2022-01-12 12:48 | PT.IPTN ---
Physical Therapy Treatment Note M2 PT-IP Current Condition Start: 01/09/22 13:10 Freq: NEEDED Status: Active Protocol: Document 01/09/22 10:38 AB (Rec: 01/09/22 13:36 AB [id number]) Physical Therapy Current Condition Current Condition Evaluation Date 01/09/22 Treatment Diagnosis L tibial plateau fx; difficulty in walking Onset Date 01/09/22 M3 PT-IP Subjective Start: 01/09/22 13:10 Freq: NEEDED Status: Active Protocol: Document 01/12/22 12:48 AB (Rec: 01/12/22 14:00 AB [email or web address]) Subjective Physical Therapy Visit Type Type Treatment Note Visit Start Time 12:48 Visit Stop Time 13:33 Total Visit Minutes 45 Number of JOURNEYMAN PRESSMAN Visits 0 Physical Therapy Visit Comments Patient Comments agreeable to do PT Therapy Pain Assessment Pain When Pain Assessed During Mobility Pain Present Pain Present Pain Reported Location Left Leg Scale Used pain scale not stated Pain Management Techniques Distraction,Modification of Treatment,Re-positioning, Timing of Activity with Medications M4 PT-IP Mobility and Gait Start: 01/09/22 13:10 Freq: NEEDED Status: Active Protocol: Document 01/12/22 12:48 AB (Rec: 01/12/22 14:00 AB [id number]) PT-Bed Mobility Assessment Supine to Sit Supine to Sit Maximum Assistance,Total Assistance,2 Person Assistance Sit to Supine Sit to Supine Total Assistance,2 Person Assistance PT-Transfer Assessment Sit to and From Stand Sit to and from Stand Maximum Assistance,2 Person Assistance,Use of Upper Extremities Comments Mobility Comments adjusted hinged knee immobilizer. completed supine to sit with HOB elevated and pt used bed rail max A x 2 to total A x 2 and max cues. able to sit on EOB SBA to CGA and cues to keep trunk forward . sit to stand x 3 attempts only able to stand once and only for ~ 3 sec and sat back down and requiring max A x 2 and max cues. pt required max A for NWB on LLE and max cues . required total A x 2 for sit to supine and total A x 3 for positioning in bed. call light and table placed within reach. ` M5 PT-IP Objective Assessments Start: 01/09/22 13:10 Freq: NEEDED Status: Active Protocol: Document 01/09/22 10:38 AB (Rec: 01/09/22 13:36 AB [id number]) Orientation Orientation/Cognition Level of Alertness Confusional State Orientation Name,Place,Situation Language Function Ability Word Finding Difficulties,Hard of Hearing Safety Awareness Decreased Safety Awareness Memory Description Short Term Impaired Gross Range of Motion Lower Extremity ROM Assessment Bilaterally Impaired Impairments L knee not tested R knee limited with guarding; pt stated that she has arthritis and fibromyalgia B ankles are limited with DF Strength Lower Extremity Strength Assessment Bilaterally Impaired Comments Strength Comments RLE: 3-/5 LLE: 2/5 M6 PT-IP Treatment Start: 01/09/22 13:10 Freq: NEEDED Status: Active Protocol: Document 01/12/22 12:48 AB (Rec: 01/12/22 14:00 AB [id number]) Physical Therapy Treatment Education Education Provided Precautions,Weight Bearing Status,Safety M7 PT-IP Assessment and Plan Start: 01/09/22 13:10 Freq: NEEDED Status: Active Protocol: Document 01/12/22 12:48 AB (Rec: 01/12/22 14:00 AB [id number]) PT Summary Assessment and Plan Potential Rehabilitation Potential Fair Summary Impairments Pain,ROM,Strength,Balance, Coordination,Sensation,Tone, Cognition,Bed Mobility, Transfers,Gait,Activity Tolerance Progress Towards Goals Slow Progress due to Medical Issues,Slow Progress due to Activity Tolerance,Slow Progress - Other Assessment Summary pt continues to require max A x 2 to total A x 3 for mobility and unable to stand long enough to transfer despite max A x 2 provided. pt will require SNF rehab to improve strength and mobility. Goals Bed Mobility Goal Moderate Assistance Transfer Goal Maximal Assistance,Front Wheeled Walker,Slide Board Days to Meet Goals 10 Frequency of Treatment Frequency Of Treatment Once a Day Treatment Plan Physical Therapy Treatment Plan Bed Mobility Training,Transfer Training,Gait Training, Therapeutic Exercise,Balance Retraining,Discharge Planning, Hot or Cold Pack,Neuromuscular Re-ed,Coordination Retraining ,Manual Therapy Precautions Other Precautions O2 sat; Per Dr. Christine progress note: She would also benefit from a hinged knee brace to prevent additional valgus stress on the knee while the fractures heal. This does not need to be locked Weight Bearing Status Weight Bearing Status Non-Weight Bearing Allowed Weight Bearing Amount (enter % LLE NWB or #) (%) Recommendations To Nursing Amount of Assist Needed Mechanical Lift Discharge Recommendations PT Discharge Recommendations SNF Rehab Transportation Needs at Discharge Wheelchair/Cabulance,Stretcher /Ambulance
--- NOTE | 2022-01-12 13:29 | OT.IP.TRT ---
Occupational Therapy Treatment Note M2 OT-IP Current Condition Start: 01/09/22 13:05 Freq: Status: Active Protocol: Document 01/09/22 13:05 CGR (Rec: 01/09/22 13:29 CGR [id number]) Occupational Therapy Current Condition Current Condition Evaluation Date 01/09/22 Treatment Diagnosis Fall with L medial femoral condyle & lateral tivial plateau fx. Diagnosis Onset Date 01/09/22 Post Operative Precautions Other Precautions Pt is to wear a hinge brace Weight Bearing Status Weight Bearing Status Non-Weight Bearing M3 OT- IP Subjective and Pain Start: 01/09/22 13:05 Freq: Status: Active Protocol: Document 01/12/22 13:34 CGR (Rec: 01/12/22 13:43 CGR [id number]) OT- Subjective Occupational Therapy Visit Type Type Progress Note Visit Start Time 12:47 Visit Stop Time 13:29 Total Visit Minutes 42 Notes co-treat with p.t. OT Pain Assessment Pain When Pain Assessed At Rest Pain Present Pain Present Denied Pain M4 OT- IP ADL's Start: 01/09/22 13:05 Freq: Status: Active Protocol: Document 01/12/22 13:34 CGR (Rec: 01/12/22 13:43 CGR [id number]) OT [id number] Comments OT Self-Feeding Comments not meal time OT ADL-Grooming General Evaluation Grooming Ability Standby Assistance Areas Needing Assistance Face Washing Comments OT Grooming Comments supine in bed after activity. OT ADL-Oral Care Comments Oral Care Comments not performed OT ADL-Dressing General Eval Lower Body Dressing Ability Total Assistance Areas Needing Assistance Socks OT ADL-Toileting General Evaluation Toileting Ability Total Assistance Comments OT Toileting Comments pt with periwick OT ADL-Bathing Comments OT Bathing Comments not performed M5 OT- IP IADL's Start: 01/09/22 13:05 Freq: Status: Active Protocol: Document 01/09/22 13:05 CGR (Rec: 01/09/22 13:29 CGR [id number]) OT-Instrumental Activities of Daily Living Deficits IADL Deficits Identified Deficits Home Safety Awareness Awareness of Need for Assistance at Home Decreased Awareness Ability to Problem Solve Emergency Unable to Problem Solve Situations Home Safety Comments Pt displays inconsistent cognition. At times she is able to follow commands and answer questions and at other times she trails off and is unable to answer questions. Medication Management Medication Management Comments concerns regarding pts ability to perform safely Money Management Money Management Comments concerns regarding pts ability to perform safely Meal Preparation Meal Preparation Caregiver Provides Assist Farm Worker Farm Worker Caregiver Provides Assist Driving Driving Comments pt does not drive. M6 OT- IP Functional Cognition Start: 01/09/22 13:05 Freq: Status: Active Protocol: Document 01/10/22 11:19 CGR (Rec: 01/10/22 11:33 CGR [id number]) Cognitive Factors Limiting Selfcare Function Cognitive Ability Level of Alertness Alert,Confusional State Patient Orientation Name,Month,Date,Year,Place, Situation Attention Span Ability Unable to Focus Cognitive Comments Cognitive Assessment Comments Pt needing lots of cues and difficulty focusing at time. Pt still trails off at times. OT- Vision and Hearing OT- Hearing Assessment OT- Hearing Assessment Hearing Impaired,Use of Hearing Aids OT- Vision Assessment Vision History Cataracts Visual Acuity Glasses For Reading Visual Attentiveness WFL Occular Pursuits WFL Visual Convergence WFL Vision Assessment Comments Pt has a hx of cateract sx and now only needs readers when she is reading. 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 M7 OT- IP Mobility and Balance Start: 01/09/22 13:05 Freq: Status: Active Protocol: Document 01/12/22 13:34 CGR (Rec: 01/12/22 13:43 CGR [id number]) OT- Bed Mobility Assessment Supine to Sit Supine to Sit Assist Total Assistance,2 Person Assistance Sit to Supine Sit to Supine Assist Total Assistance,2 Person Assistance Scooting Scooting to Edge of Bed Total Assistance,2 Person Assistance Scooting Up and Down in Bed Total Assistance,2 Person Assistance OT-Transfer Assessment Sit to and From Stand Sit to and from Stand Total Assistance,2 Person Assistance Comments Mobility Comments Attempted sit to stand with total x 2 for 3 attempts. Pt was able to get buttox off the bed on the 3rd attempt for 2- 3 seconds. Pt then returned to bed at end of session. OT- Gait Assessment Comments Gait Ability Comments does not occur OT- Balance Assessment Sitting Balance and Reactions Static Sitting Balance Ability Fair Dynamic Sitting Balance Ability Fair M8 OT- IP Objective Assessments Start: 01/09/22 13:05 Freq: Status: Active Protocol: Document 01/10/22 11:19 CGR (Rec: 01/10/22 11:33 CGR [id number]) OT Gross Range of Motion Upper Extremity Range of Motion Assessment Bilaterally Impaired ROM Impairments L sld 0-90, R shld 0-50 OT Strength Comments Strength Comments grossly 4-/5 OT- Coordination Assessment Upper Extremity Finger to Nose Test Within Functional Limits Finger Tapping Test Within Functional Limits OT-Muscle Tone Assessment Muscle Tone WNL Yes OT Sensation Assessment Edema Edema Absent M9 OT- IP Assessment and Plan Start: 01/09/22 13:05 Freq: Status: Active Protocol: Document 01/12/22 13:34 CGR (Rec: 01/12/22 13:43 CGR [id number]) OT Summary Assessment and Plan Potential Rehabilitation Potential Good Analytic Complexity at Evaluation High Summary OT Impairments Pain,Range of Motion,Strength, Balance,Functional Cognition, Functional Mobility,Grooming, Dressing,Toileting,Bathing, Toilet Transfers,Shower Transfers,Activity Tolerance Progress Towards Goals Slow Progress due to Pain,Slow Progress due to Cognition Assessment Summary Pt presents as a high complexity evaluation s/p admit for fall with L commuted fx of the medial femoral condyle and lateral tibial plateau. Pt needed total assist x2 for all mobility on this date but was able to stand for 2-3 seconds on last sit to stand trial. Pt will continue to benefit from therapy services. Recommend d/ c to SNF. Goals Grooming Goal Independent Dressing Goal Independent Toileting Goal Independent Bathing Goal Independent Toilet Transfer Goal Independent Shower Transfer Goal Independent Days to Meet Goals 30 Frequency of Treatment Frequency Of Treatment Once a Day Treatment Plan OT Treatment Plan ADL Training,Functional Cognition Training,Functional Mobility,Patient/Family Education,Discharge Planning Other Treatment Recommendations and Next cog assessment. ADls seated Treatment Focus EOB, cotreat Discharge Recommendations OT Discharge Recommendations SNF Rehab Transportation Needs at Discharge Stretcher/Ambulance
--- NOTE | 2022-01-12 15:11 | CM.DPNOTE ---
Called [facility] for BLS transport to [facility] in [place]. Spoke to Bianca who said transport team could be here at 0900. Karen Heard CM Assist.
--- NOTE | 2022-01-12 15:11 | CM.DPC ---
DCP Cont: DCP spoke with Deborah at [facility] this afternoon and they have accepted the pt as long as pt receives her booster vaccine. Deborah requesting more clinicals and those have been sent over. Deborah states that they can accept pt tomorrow in the AM. Pt will be transported via BLS @ 0900. Covid swab is ordered. RN and provider aware. [facility]AC[facility] faxed to [facility]. D/c summary and meds to be faxed in the AM. DCP to continue to follow. P: Pt to discharge tomorrow to [facility] via BLS transport. Jeana Guzman RN/DCP
--- NOTE | 2022-01-12 15:35 | PM.PN.1 ---
Subjective Subjective Date Patient Seen: 01/12/22 Interval history: 77-year-old female with COPD, chronic hypoxic respiratory failure on 5 liters/minute, congestive heart failure, hypertension, and class 3 obesity who sustained a ground level fall after slipping in her own urine and was seen at [facility]. Imaging was negative there. She returned to [place] and was found to have a left tibial plateau fracture. She is awaiting SNF placement at this time but this has proven difficult thus far. She has no new complaints today. Exam Vital Signs (past 8 hours): - 01/12/22 09:00 01/12/22 09:36 01/12/22 10:00 Temperature 98.9 F Pulse Rate 72 71 Respiratory Rate 18 Blood Pressure 110/71 Pulse Oximetry 88 L 98 98 Oxygen Delivery Method Nasal Cannula Nasal Cannula Oxygen Flow Rate 2 2 2 01/12/22 13:00 01/12/22 14:00 Temperature 97.0 F L Pulse Rate 71 Respiratory Rate 20 Blood Pressure 146/51 H Pulse Oximetry 95 95 Oxygen Delivery Method Room Air Oxygen Flow Rate 0 Fraction of Inspired Oxygen 28 Oxygen Delivery Method Room Air Oxygen Flow Rate 0 Narrative Exam Narrative: GEN: Elderly female, pleasant, Alert and oriented x 3, NAD. Morbidly obese. HEENT:NC, Face symmetric CHEST: Respiratory excursions symmetric, CTAB CV: RRR, no M/R/G ABD: Soft, NT/ND, BT present in all 4 quadrants, body habitus limits exam EXTR: warm, well perfused, no C/C/E, left LE in brace, chronic venous stasis changes noted to both legs SKIN: warm and dry, no rash NEURO: Alert and oriented x 3, nonfocal Objective Labs Result Diagrams: 01/11/22 18:45 01/11/22 18:45 Labs: Laboratory Results - last 24 hr 01/11/22 01/11/22 18:45 18:45 WBC 8.1 RBC 3.66 L Hgb 11.0 L Hct 33.9 L MCV 92.7 MCH 30.1 MCHC 32.5 RDW 15.6 H Plt Count 315 Neut % (Auto) 69.9 Lymph % (Auto) 19.[address] [place] % (Auto) 7.2 Eos % (Auto) 2.5 Baso % (Auto) 0.6 Neut # (Auto) 5700 Lymph # (Auto) 1600 [place] # (Auto) 600 Eos # (Auto) 200 Baso # (Auto) 0 Sodium 137 Potassium 3.8 Chloride 100 Carbon Dioxide 28 BUN 21 H Creatinine 1.16 H Estimated GFR 48 L BUN/Creatinine Ratio 18.1 Glucose 134 H Calcium 8.3 L PFS Medical History CHF (congestive heart failure) COPD (chronic obstructive pulmonary disease) Depression Dyspnea on exertion Essential hypertension Fibromyalgia GERD (gastroesophageal reflux disease) History of DVT (deep vein thrombosis) History of fracture of right hip History of suicide attempt Hyperlipidemia Lymphedema of both lower extremities On home oxygen therapy Osteoarthritis Family History Daughter Heart attack Social History household members: caregiver Smoking Status: Former smoker alcohol intake: current substance use type: does not use Assessment & Plan Assessment & Plan narrative: 1. Left tibial plateau fracture Appreciate consult per Orthopedic surgery, Dr. Christine. Recommendation is for nonweightbearing status for 6 weeks and a knee immobilizer. Discussed with patient likely had for halfway facility placement while she recuperates. She is receptive. Currently in left knee brace. -may need to discharge home with home health if unable to find a facility. 2. Hypertensive urgency, improved Patient remains on amlodipine and metoprolol. Overall blood pressures are improved at 166/74.Troponin peaked at 0.039. Now downtrending. 3. Class 3 obesity with a BMI of 53 Patient is at significantly increased risk of morbidity and mortality related to her high BMI. Would benefit from weight reduction. 4. COPD No evidence of exacerbation. 5. Chronic hypoxic respiratory failure Patient reports her baseline O2 is at 5 liters/minutes. This will be continued. 6. Chronic diastolic congestive heart failure Appears euvolemic presently. Continuous furosemide, metoprolol, spironolactone. Patient has 70 separate allergies listed, which is likely why she is not maximized medically. Discontinue fluid restriction. 7. Bilateral lower extremity lymphedema Chronic, stable. 8. Hyperlipidemia Continue atorvastatin. 9. GERD Continue Protonix. 10. Depression Continue outpatient medications inclusive of Abilify, doxepin, citalopram Code status Limited, DNI Prophylaxis Lovenox b.i.d. given elevated BMI Disposition Pending placement Time Spent With Patient Critical Care time: I spent a total of [] minutes of critical care time on this patient's care today; this time is exclusive of procedural time.
[2022-01-12 17:14] LABS: COVID19 -Nasal RAPID Negative (Negative)
--- NOTE | 2022-01-12 17:21 | DI.US.S_ITS ---
PROCEDURE: US PERIPH VENOUS LOW EXTREM LT INDICATIONS: L LE edema/pain s/p tibial plateau frx, h/o DVT TECHNIQUE: Real-time imaging, as well as color and pulse Doppler interrogation, were performed of the lower extremity deep veins from the inguinal ligament to the popliteal fossa. COMPARISON: [facility], CT, CT LE LT WO CON, 01/08/2022, 20:41. FINDINGS: The common femoral, femoral and popliteal veins are normally compressible, and free of intraluminal thrombus. Color and pulse Doppler demonstrate normal phasic intraluminal flow. There is normal augmentation response to distal compression maneuver. IMPRESSION: No left lower extremity DVT. Dictated by: Aravind Cobian M.D. on 01/12/2022 at 18:39 Approved by: Aravind Cobian M.D. on 01/12/2022 at 18:40
--- NOTE | 2022-01-12 17:23 | PM.PN.1 ---
Subjective Subjective Date Patient Seen: 01/12/22 Time Patient Seen: 08:40 Interval history: The patient is drowsy, but easily arousable. She is complaining of mild to moderate left leg pain. Her knee immobilizer is in place. Exam Vital Signs (past 8 hours): - 01/12/22 09:36 01/12/22 10:00 01/12/22 13:00 Temperature 97.0 F L Pulse Rate 71 71 Respiratory Rate 18 20 Blood Pressure 146/51 H Pulse Oximetry 98 98 95 Oxygen Delivery Method Nasal Cannula Nasal Cannula Oxygen Flow Rate 2 2 0 01/12/22 14:00 01/12/22 16:37 Temperature 98.1 F Pulse Rate 69 Respiratory Rate 20 Blood Pressure 147/48 H Pulse Oximetry 95 96 Oxygen Delivery Method Room Air Oxygen Flow Rate 2 Fraction of Inspired Oxygen 28 Oxygen Delivery Method Room Air Oxygen Flow Rate 2 Narrative Exam Narrative: 77 yo female, sleepy but easily arousable, resting comfortably in bed, no acute distress. Knee immobilizer is in place. Calf is tender to plapation and there is edema noted. Bilateral lower extremity motor function is grossly intact, sensation is decreased bilaterally-patient notes this is her baseline. Objective Labs Result Diagrams: 01/11/22 18:45 01/11/22 18:45 Labs: Laboratory Results - last 24 hr 01/11/22 01/11/22 01/12/22 18:45 18:45 14:49 WBC 8.1 RBC 3.66 L Hgb 11.0 L Hct 33.9 L MCV 92.7 MCH 30.1 MCHC 32.5 RDW 15.6 H Plt Count 315 Neut % (Auto) 69.9 Lymph % (Auto) 19.8 L [place] % (Auto) 7.2 Eos % (Auto) 2.5 Baso % (Auto) 0.6 Neut # (Auto) 5700 Lymph # (Auto) 1600 [place] # (Auto) 600 Eos # (Auto) 200 Baso # (Auto) 0 Sodium 137 Potassium 3.8 Chloride 100 Carbon Dioxide 28 BUN 21 H Creatinine 1.16 H Estimated GFR 48 L BUN/Creatinine Ratio 18.1 Glucose 134 H Calcium 8.3 L SARS-CoV-2 (PCR) Negative [facility] Medical History CHF (congestive heart failure) COPD (chronic obstructive pulmonary disease) Depression Dyspnea on exertion Essential hypertension Fibromyalgia GERD (gastroesophageal reflux disease) History of DVT (deep vein thrombosis) History of fracture of right hip History of suicide attempt Hyperlipidemia Lymphedema of both lower extremities On home oxygen therapy Osteoarthritis Family History Daughter Heart attack Social History household members: caregiver Smoking Status: Former smoker alcohol intake: current substance use type: does not use Assessment & Plan Assessment & Plan narrative: The patient is a marginally ambulatory morbidly obese 77-year-old woman with a previous history of a fall fracturing her right hip.? She slipped and fell on a wet floor and probably sustained a significant valgus deformity to her knee with an avulsion of the medial collateral ligament and mild compression of the lateral tibial plateau.? These fractures are minimally displaced and do not require surgery.? -nonweightbearing status for approximately 6 weeks and then progressive return to full weight-bearing.? -She would also benefit from a hinged knee brace to prevent additional valgus stress on the knee while the fractures heal.? This does not need to be locked however she will be difficult to fit due to her body habitus and would best be served by an evaluation by a certified breastfeeding educator for brace fitting.? If a hinged knee brace cannot be obtained, a knee immobilizer could be substituted for the 1st 6 weeks.? -She will likely require senior living facility placement as she was marginally safe in her home environment prior to her recent injury. If a SNF is not available, home health upon discharge -continue with multimodal pain management -US ordered today to r/o DVT. Calf is TTP and patient has a h/o DVT. She is currently on Lovenox and will start aspirin tomorrow. -follow up with ortho in 2 weeks -ortho to sign off, please reconsult if any additional issues arise Time Spent With Patient Critical Care time: I spent a total of [] minutes of critical care time on this patient's care today; this time is exclusive of procedural time.
[2022-01-12] MEDS: DOXEPIN 10 MG CAPSULE 30 MG PO (20:54)
[2022-01-12] MEDS: ATORVASTATIN 20 MG TABLET 10 MG PO (20:55)
[2022-01-13] VITALS (7 sets, daily range): BP systolic 144–186; BP diastolic 55–72; PULSE 68–78; RESP 16–22; TEMP 36.2–36.4; O2SAT 94–98
[2022-01-13] MEDS: ACETAMINOPHEN 325 MG TABLET 650 MG PO (03:32)
[2022-01-13] MEDS: ALBUTEROL/IPRATROPIUM 3 ML AMPUL INH (09:35)
--- NOTE | 2022-01-13 09:43 | CM.DPNOTE ---
Called [facility] to cancel 0900 transport due to no booster vaccine available. Called [facility] for 1300 pickup. Spoke to Sabiha. Karen Heard CM Assist.
--- NOTE | 2022-01-13 10:26 | P.DS_ITS ---
History of Present Illness History of Present Illness Date Patient Seen: 01/13/22 Chief complaint: L knee pain. fall yesterday Narrative: Galina Roque is a 77-year-old female with a history of COPD on home oxygen, cardiac murmur, dyspnea on exertion, CHF, hypertension, obesity, uses a walker, depression, GERD, osteoarthritis, hyperlipidemia, and bilateral lower extremity lymphedema who presented to [facility] ED with complaints of severe worsening lower extremity pain inability to weight bear, and ambulate. Patient experienced a ground level fall on 01/07/2002 was taken to [facility] ED where the patient had negative imaging of CT of pelvis, hip, head and knee. The patient was then DC to home. Upon developing worsening lower extremity pain and continued inability to weight bear or ambulate the patient was transported to [facility] ED. Imaging demonstrated Left commuted fracture of the medial femoral condyle and lateral tibial plateau fracture. She denied dizziness, weakness, lightheaded, chest pain, worsening shortness of breath, abd pain, nausea, or vomiting.? Her pain increased significantly with palpation, attempts at ambulation and improves with rest.? Records have been requested by the ED.? She has a walker at baseline, has 2 hrs in home care daily and takes no anticoagulation. Upon admit vital signs temp 98.4?, BP 195/74, HR 72, RR 16, O2 saturation 95% on 3 L nasal cannula, noted patient's BP upon admit to the ED 224/93. CBC: RBC 3.6, HGB 11, HCT 33.4, CMP WNL with the exception of GFR 58, BNP 1350, troponin 1. WNL but elevated 0.034, Last troponin<0.012. Left femur xray: Demonstrated a comminuted fracture of the medial femoral condyle and lateral tibial plateau fracture. Lower extremity CT: Demonstrated a?nondepressed mildly displaced fracture of the lateral tibial plateau, comminuted fracture of the medial femoral condyle posteriorly partially visualized, and a suspected fracture of the lateral femoral condyle posteriorly. Patient admitted for ground level fall resulting in a Left pathological admitted fracture of the medial condyle, left lateral tibial plateau fracture, and hypertensive urgency. Discharge Providers Provider Date of admission: 01/09/22 00:22 Discharge Date: 01/13/22 Consults: 01/09/22 01:17 Consult to Physician Routine Comment: Consulting Provider: Kuldeep Christine Reason for consultation: Femoral & tibial plateau fx Has provider been notified: Yes 01/09/22 01:39 Consult to Survey Research Associate Routine Comment: will need SNF placement/rehab 01/09/22 05:04 Consult to Dietitian, Adult Routine Comment: Reason For Exam: BMI 53 01/09/22 10:10 Consult to Occupational Therapy Evaluate & Treat Comment: [facility] to LLE Physician Instructions: Evaluate and treat Consult to Physical Therapy Evaluate & Treat Comment: [facility] to LLE Physician Instructions: Evaluate and Treat Discharge provider: Jake Gaspar DO Summary Hospital Course Discharge Diagnosis: 1. Left tibial plateau fracture 2. Hypertensive urgency, improved 3. Class 3 obesity with a BMI of 53 4. COPD 5. Chronic hypoxic respiratory failure 6. Chronic diastolic congestive heart failure 7. Bilateral lower extremity lymphedema 8. Hyperlipidemia 9. GERD 10. Depression 11. Myocardial injury, resolved Hospital Course: This is a 69-year-old female with past medical history of hypertension, obesity, COPD with chronic hypoxic respiratory failure and chronic diastolic heart failure who was admitted with a left tibial plateau fracture. She is also noted to have a mildly elevated troponin but no shortness of breath or chest pain. Troponin down trended and is likely due to her chronic underlying heart failure and stress from the fracture. Management of her fracture is non operative per Orthopedic surgery. She is to remain nonweightbearing in her left leg for 6 weeks and remain in a knee immobilizer. She should follow up with Orthopedic surgery as an outpatient in 2 weeks. As an outpatient orthopedics is recommending a possible hinged knee brace by a certified hyperbaric technologist, if possible. If not possible, she should remain in the knee immobilizer for the for 6 weeks as noted above. No changes were made to the patient's home medication and her pain was adequately controlled. She remains on 5 L of oxygen, her home amount. Patient was unsafe to discharge home due to difficulty with mobilization, she was discharged to a retirement facility. Time Spent with Patient Time spent: Greater than 30 minutes Exam Vital Signs (past 8 hours): - 01/13/22 03:55 01/13/22 05:30 01/13/22 09:36 Temperature 97.4 F L Pulse Rate 71 76 Respiratory Rate 16 20 Blood Pressure 186/72 H Pulse Oximetry 95 94 98 Oxygen Delivery Method Nasal Cannula Nasal Cannula Oxygen Flow Rate 2 2 2 01/13/22 09:00 Temperature 97.2 F L Pulse Rate 78 Respiratory Rate 19 Blood Pressure 144/55 H Pulse Oximetry 96 Oxygen Delivery Method Oxygen Flow Rate 2 Fraction of Inspired Oxygen 28 Oxygen Delivery Method Nasal Cannula Oxygen Flow Rate 2 Narrative Exam Narrative: GEN: Elderly female, pleasant, Alert and oriented x 3, NAD. Morbidly obese. HEENT:NC, Face symmetric CHEST: Respiratory excursions symmetric, CTAB CV: RRR, no M/R/G ABD: Soft, NT/ND, BT present in all 4 quadrants, body habitus limits exam EXTR: warm, well perfused, no C/C/E, left LE in brace, chronic venous stasis changes noted to both legs SKIN: warm and dry, no rash NEURO: Alert and oriented x 3, nonfocal Objective Labs Result Diagrams: 01/11/22 18:45 01/11/22 18:45 Labs: Laboratory Results - last 24 hr 01/12/22 14:49 SARS-CoV-2 (PCR) Negative PFSH Medical History CHF (congestive heart failure) COPD (chronic obstructive pulmonary disease) Depression Dyspnea on exertion Essential hypertension Fibromyalgia GERD (gastroesophageal reflux disease) History of DVT (deep vein thrombosis) History of fracture of right hip History of suicide attempt Hyperlipidemia Lymphedema of both lower extremities On home oxygen therapy Osteoarthritis Family History Daughter Heart attack Social History household members: caregiver Smoking Status: Former smoker alcohol intake: current substance use type: does not use Discharge Plan Discharge Plan Patient Disposition: SNF Provider Discharge Comment: Please see discharge summary I certify the postop hospital retirement care is medically necessary on a continuing basis for any conditions for which he/ she received care during this hospitalization.: Yes The receiving facility has agreed to accept transfer and provide medical treatment.: Yes Discharge orders & Medications Prescriptions: New sennosides [senna] 8.6 mg Tablet 17.2 mg PO BEDTIME 14 Days Qty: 28 0RF acetaminophen 325 mg Tablet 650 mg PO Q4H PRN (Reason: Fever/Mild Pain (1-3)) 30 Days Qty: 60 0RF aspirin 81 mg Tablet,Delayed Release (Dr/Ec) 81 mg PO DAILY 30 Days Qty: 30 0RF oxycodone 5 mg Tablet 5 - 10 mg PO Q4HR PRN (Reason: Pain, Moderate (4-6)) 7 Days Qty: 40 0RF simvastatin 20 mg tablet 20 mg PO BEDTIME 30 Days Qty: 30 0RF Continued citalopram 10 mg Tablet 15 mg PO DAILY dicyclomine 20 mg Tablet 20 mg PO TID PRN (Reason: Cramps) carboxymethylcellulose sodium 0.5 % Drops 2 drp EYE-BOTH QID PRN (Reason: Dry Eyes) amlodipine 10 mg Tablet 10 mg PO DAILY aripiprazole 10 mg Tablet 5 mg PO DAILY calcium carbonate-vitamin D3 [Calcium 500 + D (D3)] 500 mg(1,250mg) -125 unit Tablet 1 tab PO BID ipratropium-albuterol 20-100 mcg/actuation Mist 1 puff inhalation QID garlic 1 cap PO DAILY miconazole nitrate 2 % Cream 1 applic TOPICAL BID doxepin 10 mg Capsule 30 mg PO BEDTIME pantoprazole 40 mg Tablet,Delayed Release (Dr/Ec) 40 mg PO DAILY metoprolol tartrate 50 mg Tablet 50 mg PO DAILY nitroglycerin 0.4 mg Tablet, Sublingual 0.4 mg SUBLINGUAL Q5-15M PRN (Reason: Chest Pain) furosemide 20 mg Tablet 20 mg PO DAILY epinephrine 0.3 mg/0.3 mL Auto-Injector 0.3 mg IM PRN PRN (Reason: Allergic Reaction) loratadine 10 mg Tablet 10 mg PO DAILY vitamin B complex Capsule 1 cap PO DAILY multivitamin with minerals Capsule 1 cap PO DAILY spironolactone 12.5 mg PO DAILY Discharge Health Status Multidrug resistant organism: No MDRO Precautions: [place] Diet/Activity/Treatments Diet: Diet as Tolerated and Low-sodium Liquid consistency: Normal/Thin Food texture: Regular Activity: NWE Discharge Data Attending Provider: Nevaeh Mauricio
[2022-01-13] MEDS: COVID-19 VACC #3, MRNA(MOD) 50 MCG/0.25 ML VIAL IM (10:39)
--- NOTE | 2022-01-13 10:50 | CM.DPC ---
DCP Plan Cont: Pt was unable to receive booster vaccine yesterday. Pt to receive booster dose today and BLS transport to pick her up @ 1300 to transfer pt to [facility]. Deborah at [facility] was called and informed of change. Clinicals and pertinent information to be sent once received. Jeana Guzman Rn/DCP
--- NOTE | 2022-01-13 11:45 | OT.IP.TRT ---
Occupational Therapy Treatment Note M2 OT-IP Current Condition Start: 01/09/22 13:05 Freq: Status: Active Protocol: Document 01/09/22 13:05 CGR (Rec: 01/09/22 13:29 CGR [id number]) Occupational Therapy Current Condition Current Condition Evaluation Date 01/09/22 Treatment Diagnosis Fall with L medial femoral condyle & lateral tivial plateau fx. Diagnosis Onset Date 01/09/22 Post Operative Precautions Other Precautions Pt is to wear a hinge brace Weight Bearing Status Weight Bearing Status Non-Weight Bearing M3 OT- IP Subjective and Pain Start: 01/09/22 13:05 Freq: Status: Active Protocol: Document 01/13/22 15:15 CGR (Rec: 01/13/22 15:18 CGR [id number]) OT- Subjective Occupational Therapy Visit Type Type Progress Note Visit Start Time 11:30 Visit Stop Time 11:45 Total Visit Minutes 15 Occupational Therapy Visit Comments Patient Comments I just want a clean gown. OT Pain Assessment Pain When Pain Assessed At Rest Pain Present Pain Present Denied Pain M4 OT- IP ADL's Start: 01/09/22 13:05 Freq: Status: Active Protocol: Document 01/13/22 15:15 CGR (Rec: 01/13/22 15:18 CGR [id number]) OT [id number] Comments OT Self-Feeding Comments not meal time OT ADL-Grooming Comments OT Grooming Comments pt declined OT ADL-Oral Care Comments Oral Care Comments pt already performed OT ADL-Dressing General Eval Upper Body Dressing Ability Minimal Assistance Comments OT Dressing Comments min a for clean hospital gown OT ADL-Toileting Comments OT Toileting Comments not performed OT ADL-Bathing Comments OT Bathing Comments not performed, pt declined sponge bath seated in bed. M5 OT- IP IADL's Start: 01/09/22 13:05 Freq: Status: Active Protocol: Document 01/09/22 13:05 CGR (Rec: 01/09/22 13:29 CGR [id number]) OT-Instrumental Activities of Daily Living Deficits IADL Deficits Identified Deficits Home Safety Awareness Awareness of Need for Assistance at Home Decreased Awareness Ability to Problem Solve Emergency Unable to Problem Solve Situations Home Safety Comments Pt displays inconsistent cognition. At times she is able to follow commands and answer questions and at other times she trails off and is unable to answer questions. Medication Management Medication Management Comments concerns regarding pts ability to perform safely Money Management Money Management Comments concerns regarding pts ability to perform safely Meal Preparation Meal Preparation Caregiver Provides Assist Sprayer Automatic Spray Machine Sprayer Automatic Spray Machine Caregiver Provides Assist Driving Driving Comments pt does not drive. M6 OT- IP Functional Cognition Start: 01/09/22 13:05 Freq: Status: Active Protocol: Document 01/10/22 11:19 CGR (Rec: 01/10/22 11:33 CGR [id number]) Cognitive Factors Limiting Selfcare Function Cognitive Ability Level of Alertness Alert,Confusional State Patient Orientation Name,Month,Date,Year,Place, Situation Attention Span Ability Unable to Focus Cognitive Comments Cognitive Assessment Comments Pt needing lots of cues and difficulty focusing at time. Pt still trails off at times. OT- Vision and Hearing OT- Hearing Assessment OT- Hearing Assessment Hearing Impaired,Use of Hearing Aids OT- Vision Assessment Vision History Cataracts Visual Acuity Glasses For Reading Visual Attentiveness WFL Occular Pursuits WFL Visual Convergence WFL Vision Assessment Comments Pt has a hx of cateract sx and now only needs readers when she is reading. 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 M7 OT- IP Mobility and Balance Start: 01/09/22 13:05 Freq: Status: Active Protocol: Document 01/12/22 13:34 CGR (Rec: 01/12/22 13:43 CGR [id number]) OT- Bed Mobility Assessment Supine to Sit Supine to Sit Assist Total Assistance,2 Person Assistance Sit to Supine Sit to Supine Assist Total Assistance,2 Person Assistance Scooting Scooting to Edge of Bed Total Assistance,2 Person Assistance Scooting Up and Down in Bed Total Assistance,2 Person Assistance OT-Transfer Assessment Sit to and From Stand Sit to and from Stand Total Assistance,2 Person Assistance Comments Mobility Comments Attempted sit to stand with total x 2 for 3 attempts. Pt was able to get buttox off the bed on the 3rd attempt for 2- 3 seconds. Pt then returned to bed at end of session. OT- Gait Assessment Comments Gait Ability Comments does not occur OT- Balance Assessment Sitting Balance and Reactions Static Sitting Balance Ability Fair Dynamic Sitting Balance Ability Fair M8 OT- IP Objective Assessments Start: 01/09/22 13:05 Freq: Status: Active Protocol: Document 01/10/22 11:19 CGR (Rec: 01/10/22 11:33 CGR [id number]) OT Gross Range of Motion Upper Extremity Range of Motion Assessment Bilaterally Impaired ROM Impairments L sld 0-90, R shld 0-50 OT Strength Comments Strength Comments grossly 4-/5 OT- Coordination Assessment Upper Extremity Finger to Nose Test Within Functional Limits Finger Tapping Test Within Functional Limits OT-Muscle Tone Assessment Muscle Tone WNL Yes OT Sensation Assessment Edema Edema Absent M9 OT- IP Assessment and Plan Start: 01/09/22 13:05 Freq: Status: Active Protocol: Document 01/13/22 15:15 CGR (Rec: 01/13/22 15:18 CGR [id number]) OT Summary Assessment and Plan Potential Rehabilitation Potential Good Analytic Complexity at Evaluation High Summary OT Impairments Pain,Range of Motion,Strength, Balance,Functional Cognition, Functional Mobility,Grooming, Dressing,Toileting,Bathing, Toilet Transfers,Shower Transfers,Activity Tolerance Progress Towards Goals Slow Progress due to Pain,Slow Progress due to Cognition Assessment Summary Pt presents as a high complexity evaluation s/p admit for fall with L commuted fx of the medial femoral condyle and lateral tibial plateau. Pt planned for discharge today to SNF and agreeable to in bed limited ADLs. Pt donned clean gown and requested assist with getting coffee. Pt left sitting up in bed at end of session. Call button within reach and all needs at time met. Goals Grooming Goal Independent Dressing Goal Independent Toileting Goal Independent Bathing Goal Independent Toilet Transfer Goal Independent Shower Transfer Goal Independent Days to Meet Goals 30 Frequency of Treatment Frequency Of Treatment Once a Day Treatment Plan OT Treatment Plan ADL Training,Functional Cognition Training,Functional Mobility,Patient/Family Education,Discharge Planning Other Treatment Recommendations and Next cog assessment. ADls seated Treatment Focus EOB, cotreat Discharge Recommendations OT Discharge Recommendations SNF Rehab Transportation Needs at Discharge Stretcher/Ambulance
[2022-01-13] MEDS: AMLODIPINE 5 MG TABLET 10 MG PO (11:47)
[2022-01-13] MEDS: METOPROLOL IR 50 MG TABLET PO (11:47)
[2022-01-13] MEDS: ASPIRIN EC 81 MG TABLET PO (11:47)
[2022-01-13] MEDS: ARIPiprazole 10 MG TABLET 5 MG PO (11:47)
[2022-01-13] MEDS: FUROSEMIDE 20 MG TABLET PO (11:47)
[2022-01-13] MEDS: PANTOPRAZOLE DR 40 MG TABLET PO (11:47)
[2022-01-13] MEDS: CITALOPRAM 10 MG TABLET 15 MG PO (11:48)
[2022-01-13] MEDS: ENOXAPARIN 40 MG/0.4 ML SYRINGE SUBCUT (11:48)
[2022-01-13] MEDS: NYSTATIN POWDER 15GM 1 APPLIC TOP (11:49)
--- NOTE | 2022-01-13 12:05 | PC.NURSE ---
Patient has her immobilizer on to the left leg. Her Moderna Covid booster has been given to the left deltoid. She is being discharged to a SNF up in [place].
[2022-01-13 12:48] LABS: COVID19 -Nasal RAPID Negative (Negative)
--- NOTE | 2022-01-13 13:07 | PT-IP ANOTE ---
pt d/c plan to SNF today and working with OT this morning. unable to see pt for PT
== END 2022-01-13 13:00 ==
LOC: ED 01-09 00:20 → AC 01-09 12:41
PROVIDERS: Internal Medicine; Student in an Organized Health Care Education/Training Program; Admitting Provider Nurse Practitioner Family; Emergency Provider Emergency Medicine; Referring Provider Emergency Medicine; Visit Provider Nurse Practitioner Family
DX: S72.432A Displaced fracture of medial condyle of left femur, initial encounter for closed fracture (principal); S82.142A Displaced bicondylar fracture of left tibia, initial encounter for closed fracture; I16.0 Hypertensive urgency; W01.10XA Fall on same level from slipping, tripping and stumbling with subsequent striking against unspecified object, initial encounter; Y92.009 Unspecified place in unspecified non-institutional (private) residence as the place of occurrence of the external cause; I50.32 Chronic diastolic (congestive) heart failure; I11.0 Hypertensive heart disease with heart failure; I89.0 Lymphedema, not elsewhere classified; E78.5 Hyperlipidemia, unspecified; M79.7 Fibromyalgia; J44.9 Chronic obstructive pulmonary disease, unspecified; Z99.81 Dependence on supplemental oxygen; E66.01 Morbid (severe) obesity due to excess calories; Z68.43 Body mass index [BMI] 50.0-59.9, adult; K21.9 Gastro-esophageal reflux disease without esophagitis; F32.A Depression, unspecified; Z20.822 Contact with and (suspected) exposure to COVID-19; Z23 Encounter for immunization
CPT/HCPCS: 0013A; 36415; 73552; 73700; 80048; 80053; 81001; 82550; 83735; 83880; 84443; 84484; 85014; 85018; 85025; 87086; 87635; 91301; 93971; 94640; 94760; 96372; 97162; 97167; 97530; 97535; 99285; C9803; G0378; J1650